=== PATIENT | female | born 1980 | race African-American/Black ===

== ENCOUNTER 2016-04-27 16:17 | Emergency (ER) | payer MEDICARE, OTHER ==
[~2016-04-27] VITALS: Ht 157.5 cm; Wt 95.0 kg
[~2016-04-27 16:17] MED LIST: 1-ME1LIQ PO; CALC667T PO; CLON.2 PO; FURO20 PO; LOSA100T PO; NOVONP2 SQ; NOVORP2 SQ
[2016-04-27 16:20] VITALS: BP 177/82; PULSE 90; RESP 20; TEMP 98.1; O2SAT 96
--- NOTE | 2016-04-27 17:08 | PD ---
Physical Exam Time Seen by Provider: 17:06 Narrative 35 year old female with ESRD on hemodialysis with HTN and DM presents to the ED for evaluation of L 3rd digit wound worsening over the last month. No recollection of injury. Pain radiates up the arm. No fever or chills. No n/v/d. No cp or tightness. Dialysis MWF. Data Data Last Documented VS Vital Signs Date Time Temp Pulse Resp B/P Pulse Ox O2 Delivery O2 Flow Rate FiO2 04/27/16 16:20 98.1 90 20 177/82 96 Room Air Orders Complete Blood Count With Diff (04/27/16 17:11) Basic Metabolic Panel (Bmp) (04/27/16 17:11) Coag Profile (04/27/16 17:11) Hand, Complete ([id number]) (04/27/16 ) Labs Laboratory Tests Test 04/27/16 18:00 White Blood Count 7.7 TH/MM3 Red Blood Count 3.86 MIL/MM3 Hemoglobin 12.3 GM/DL Hematocrit 36.6 % Mean Corpuscular Volume 94.8 FL Mean Corpuscular Hemoglobin 31.9 PG Mean Corpuscular Hemoglobin 33.7 % Concent Red Cell Distribution Width 13.9 % Platelet Count 193 TH/MM3 Mean Platelet Volume 7.3 FL Neutrophils (%) (Auto) 81.4 % Lymphocytes (%) (Auto) 11.5 % Monocytes (%) (Auto) 5.6 % Eosinophils (%) (Auto) 1.1 % Basophils (%) (Auto) 0.4 % Neutrophils # (Auto) 6.3 TH/MM3 Lymphocytes # (Auto) 0.9 TH/MM3 Monocytes # (Auto) 0.4 TH/MM3 Eosinophils # (Auto) 0.1 TH/MM3 Basophils # (Auto) 0.0 TH/MM3 CBC Comment DIFF FINAL Differential Comment Prothrombin Time 9.9 SEC Prothromb Time International 0.9 RATIO Ratio Activated Partial 25.3 SEC Thromboplast Time Sodium Level 133 MEQ/L Potassium Level 3.6 MEQ/L Chloride Level 95 MEQ/L Carbon Dioxide Level 30.9 MEQ/L Anion Gap 7 MEQ/L Blood Urea Nitrogen 24 MG/DL Creatinine 5.44 MG/DL Estimat Glomerular Filtration 11 ML/MIN Rate Random Glucose 367 MG/DL Calcium Level 9.2 MG/DL [facility] Medical Record Reviewed: Yes Supervised Visit with BEVERLEY: No Narrative Course Pt interviewed in triage area; work up initiated Condition: Stable Kelle Richards Apr 27, 2016 17:08
--- NOTE | 2016-04-27 17:53 | RADRPT ---
EXAM DATE/TIME: 04/27/2016 17:30 [facility] COMPARISON: No previous studies available for comparison. INDICATIONS : Right hand pain, radiates up arm, no known injury. MEDICAL HISTORY : Hypertension. End stage renal disease. Diabetes. Hemodialysis. SURGICAL HISTORY : None. ENCOUNTER: Initial ACUITY: 1 month PAIN SCORE: 7/10 LOCATION: Right hand. FINDINGS: Three view examination of the left hand demonstrates no soft tissue swelling, dislocation, or fractur e. The carpal bones appear intact. The interphalangeal and metacarpophalangeal joints are intact. Bony mineralization is normal. CONCLUSION: Negative for fracture or dislocation. Followup in 7-10 days is suggested if symptoms persist. Vasile Clark MD FACR on April 27, 2016 at 17:52 Board Certified Radiologist. This report was verified electronically.
[2016-04-27 18:52] LABS: AUTOMATED NEUTROPHIL # 6.3 TH/MM3 (1.8-7.7); BASOPHIL % 0.4 % (0.0-2.0); EOSINOPHIL # 0.1 TH/MM3 (0-0.4); EOSINOPHIL % 1.1 % (0.0-4.0); HEMATOCRIT 36.6 % (35.0-46.0); HEMO FLAGS DIFF FINAL; LYMPH % 11.5 % (9.0-44.0); LYMPHOCYTE # 0.9 TH/MM3 (1.0-4.8); MEAN CELL VOLUME 94.8 FL (80.0-100.0); MEAN CORPUSCULAR HEMOGLOBIN 31.9 PG (27.0-34.0); MEAN CORPUSCULAR HGB CONC 33.7 % (32.0-36.0); MONO % 5.6 % (0.0-8.0); NEUT % 81.4 % (16.0-70.0); PLATELET COUNT 193 TH/MM3 (150-450); RED BLOOD COUNT 3.86 MIL/MM3 (4.00-5.30); RED CELL DISTRIBUTION WIDTH 13.9 % (11.6-17.2); WHITE BLOOD COUNT 7.7 TH/MM3 (4.0-11.0)
[2016-04-27 19:07] LABS: APTT (PATIENT) 25.3 SEC (24.3-30.1); INTERNATIONAL NORMALIZED RATIO 0.9 RATIO; PROTHROMBIN TIME - PATIENT 9.9 SEC (9.8-11.6)
[2016-04-27 19:08] LABS: BICARBONATE 30.9 MEQ/L (21.0-32.0); POTASSIUM 3.6 MEQ/L (3.5-5.1)
[2016-04-27 20:19] VITALS: BP 177/89; PULSE 77; RESP 17; O2SAT 100
--- NOTE | 2016-04-27 20:40 | PD ---
HPI . Scabbed and discoloration to the left hand for a month Chief Complaint: Skin Problem Time Seen by Provider: 20:08 Travel History International Travel<30 days: No Contact w/Intl Traveler<30days: No Traveled to known affect area: No History of Present Illness HPI Patient presents with a scab and left hand discoloration for about a month. She reports that she has been on Cleocin for same for about a week. However, she has not taken the Cleocin today. She is not having associated fevers or chills. She is a dialysis patient. She states that she was told at dialysis to come to us today because it is getting worse rather than better. PFSH Past Medical History Arthritis: No Asthma: No Autoimmune Disease: No Blood Disorders: No Anxiety: No Depression: Yes Heart Rhythm Problems: No Cancer: No Cardiovascular Problems: Yes High Cholesterol: No Chemotherapy: No Chest Pain: No Congestive Heart Failure: No COPD: No Cerebrovascular Accident: No Diabetes: Yes Patient Takes Glucophage: No Dialysis: Yes () Diminished Hearing: No Deep Vein Thrombosis: Yes (RUE ) Endocrine: Yes GERD: No Glaucoma: No Genitourinary: Yes Headaches: No Hepatitis: No Hiatal Hernia: No Hypertension: Yes Immune Disorder: No Implanted Vascular Access Dvce: Yes (FISTULA L ARM) Kidney Stones: No Medical other: Yes (DIALYSIS --.) Musculoskeletal: No Neurologic: Yes Psychiatric: No Reproductive: No Respiratory: No Immunizations Current: Yes Migraines: Yes Myocardial Infarction: No Radiation Therapy: No Renal Failure: Yes Seizures: No Sickle Cell Disease: No Sleep Apnea: No Thyroid Disease: No Ulcer: No ?: Not LMP: 04/2016 : 3 Para: 2 Miscarriage: 0 : 1 Past Surgical History Abdominal Surgery: No AICD: No Appendectomy: No Arteriovenous Shunt: Yes Cardiac Surgery: No Section: Yes Cholecystectomy: No Ear Surgery: No Endocrine Surgery: No Eye Surgery: No Genitourinary Surgery: Yes (TENKOFF CATHETER PLACED 11/25/2010 & VASCATH ) Gynecologic Surgery: Yes (C SECTION X2) Insulin Pump: No Joint Replacement: No Neurologic Surgery: No Oral Surgery: No Pacemaker: No Thoracic Surgery: No Other Surgery: Yes (L. Upper Arm Fistula ) Social History Alcohol Use: Yes (OCCASIONALLY) Tobacco Use: No Substance Use: No Allergies-Medications (Allergen,Severity, Reaction): Coded Allergies: Penicillin (Verified Allergy, Severe, HIVES,RASH, 04/27/16) Reported Meds & Prescriptions Reported Meds & Active Scripts Active Review of Systems Except as stated in HPI: all other systems reviewed are Neg General / Constitutional: No: Fever, Chills Skin: Positive Change in Pigmentation, Positive Lesions Physical Exam Narrative GENERAL: Patient awake appearing female in no acute distress SKIN: Warm and dry. Esteban appearance of the skin of the left hand compatible with her circulation. She has a scab on her left third finger. There is no warmth or fluctuance. HEAD: Atraumatic. Normocephalic. EYES: Pupils equal and round. NECK: Trachea midline. Neck supple. CARDIOVASCULAR: Regular rate and rhythm. RESPIRATORY: No accessory muscle use. MUSCULOSKELETAL: No obvious deformities. No edema. NEUROLOGICAL: Awake and alert. No obvious cranial nerve deficits. Motor grossly within normal limits. Normal speech. PSYCHIATRIC: Appropriate mood and affect; insight and judgment normal. Data Data Last Documented VS Vital Signs Date Time Temp Pulse Resp B/P Pulse Ox O2 Delivery O2 Flow Rate FiO2 04/27/16 20:19 79 17 04/27/16 20:19 177/89 100 Room Air 04/27/16 16:20 98.1 Orders Complete Blood Count With Diff (04/27/16 17:11) Basic Metabolic Panel (Bmp) (04/27/16 17:11) Coag Profile (04/27/16 17:11) Hand, Complete ([id number]) (04/27/16 ) Labs Laboratory Tests Test 04/27/16 18:00 White Blood Count 7.7 TH/MM3 Red Blood Count 3.86 MIL/MM3 Hemoglobin 12.3 GM/DL Hematocrit 36.6 % Mean Corpuscular Volume 94.8 FL Mean Corpuscular Hemoglobin 31.9 PG Mean Corpuscular Hemoglobin 33.7 % Concent Red Cell Distribution Width 13.9 % Platelet Count 193 TH/MM3 Mean Platelet Volume 7.3 FL Neutrophils (%) (Auto) 81.4 % Lymphocytes (%) (Auto) 11.5 % Monocytes (%) (Auto) 5.6 % Eosinophils (%) (Auto) 1.1 % Basophils (%) (Auto) 0.4 % Neutrophils # (Auto) 6.3 TH/MM3 Lymphocytes # (Auto) 0.9 TH/MM3 Monocytes # (Auto) 0.4 TH/MM3 Eosinophils # (Auto) 0.1 TH/MM3 Basophils # (Auto) 0.0 TH/MM3 CBC Comment DIFF FINAL Differential Comment Prothrombin Time 9.9 SEC Prothromb Time International 0.9 RATIO Ratio Activated Partial 25.3 SEC Thromboplast Time Sodium Level 133 MEQ/L Potassium Level 3.6 MEQ/L Chloride Level 95 MEQ/L Carbon Dioxide Level 30.9 MEQ/L Anion Gap 7 MEQ/L Blood Urea Nitrogen 24 MG/DL Creatinine 5.44 MG/DL Estimat Glomerular Filtration 11 ML/MIN Rate Random Glucose 367 MG/DL Calcium Level 9.2 MG/DL [facility] Medical Decision Making Medical Screen Exam Complete: Yes Emergency Medical Condition: Yes Differential Diagnosis My differential diagnosis includes but is not limited to cellulitis, abscess, vascular insufficiency, burn, abrasion Narrative Course Patient presents to us from dialysis for the evaluation of a scab on her left hand with some associated skin color changes. The appearance is not typical of infection. It is more typical of vascular insufficiency. There is no warmth. There is no fluctuance. The redness is more of a esteban red than a bright red normally seen with cellulitis. White blood count is normal at 7.7. The patient should continue her current antibiotic therapy. Diagnosis Primary Impression: Peripheral vascular disease Disposition: DISCHARGE HOME Condition: Stable Valeri Heredia MD Apr 27, 2016 20:40
[2016-04-27] MEDS ORDERED: NOVONP2 SQ (20:58)
[2016-04-27] MEDS ORDERED: NOVORP2 SQ (20:58)
[2016-04-27] MEDS ORDERED: LEVA750T PO (20:58)
[2016-05-06] MEDS ORDERED: AMLO10TA2 PO (15:06)
[2016-05-06] MEDS ORDERED: CLON0.2T PO (15:06)
[2016-05-06] MEDS ORDERED: CALC668T PO (15:06)
[2016-05-06] MEDS ORDERED: LOSA25TA PO (15:06)
[2016-05-06] MEDS ORDERED: FURO40TA PO (15:06)
[2016-08-29] MEDS ORDERED: ZOLO100T PO (14:22)
[2016-08-29] MEDS ORDERED: ABIL2TAB2 PO (14:22)
[2016-09-30] MEDS ORDERED: CALC1CAP PO (11:44)
[2016-09-30] MEDS ORDERED: HYDR-3535 PO (14:26)
[2016-10-03] MEDS ORDERED: GENT0.1C TOPICAL (09:10)
== END 2016-04-27 20:59 | disposition home or self-care (01) ==
LOC: NEPC 16:17
DX: I73.9 Peripheral vascular disease, unspecified (principal); E11.22 Type 2 diabetes mellitus with diabetic chronic kidney disease; I12.0 Hypertensive chronic kidney disease with stage 5 chronic kidney disease or end stage renal disease; N18.6 End stage renal disease; Z99.2 Dependence on renal dialysis
CPT/HCPCS: 73130; 80048; 85025; 85610; 85730; 99283

== ENCOUNTER → 2016-07-19 | Outpatient (CLI) | payer MEDICARE, OTHER ==
[~2016-07-19] MED LIST changes: -1-ME1LIQ PO; +ABIL2TAB2 PO; +AMLO10TA2 PO; +CALC1CAP PO; -CALC667T PO; +CALC668T PO; -CLON.2 PO; +CLON0.2T PO; -FURO20 PO; +FURO40TA PO; +GENT0.1C TOPICAL; +HYDR-3535 PO; -LOSA100T PO; +LOSA25TA PO; +ZOLO100T PO
[2016-07-19 11:26] LABS: RHEUMATOID FACTOR TRIGGER LESS THAN 10.0 IU/ML (0.0-14.9)
== END ==
LOC: CLAB 10:31
PROVIDERS: ATTEND Family Medicine
DX: M25.50 Pain in unspecified joint (principal); L98.499 Non-pressure chronic ulcer of skin of other sites with unspecified severity
CPT/HCPCS: 36415; 86038; 86430

== ENCOUNTER → 2016-08-23 | Outpatient (CLI) | payer MEDICARE, OTHER ==
[2016-08-23 14:23] LABS: BASOPHIL % 0.6 % (0.0-2.0); EOSINOPHIL # 0.1 TH/MM3 (0-0.4); EOSINOPHIL % 2.6 % (0.0-4.0); HEMATOCRIT 32.8 % (35.0-46.0); HEMO FLAGS DIFF FINAL; LYMPH % 20.5 % (9.0-44.0); LYMPHOCYTE # 1.2 TH/MM3 (1.0-4.8); MEAN CELL VOLUME 98.1 FL (80.0-100.0); MEAN CORPUSCULAR HGB CONC 33.6 % (32.0-36.0); MONO % 6.4 % (0.0-8.0); NEUT % 69.9 % (16.0-70.0); PLATELET COUNT 181 TH/MM3 (150-450); RED BLOOD COUNT 3.34 MIL/MM3 (4.00-5.30); WHITE BLOOD COUNT 5.7 TH/MM3 (4.0-11.0)
[2016-08-23 15:06] LABS: BICARBONATE 26.5 MEQ/L (21.0-32.0); POTASSIUM 5.5 MEQ/L (3.5-5.1)
== END ==
LOC: CLAB 13:46
PROVIDERS: ATTEND Surgery Vascular Surgery
DX: N18.6 End stage renal disease (principal)
CPT/HCPCS: 36415; 80048; 85025

== ENCOUNTER → 2016-08-30 | Day surgery (SDC) | payer MEDICARE, OTHER ==
[~2016-08-30] VITALS: Ht 157.5 cm; Wt 104.4 kg
[~2016-08-30] MED LIST changes: +*LABETALOL HCL 100 MG/20 ML VIAL PERIprocedural Use ONLY ONE; +BUPIVACAINE/EPINEPHRINE 0.25% 50 ML VIAL ONE; +CHLORHEXIDINE GLUCONATE 2 % 1 PACK (2 CLOTHS) TOPICAL PRN; +FAMOTIDINE 20 MG/2 ML VIAL ONE; +HEPARIN SODIUM - SQ 10,000 UNITS/ML VIAL ONE; +INSULIN HUMAN REGULAR 1,000 UNITS/10 ML VIAL SQ PRN; +IOHEXOL 350 MG/ML 50 ML BTL (for Cath Lab) ONE; +KETAMINE HCL 500 MG/5 ML VIAL ONE; +LACTATED RINGER'S 1000 ML IV PRN; +METOPROLOL TARTRATE 25 MG TAB PO PRN; +MIDAZOLAM HCL 2 MG/2 ML VIAL ONE; +ONDANSETRON HCL 4 MG/2 ML VIAL IV PUSH ONE; +PHENYLEPH/NS 1000 MCG/10 ML SYR IV ONE; +POVIDONE IODINE 5% (ANTISEPSIS KIT) 4 APPLICATIONS EACH NARE PRN; +PROPOFOL 200 MG/20 ML AMP IV ONE; +SODIUM CHLORID 0.9% 500 ML INJ 500 ML IV ONE; +SODIUM CHLORID 0.9% 500 ML IV PRN; +VANCOMYCIN HCL 1000 MG ON-CALL/NS 250 ML IV SCH; +VANCOMYCIN HCL 1000 MG VIAL ONE
[2016-08-30 09:55] VITALS: BP 186/87; PULSE 85; RESP 20; TEMP 99.3; O2SAT 99
[2016-08-30 11:24] LABS: AUTOMATED NEUTROPHIL # 3.3 TH/MM3 (1.8-7.7); BASOPHIL % 0.7 % (0.0-2.0); EOSINOPHIL # 0.1 TH/MM3 (0-0.4); EOSINOPHIL % 2.5 % (0.0-4.0); HEMATOCRIT 32.4 % (35.0-46.0); HEMO FLAGS DIFF FINAL; LYMPH % 22.8 % (9.0-44.0); LYMPHOCYTE # 1.2 TH/MM3 (1.0-4.8); MEAN CELL VOLUME 98.6 FL (80.0-100.0); MEAN CORPUSCULAR HEMOGLOBIN 31.4 PG (27.0-34.0); MEAN CORPUSCULAR HGB CONC 31.8 % (32.0-36.0); MONO % 9.5 % (0.0-8.0); NEUT % 64.5 % (16.0-70.0); PLATELET COUNT 129 TH/MM3 (150-450); RED BLOOD COUNT 3.29 MIL/MM3 (4.00-5.30); RED CELL DISTRIBUTION WIDTH 14.8 % (11.6-17.2); WHITE BLOOD COUNT 5.2 TH/MM3 (4.0-11.0)
[2016-08-30 11:47] LABS: BICARBONATE 27.7 MEQ/L (21.0-32.0); POTASSIUM 5.9 MEQ/L (3.5-5.1)
[2016-08-30 14:58] VITALS: BP 149/96; PULSE 74; RESP 18; TEMP 97.8; O2SAT 99
--- NOTE | 2016-08-30 20:19 | MP ---
cc: MORALES EDWARDS JAMES DATE OF SURGERY 08/30/16 PREOPERATIVE DIAGNOSIS Chronic kidney disease. Existing left brachial basilic AV fistula is creating ischemic steel left hand. Needs new permanent hemodialysis access. Prior to planned sacrifice left brachial basilic AV fistula. SURGEON Zane Rock MD ANESTHESIA Local MAC PROCEDURE IN DETAIL With the patient in the supine position and under IV sedation, the right arm, axilla and shoulder were prepped with Betadine and draped in a sterile fashion. One gram of Ancef was administered and, following a protocol time-out, the skin and subcutaneous tissue along the post incisional area was preemptively infiltrated with 0.5% Marcaine with epinephrine. A curvilinear 3 cm incision was performed through which the cephalic vein was circumferentially mobilized. The vein was ligated distally with small hemoclips, transected proximal to the hemoclips, flushed with heparinized saline. Diluted contrast was injected in conjunction with digital C-arm fluoroscopic imaging to assess areas within the proximal cephalic vein which, by duplex scan, exhibited questionable patency. The cephalic vein occluded at the mid biceps level. Multiple large superficial subcutaneous collaterals provided outflow across the thoracic region and eventually collateralized to what appeared to be the azygous. The right axillary and subclavian veins appeared totally occluded, never reconstituted. Given the angiographic findings, plan for right extremity AV access creation will have to be abandoned. The vein was ligated with 4-0 silk. The incision was closed with continuous subcutaneous 4-0 Monocryl, continuous subcuticular 5-0 Monocryl, reinforced with Steri-Strips and covered with sterile gauze. Instrument, needle, sponge count correct x2. No operative complications. The patient returned to the recovery room in stable condition having tolerated procedure well. MD JOSE Kunz/ /3:34 PM /8:09 PM
== END | disposition home or self-care (01) ==
LOC: HSDC 09:07
PROVIDERS: ATTEND Surgery Vascular Surgery
DX: T82.898A Other specified complication of vascular prosthetic devices, implants and grafts, initial encounter (principal); I12.0 Hypertensive chronic kidney disease with stage 5 chronic kidney disease or end stage renal disease; N18.6 End stage renal disease; E11.9 Type 2 diabetes mellitus without complications; Z99.2 Dependence on renal dialysis; Z01.810 Encounter for preprocedural cardiovascular examination; Z01.818 Encounter for other preprocedural examination
CPT/HCPCS: 01844; 36825; 76000; 80048; 82948; 85025; J1644; J1815; J2250; J2370; J2405; J3010; J3370; J7040; Q9967

== ENCOUNTER 2016-10-18 06:34 | Observation (INO) | payer MEDICARE, OTHER ==
[~2016-10-18] VITALS: Ht 157.5 cm; Wt 98.7 kg
[~2016-10-18 06:34] MED LIST changes: -*LABETALOL HCL 100 MG/20 ML VIAL PERIprocedural Use ONLY ONE; -BUPIVACAINE/EPINEPHRINE 0.25% 50 ML VIAL ONE; -CALC668T PO; -CHLORHEXIDINE GLUCONATE 2 % 1 PACK (2 CLOTHS) TOPICAL PRN; -FAMOTIDINE 20 MG/2 ML VIAL ONE; -HEPARIN SODIUM - SQ 10,000 UNITS/ML VIAL ONE; -INSULIN HUMAN REGULAR 1,000 UNITS/10 ML VIAL SQ PRN; -IOHEXOL 350 MG/ML 50 ML BTL (for Cath Lab) ONE; -KETAMINE HCL 500 MG/5 ML VIAL ONE; -LACTATED RINGER'S 1000 ML IV PRN; -METOPROLOL TARTRATE 25 MG TAB PO PRN; -MIDAZOLAM HCL 2 MG/2 ML VIAL ONE; -ONDANSETRON HCL 4 MG/2 ML VIAL IV PUSH ONE; -PHENYLEPH/NS 1000 MCG/10 ML SYR IV ONE; -POVIDONE IODINE 5% (ANTISEPSIS KIT) 4 APPLICATIONS EACH NARE PRN; -PROPOFOL 200 MG/20 ML AMP IV ONE; -SODIUM CHLORID 0.9% 500 ML INJ 500 ML IV ONE; -SODIUM CHLORID 0.9% 500 ML IV PRN; -VANCOMYCIN HCL 1000 MG ON-CALL/NS 250 ML IV SCH; -VANCOMYCIN HCL 1000 MG VIAL ONE
[2016-10-18] MEDS ORDERED: INSULIN HUMAN REGULAR 1,000 UNITS/10 ML VIAL SQ PRN (07:00)
[2016-10-18] MEDS ORDERED: CHLORHEXIDINE GLUCONATE 2 % 1 PACK (2 CLOTHS) TOPICAL PRN (07:00)
[2016-10-18] MEDS ORDERED: VANCOMYCIN HCL 1000 MG ON-CALL/NS 250 ML IV SCH ×2 (07:00)
[2016-10-18] MEDS ORDERED: POVIDONE IODINE 5% (ANTISEPSIS KIT) 4 APPLICATIONS EACH NARE PRN (07:00)
[2016-10-18] MEDS ORDERED: LACTATED RINGER'S 1000 ML IV PRN (07:00)
[2016-10-18] MEDS ORDERED: METOPROLOL TARTRATE 25 MG TAB PO PRN (07:00)
[2016-10-18] MEDS ORDERED: SODIUM CHLORID 0.9% 500 ML IV PRN (07:00)
[2016-10-18 07:19] VITALS: BP 153/78; PULSE 74; RESP 18; TEMP 98.4; O2SAT 99
[2016-10-18] MEDS ORDERED: HEPARIN SODIUM - SQ 10,000 UNITS/ML VIAL ONE (07:37)
[2016-10-18 07:48] LABS: AUTOMATED NEUTROPHIL # 5.4 TH/MM3 (1.8-7.7); BASOPHIL # 0.1 TH/MM3 (0-0.2); BASOPHIL % 0.7 % (0.0-2.0); EOSINOPHIL # 0.1 TH/MM3 (0-0.4); EOSINOPHIL % 1.6 % (0.0-4.0); HEMATOCRIT 31.6 % (35.0-46.0); HEMO FLAGS DIFF FINAL; LYMPH % 15.9 % (9.0-44.0); LYMPHOCYTE # 1.2 TH/MM3 (1.0-4.8); MEAN CELL VOLUME 96.4 FL (80.0-100.0); MEAN CORPUSCULAR HEMOGLOBIN 32.7 PG (27.0-34.0); MEAN CORPUSCULAR HGB CONC 33.9 % (32.0-36.0); NEUT % 73.8 % (16.0-70.0); PLATELET COUNT 166 TH/MM3 (150-450); RED BLOOD COUNT 3.28 MIL/MM3 (4.00-5.30); RED CELL DISTRIBUTION WIDTH 14.4 % (11.6-17.2); WHITE BLOOD COUNT 7.3 TH/MM3 (4.0-11.0)
[2016-10-18 07:57] LABS: BICARBONATE 27.2 MEQ/L (21.0-32.0); POTASSIUM 5.5 MEQ/L (3.5-5.1)
[2016-10-18] MEDS ORDERED: FAMOTIDINE 20 MG/2 ML VIAL ONE (08:05)
[2016-10-18] MEDS ORDERED: MIDAZOLAM HCL 2 MG/2 ML VIAL ONE (08:05)
[2016-10-18] MEDS ORDERED: KETAMINE HCL 500 MG/5 ML VIAL ONE (08:05)
[2016-10-18] MEDS ORDERED: BUPIVACAINE/EPINEPHRINE 0.5% 50 ML VIAL INFIL ONE (08:48)
--- NOTE | 2016-10-18 09:57 | EKG ---
Date Performed: 10/18/2016 Time Performed: 07:22:19 PTAGE: 35 years EKG: Sinus rhythm NORMAL ECG Compared to prior tracing no significant change PREVIOUS TRACING : 08/20/2014 00.54 DOCTOR: Osbaldo Tracy Interpretating Date/Time 10/18/2016 09:51:57
[2016-10-18] MEDS ORDERED: IOHEXOL 350 MG/ML 50 ML BTL (for RAD DIAG) ONE (12:00)
[2016-10-18] MEDS ORDERED: ONDANSETRON HCL 4 MG/2 ML VIAL IV PUSH ONE (12:00)
[2016-10-18] MEDS ORDERED: ePHEDrine/NS 25 MG/5 ML SYR IV ONE (12:00)
[2016-10-18] MEDS ORDERED: NS 500 ML (EXCEL BAG) 500 ML BAG IV ONE (12:00)
[2016-10-18] MEDS ORDERED: PHENYLEPH/NS 1000 MCG/10 ML SYR IV ONE (12:00)
[2016-10-18] MEDS ORDERED: PROPOFOL 200 MG/20 ML AMP IV ONE (12:00)
[2016-10-18] MEDS ORDERED: fentaNYL CITRATE 250 MCG/5 ML AMP ONE (12:34)
[2016-10-18] MEDS ORDERED: ONDANSETRON HCL 4 MG/2 ML VIAL IV PUSH PRN (14:15)
[2016-10-18] MEDS ORDERED: DEXTROSE 50% IN WATER 50 ML VIAL(D50) IV PUSH PRN (14:30)
[2016-10-18] MEDS ORDERED: PLEASE DISCONTINUE PREVIOUS SUPPLEMENTAL SCALE INSULIN ORDERS ONE (14:30)
[2016-10-18] MEDS ORDERED: GLUCAGON 1 MG/ML VIAL OTHER PRN (14:30)
[2016-10-18] MEDS ORDERED: DO NOT ADM ANY ANTICOAGULANT DRUGS PRN (14:45)
[2016-10-18 16:00] VITALS: BP 154/76; PULSE 81; RESP 19; TEMP 97.8; O2SAT 98
[2016-10-18] MEDS: MEDIUM DOSE INSULIN NOVOLOG SUPPLEMENTAL SCALE SQ SCH ×2 (16:00→23:35)
[2016-10-18] MEDS: ACETAMINOPHEN/HYDROcodone 325 MG/7.5 MG TAB PO PRN ×2 (18:26→23:37)
[2016-10-18 20:00] VITALS: BP 145/64; PULSE 78; RESP 19; TEMP 98.5; O2SAT 95
[2016-10-18] MEDS ORDERED: LOSARTAN 25 MG TAB PO PRN (20:00)
[2016-10-18] MEDS: FUROSEMIDE 40 MG TAB PO SCH (20:40)
[2016-10-18] MEDS: cloNIDine HCL 0.2 MG TAB PO SCH (20:40)
[2016-10-19] VITALS: BP 141/60; PULSE 71; RESP 19; TEMP 98.6; O2SAT 95
[2016-10-19 04:00] VITALS: BP 129/71; PULSE 72; RESP 19; TEMP 98.2; O2SAT 96
[2016-10-19] MEDS: ACETAMINOPHEN/HYDROcodone 325 MG/7.5 MG TAB PO PRN (06:16)
[2016-10-19] MEDS: MEDIUM DOSE INSULIN NOVOLOG SUPPLEMENTAL SCALE SQ SCH ×2 (06:20→11:00)
[2016-10-19] MEDS ORDERED: INSULIN HUMAN NPH 1,000 UNITS/10 ML VIAL SQ SCH (07:00)
[2016-10-19 08:00] VITALS: BP 104/58; PULSE 75; RESP 19; TEMP 97.5; O2SAT 97
--- NOTE | 2016-10-19 08:08 | MP ---
cc: JAQUI ROCK DATE OF SURGERY October 18, 2016 PREOPERATIVE DIAGNOSIS Progressive steal ischemia left hand status post left brachiobasilic A-V fistula creation. POSTOPERATIVE DIAGNOSIS Progressive steal ischemia left hand status post left brachiobasilic A-V fistula creation. OPERATIVE PROCEDURE Left brachial arteriogram. Distal revascularization and interval ligation with right greater saphenous vein harvest. SURGEON Paresh Rock MD ARBORIST CLIMBER SHUN Gunter ANESTHESIA LMA/local. DESCRIPTION OF THE OPERATIVE PROCEDURE With the patient in the supine position and under LMA, the right groin and thigh were prepped with Betadine, draped in a sterile fashion. 1 gram of vancomycin was administered intravenously. Following a protocol time-out, the skin and subcutaneous tissue overlying the proximal right greater saphenous vein was infiltrated with 0.25% Marcaine with epinephrine. A curvilinear incision was performed along the course of the proximal greater saphenous vein. An approximately 8-cm segment of the vein was circumferentially mobilized, ligated proximally and distally with 4-0 silk ties and divided between the ligatures. The vein was flushed with heparinized saline. The right greater saphenous vein harvest incision was closed with running subcutaneous 4-0 Monocryl, continuous subcuticular 5-0 Monocryl. Steri-Strips and sterile dressing were applied. The left arm, axilla and shoulder were prepped with Betadine and draped in a sterile fashion. The skin and subcutaneous tissue within the old brachiobasilic A-V fistula creation and supra-fistulization scar was infiltrated proximal and distal to the brachial artery to basilic vein anastomosis with 0.25% Marcaine with epinephrine. Incisions were performed overlying the brachial artery proximal and distal to the existing basilic vein anastomosis. The brachial artery was circumferentially mobilized proximally and distally. The brachial artery was accessed proximally with a 21-gauge butterfly needle. Diluted contrast was injected in conjunction with digital C-arm fluoroscopic imaging. This confirmed a widely patent brachial artery. The brachial artery was focally constricted immediately proximal to the basilic vein anastomosis. Beyond the anastomosis, the artery was of normal diameter and bifurcated into unrestricted radial and ulnar arteries. The brachial artery was occluded at the elbow level proximally and distally with Yasargil clips. A vertical arteriotomy was performed along the anteromedial surface. The artery was flushed distally with heparinized saline for regional heparinization. The saphenous vein graft was reversed, spatulated on end and anastomosed end-to-side to the arteriotomy with continuous 7-0 Prolene. The vein graft was tunneled subcutaneously and brought out at the proximal brachial artery exposure site. The vein was occluded immediately proximal to the brachial artery anastomosis and the occluding brachial artery Yasargil clip removed reestablishing pulsatile flow within the [place] brachial artery. The brachial artery was occluded proximally with Yasargil clips, a vertical 4-mm arteriotomy performed along the anteromedial surface and the artery flushed proximally and distally with heparinized saline. The vein graft was trimmed to appropriate length, spatulated on end and anastomosed end-to-side to the arteriotomy with continuous 7-0 Prolene. The occluding Yasargil clips were then removed reestablishing pulsatile flow within the [place] brachial artery as well as into the saphenous vein graft. Significant augmentation of Doppler flow within the distal radial artery occurred with occlusion of the brachial artery immediately proximal to the distal saphenous vein anastomosis. The artery was ligated between the basilic and distal saphenous vein anastomoses with 4-0 silk to complete interval ligation and significantly improve distal flow and resolve any retrograde flow. Strict hemostasis was assured. Both incisions were closed with running subcutaneous 4-0 Monocryl, continuous subcuticular 5-0 Monocryl, reinforced with Steri-Strips and covered with sterile gauze. Instrument, needle and sponge count correct x 2. At the conclusion of the procedure the left radial pulse was easily palpable with robust triphasic Doppler flow. The patient returned to Recovery in stable condition having tolerated the procedure well. Jaqui Rock MD JTS/SSB /6:49 PM /7:52 AM
[2016-10-19] MEDS ORDERED: SERTRALINE HCL 100 MG TAB PO SCH (09:00)
[2016-10-19] MEDS ORDERED: ARIPiprazole 2 MG TAB PO SCH (09:00)
[2016-10-19] MEDS: cloNIDine HCL 0.2 MG TAB PO SCH (09:00)
[2016-10-19] MEDS ORDERED: CALCIUM ACETATE 667 MG CAP PO SCH (09:00)
[2016-10-19] MEDS: FUROSEMIDE 40 MG TAB PO SCH (09:02)
[2016-10-19 12:00] VITALS: BP 110/58; PULSE 76; RESP 19; TEMP 98.6; O2SAT 100
[2016-10-21] MEDS ORDERED: DAKINSFST TOPICAL (09:45)
== END 2016-10-19 16:09 | disposition home or self-care (01) ==
LOC: HSDC 06:34 → N07A 16:16
PROVIDERS: ADMIT Surgery Vascular Surgery; ATTEND Surgery Vascular Surgery
PROC: 06LP0ZZ Occlusion of Right Saphenous Vein, Open Approach (ICD-10-PCS; principal; 2016-10-18 08:07)
DX: T82.898A Other specified complication of vascular prosthetic devices, implants and grafts, initial encounter (principal); E78.5 Hyperlipidemia, unspecified; I12.0 Hypertensive chronic kidney disease with stage 5 chronic kidney disease or end stage renal disease; E11.22 Type 2 diabetes mellitus with diabetic chronic kidney disease; N18.6 End stage renal disease; Z99.2 Dependence on renal dialysis; Z79.84 Long term (current) use of oral hypoglycemic drugs
CPT/HCPCS: 01844; 36838; 76000; 80048; 82948; 85025; 93005; G0378; J1644; J1815; J2250; J2370; J2405; J3010; J3370; J7040; J7050; Q9967

== ENCOUNTER 2016-11-04 23:27 | Inpatient (IN) | payer MEDICARE, OTHER ==
[~2016-11-04] VITALS: Ht 157.5 cm; Wt 99.1 kg
[~2016-11-04 23:27] MED LIST changes: +DAKINSFST TOPICAL
[2016-11-04 23:30] VITALS: BP 162/76; PULSE 91; RESP 16; TEMP 99.4; O2SAT 98
[2016-11-05] VITALS (9 sets, daily range): BP systolic 95–166; BP diastolic 46–74; PULSE 56–90; RESP 14–18; TEMP 95.8–97.8; O2SAT 99–100
[2016-11-05 02:18] LABS: AUTOMATED NEUTROPHIL # 5.9 TH/MM3 (1.8-7.7); BASOPHIL % 0.6 % (0.0-2.0); EOSINOPHIL # 0.2 TH/MM3 (0-0.4); EOSINOPHIL % 2.6 % (0.0-4.0); HEMATOCRIT 33.4 % (35.0-46.0); HEMO FLAGS DIFF FINAL; LYMPH % 15.3 % (9.0-44.0); LYMPHOCYTE # 1.2 TH/MM3 (1.0-4.8); MEAN CELL VOLUME 94.6 FL (80.0-100.0); MEAN CORPUSCULAR HEMOGLOBIN 31.4 PG (27.0-34.0); MEAN CORPUSCULAR HGB CONC 33.2 % (32.0-36.0); MONO % 5.7 % (0.0-8.0); NEUT % 75.8 % (16.0-70.0); PLATELET COUNT 180 TH/MM3 (150-450); RED BLOOD COUNT 3.53 MIL/MM3 (4.00-5.30); RED CELL DISTRIBUTION WIDTH 14.6 % (11.6-17.2); WHITE BLOOD COUNT 7.8 TH/MM3 (4.0-11.0)
[2016-11-05] MEDS ORDERED: CIPROFLOXACIN 400 MG PREMIX 200 ML IV ONE (02:30)
--- NOTE | 2016-11-05 02:31 | RADRPT ---
EXAM DATE/TIME: 11/05/2016 02:06 [facility] COMPARISON: No previous studies available for comparison. INDICATIONS : Right leg swelling. Status post venous graft. RADIATION DOSE: 39.44 CTDIvol (mGy) ; Patient body habitus MEDICAL HISTORY : None SURGICAL HISTORY : Venous graft. ENCOUNTER: Initial ACUITY: 3 weeks PAIN SCALE: 4/10 LOCATION: Right medial leg TECHNIQUE: Volumetric scanning of the femur was performed. Using automated exposure control and adjustment of t he mA and/or kV according to patient size, radiation dose was kept as low as reasonably achievable to obtain optimal diagnostic quality images. DICOM format image data is available electronically for review and comparison. FINDINGS: BONES: No evidence of fracture. Alignment is within normal limits. JOINTS: No evidence of joint narrowing or effusion. SOFT TISSUES: Muscles, tendons, and neurovascular structures are grossly unremarkable. Within the anterior subcutan eous fat there is a 7.7 x 9.6 cm mass. It extends for up to 13.1 cm in length. I suspect a subcutaneo us abscess with some surrounding soft tissue edema possible cellulitis. It abuts the abductor compar tment but I don't see any muscular extend or muscular edema CONCLUSION: Large mass within the subcutaneous fat anteromedially in the right upper leg. No intramuscular involv ement is noted. Juvenal Brooks MD on November 05, 2016 at 2:28 Board Certified Radiologist. This report was verified electronically.
[2016-11-05 02:32] LABS: APTT (PATIENT) 24.7 SEC (24.3-30.1); INTERNATIONAL NORMALIZED RATIO 0.9 RATIO; PROTHROMBIN TIME - PATIENT 10.2 SEC (9.8-11.6)
[2016-11-05 02:36] LABS: BICARBONATE 30.8 MEQ/L (21.0-32.0); POTASSIUM 4.5 MEQ/L (3.5-5.1)
--- NOTE | 2016-11-05 02:44 | PD ---
HPI Chief Complaint: Wound/Suture/Staple Re-Check Time Seen by Provider: 01:48 Travel History International Travel<30 days: No Contact w/Intl Traveler<30days: No Traveled to known affect area: No History of Present Illness HPI 35-year-old female presents to the emergency department for swelling to the right groin. Patient has had progressively worsening increasing swelling to the right groin since undergoing elective repair of her left upper extremity AV fistula with right saphenous vein harvesting 10/18/16. Patient has noted ongoing increasing size of this area and following mentioned it to her commander internal affairs during dialysis and was told to come to the emergency room and to contact her vascular surgeon. Patient attempted to contact her vascular surgeon Dr. Rock but he is out of town. Patient was told to come to the emergency room earlier on Monday but states she could not get to the emergency room because she had childcare issues and presents now for further evaluation. Patient denies any fever chills nausea vomiting abdominal pain lower extremity pain or swelling distal to the site of the harvesting no purulent drainage from the area and no increased warmth although the area is red and swollen. Patient denies other concerns or complaints. Patient is type I diabetic and reports blood sugars 7 well-controlled; patient has renal failure secondary to diabetes and undergoes hemodialysis Tuesdays and Wednesdays. PFSH Past Medical History Arthritis: No Asthma: No Autoimmune Disease: No Blood Disorders: No Anxiety: No Depression: Yes Heart Rhythm Problems: No Cancer: No Cardiovascular Problems: Yes High Cholesterol: No Chemotherapy: No Chest Pain: No Congestive Heart Failure: No COPD: No Cerebrovascular Accident: No Diabetes: Yes (DM I) Patient Takes Glucophage: No Dialysis: Yes () Diminished Hearing: No Deep Vein Thrombosis: Yes (RUE ) Endocrine: Yes GERD: No Glaucoma: No Headaches: No Hepatitis: No Hiatal Hernia: No Hypertension: Yes Immune Disorder: No Kidney Stones: No Medical other: Yes (DIALYSIS --) Musculoskeletal: No Neurologic: No Psychiatric: No Reproductive: No Respiratory: No Immunizations Current: Yes Migraines: Yes Myocardial Infarction: No Radiation Therapy: No Renal Failure: Yes Seizures: No Sickle Cell Disease: No Sleep Apnea: No Thyroid Disease: No Ulcer: No ?: Not LMP: 11/05/16 : 3 Para: 2 Miscarriage: 0 : 1 Past Surgical History Abdominal Surgery: No AICD: No Appendectomy: No Arteriovenous Shunt: Yes Body Medical Devices: lue fistula Cardiac Surgery: No Section: Yes Cholecystectomy: No Ear Surgery: No Endocrine Surgery: No Eye Surgery: No Genitourinary Surgery: Yes (TENKOFF CATHETER PLACED 11/25/2010 & VASCATH ) Gynecologic Surgery: Yes (C SECTION X2) Insulin Pump: No Joint Replacement: No Neurologic Surgery: No Oral Surgery: No Pacemaker: No Thoracic Surgery: No Other Surgery: Yes (L. Upper Arm Fistula ) Social History Alcohol Use: Yes (OCCASIONALLY) Tobacco Use: No Substance Use: No Allergies-Medications (Allergen,Severity, Reaction): Coded Allergies: Penicillin (Verified Allergy, Severe, HIVES,RASH, 11/05/16) Reported Meds & Prescriptions Reported Meds & Active Scripts Active Gentamicin Topical 0.1% Cream 1 Applic TOPICAL BID Apply to affected area(s) Lortab (Hydrocodone-Acetaminophen) 10-325 Mg Tab 1 Tab PO BID PRN Reported Calcium Acetate (Phosphate Binder) 667 Mg Cap 1,334 Mg PO DAILY Abilify (Aripiprazole) 2 Mg Tab 2 Mg PO DAILY Zoloft (Sertraline HCl) 100 Mg Tab 100 Mg PO DAILY Losartan (Losartan Potassium) 25 Mg Tab 25 Mg PO DAILY PRN Furosemide 40 Mg Tab 40 Mg PO BID Amlodipine (Amlodipine Besylate) 10 Mg Tab 20 Mg PO DAILY Clonidine (Clonidine HCl) 0.2 Mg Tab 0.2 Mg PO BID Novolin R Inj (Insulin Human Regular) 1,000 Unit/10 Ml Vial 0 SQ DIRECTED Sliding Scale As Directed. Novolin N Inj (Insulin Human NPH) 1,000 Unit/10 Ml Vial 30 Units SQ BIDAC Review of Systems Except as stated in HPI: all other systems reviewed are Neg Physical Exam Narrative GENERAL: Well-developed well-nourished female in no acute distress no respiratory distress talking on cell phone GCS 15 SKIN: Warm and dry. HEAD: Normocephalic. EYES: No scleral icterus. No injection or drainage. NECK: Supple, trachea midline. No JVD or lymphadenopathy. CARDIOVASCULAR: Regular rate and rhythm without murmurs, gallops, or rubs. RESPIRATORY: Breath sounds equal bilaterally. No accessory muscle use. GASTROINTESTINAL: Abdomen soft, non-tender, nondistended. MUSCULOSKELETAL: No cyanosis, or edema. Attention right groin 15 cm x 12 cm large area of induration and erythema with minimal tenderness at greater saphenous vein harvesting site no fluctuance non-pointing no increased warmth distally extremity is neurovascular tendon intact with 2+ dorsalis pedis pulse and proximally femoral artery pulses 2+ to palpation. BACK: Nontender without obvious deformity. No CVA tenderness. Data Data Last Documented VS Vital Signs Date Time Temp Pulse Resp B/P Pulse Ox O2 Delivery O2 Flow Rate FiO2 11/04/16 23:30 99.4 91 16 162/76 98 Room Air Orders Us Leg Hematoma/Pseudoaneurysm (11/05/16 ) Complete Blood Count With Diff (11/05/16 01:48) Basic Metabolic Panel (Bmp) (11/05/16 01:48) Act Partial Throm Time (Ptt) (11/05/16 01:48) Prothrombin Time / Inr (Pt) (11/05/16 01:48) Lactic Acid (11/05/16 01:48) Blood Culture (11/05/16 01:48) Ct Femur W/O Iv Contrast (11/05/16 ) Ciprofloxacin 400 Mg Premix (Cipro 400 M (11/05/16 02:30) Admit Order (Ed Use Only) (11/05/16 ) ^ Saline Lock (11/05/16 03:31) Resp Oxygen Cristiano C Titrat 1-4 L (11/05/16 ) Notify Dr: Other (11/05/16 03:31) Sodium Chloride 0.9% Flush (Ns Flush) (11/05/16 09:00) Sodium Chloride 0.9% Flush (Ns Flush) (11/05/16 03:45) Consult Vascular Surgery (11/05/16 ) Labs Laboratory Tests Test 11/05/16 01:58 White Blood Count 7.8 TH/MM3 Red Blood Count 3.53 MIL/MM3 Hemoglobin 11.1 GM/DL Hematocrit 33.4 % Mean Corpuscular Volume 94.6 FL Mean Corpuscular Hemoglobin 31.4 PG Mean Corpuscular Hemoglobin 33.2 % Concent Red Cell Distribution Width 14.6 % Platelet Count 180 TH/MM3 Mean Platelet Volume 7.2 FL Neutrophils (%) (Auto) 75.8 % Lymphocytes (%) (Auto) 15.3 % Monocytes (%) (Auto) 5.7 % Eosinophils (%) (Auto) 2.6 % Basophils (%) (Auto) 0.6 % Neutrophils # (Auto) 5.9 TH/MM3 Lymphocytes # (Auto) 1.2 TH/MM3 Monocytes # (Auto) 0.4 TH/MM3 Eosinophils # (Auto) 0.2 TH/MM3 Basophils # (Auto) 0.0 TH/MM3 CBC Comment DIFF FINAL Differential Comment Prothrombin Time 10.2 SEC Prothromb Time International 0.9 RATIO Ratio Activated Partial 24.7 SEC Thromboplast Time Sodium Level 135 MEQ/L Potassium Level 4.5 MEQ/L Chloride Level 96 MEQ/L Carbon Dioxide Level 30.8 MEQ/L Anion Gap 8 MEQ/L Blood Urea Nitrogen 26 MG/DL Creatinine 6.30 MG/DL Estimat Glomerular Filtration 9 ML/MIN Rate Random Glucose 176 MG/DL Lactic Acid Level 1.2 mmol/L Calcium Level 9.5 MG/DL MDM Medical Decision Making Medical Screen Exam Complete: Yes Emergency Medical Condition: Yes Medical Record Reviewed: Yes Interpretation(s) Last Impressions Lower Extremity Ultrasound 11/05/16 0000 Signed Impressions: Service Date/Time: Saturday, November 05, 2016 02:42 - CONCLUSION: Large fluid collection within the subcutaneous fat. There is no evidence of a pseudoaneurysm Juvenal Brooks MD Lower Extremity CT 11/05/16 0000 Signed Impressions: Service Date/Time: Saturday, November 05, 2016 02:06 - CONCLUSION: Large mass within the subcutaneous fat anteromedially in the right upper leg. No intramuscular involvement is noted. Juvenal Brooks MD CBC & BMP Diagram 11/05/16 01:58 Vital Signs Date Time Temp Pulse Resp B/P Pulse Ox O2 Delivery O2 Flow Rate FiO2 11/04/16 23:30 99.4 91 16 162/76 98 Room Air Differential Diagnosis Cellulitis, abscess, hematoma, seroma Narrative Course IV access obtained specimens collected and sent for resulting patient's case discussed with on-call vascular surgeon Dr. Zapata who recommended patient be admitted to medicine service with consult to him in the a.m. as he is covering for patient's surgeon Dr. Rock discussed antibiotic recommends Cipro Patient aware of plan for admission Ultrasound of the soft tissue of the right groin ordered and CT femur noncontrast ordered at recommendation of vascular surgeon as patient dialysis patient and contrast deferred Patient resting comfortably ultrasound shows fluid collection nonspecific seroma versus hematoma versus other fluid collection; CT shows soft tissue swelling Physician Communication Physician Communication discussed with Dr Zapata --CT thigh w/o contrast admit to medicine with AM Vasc consult; discussed with Dr Stapleton for admission Diagnosis Primary Impression: Mass of right thigh Additional Impressions: Cellulitis Qualified Code: L03.115 - Cellulitis of right lower extremity ESRD (end stage renal disease) on dialysis Type 1 diabetes mellitus Admitting Information Admitting Physician Requests: Admit Bianca Jiménez MD Nov 05, 2016 02:44
--- NOTE | 2016-11-05 03:10 | RADRPT ---
EXAM DATE/TIME: 11/05/2016 02:42 [facility] COMPARISON: No previous studies available for comparison. INDICATIONS : Right groin swelling post surgery. MEDICAL HISTORY : Deep venous thrombosis. Hypertension. Renal failure, chronic. Migraines.Hyperlipidemia. . Ab ortion. Dialysis. Diabetes. Depression. Blood transfusion. SURGICAL HISTORY : section. Tenkoff catheter. Vascath. Left AV shunt. ENCOUNTER: Initial ACUITY: 2 weeks PAIN SCORE: 6/10 LOCATION: Right leg. AREA EVALUATED: Right groin. FINDINGS: Large hypoechoic collection without any visible flow measuring at least 6.6 x 7.3 cm CONCLUSION: Large fluid collection within the subcutaneous fat. There is no evidence of a pseudoaneurysm Juvenal Brooks MD on November 05, 2016 at 3:08 Board Certified Radiologist. This report was verified electronically.
[2016-11-05] MEDS ORDERED: SODIUM CHLORIDE 0.9% FLUSH 10 ML FLUSH IVF PRN (03:45)
[2016-11-05] MEDS ORDERED: ONDANSETRON HCL 4 MG/2 ML VIAL IVP PRN (04:00)
[2016-11-05] MEDS ORDERED: LACTULOSE SYRUP 20 GM/30 ML CUP PO PRN (04:00)
[2016-11-05] MEDS ORDERED: DEXTROSE 50% IN WATER 50 ML VIAL(D50) IV PRN (04:00)
[2016-11-05] MEDS ORDERED: MORPHINE SULFATE 4 MG/ML INJ IV PRN (04:00)
[2016-11-05] MEDS ORDERED: GLUCAGON 1 MG/ML VIAL OTHER PRN (04:00)
[2016-11-05] MEDS ORDERED: SODIUM CHLORIDE 0.9% FLUSH 10 ML FLUSH IV FLUSH PRN (04:00)
[2016-11-05] MEDS ORDERED: ACETAMINOPHEN 325 MG TAB PO PRN (04:00)
[2016-11-05] MEDS ORDERED: SENNOSIDES 8.6 MG TAB PO PRN (04:00)
[2016-11-05] MEDS ORDERED: MAGNESIUM HYDROXIDE SUSP 30 ML CUP PO PRN (04:00)
[2016-11-05] MEDS ORDERED: BISACODYL 10 MG SUPP RECTAL PRN (04:00)
--- NOTE | 2016-11-05 04:48 | HHI.HP ---
[facility] No Primary Care Physician Admission Diagnosis R groin mass/hematoma; type 1 DM; ESRD Diagnoses: (1) Right groin mass Diagnosis: Principal (2) ESRD (end stage renal disease) on dialysis Diagnosis: Principal (3) HTN (hypertension) Diagnosis: Principal (4) DM (diabetes mellitus) Diagnosis: Principal Travel History International Travel<30 Days: No Contact w/Intl Traveler <30 Da: No Traveled to Known Affected Are: No History of Present Illness This is a 35-year-old female with a PMH of HTN, Depression, DM and ESRD on HD M/ / who presented to the ER w/ complaints of right grown redness and swelling x2 wks. States symptoms started approx 2wks ago after but have been getting progressively worse, now area much larger. No significant pain complaints. Denies fever, chills. Recent Left Brachial Arteriogram w/ Right Greater Saphenous Vein [place] on 10/18/[address] Rock, notes progressive swelling to right groin since that time. On arrival, BP 162/76, HR 91, O2 sat 98% on RA, Temp 99.4. WBC normal, elevated neutrophil count 75. Chemistry essentially baseline. Lactic Acid 1.2. INR 0.9. Lower Extremity US with large fluid collection in subcutaneous fat, no evidence of pseudoaneurysm. CT Lower Extremity with large mass in subcutaneous fat. Dr. Zapata consulted by ER physician, recommended IV Cipro and will evaluate in am. Review of Systems Except as stated in HPI: all other systems reviewed are Neg ROS: 14 point review of systems otherwise negative. Past Family Social History Past Medical History PMH: HTN, Depression, DM and ESRD on HD M/W/ Past Surgical History PAST SURGICAL HISTORY: , LUE AV Fistula Allergies: Coded Allergies: Penicillin (Verified Allergy, Severe, HIVES,RASH, 11/05/16) Family History PAST FAMILY HISTORY: Reviewed. No h/o DM or CAD Social History PAST SOCIAL HISTORY: Occasional alcohol. Negative for tobacco or drugs. Physical Exam Vital Signs Vital Signs Date Time Temp Pulse Resp B/P Pulse Ox O2 Delivery O2 Flow Rate FiO2 11/04/16 23:30 99.4 91 16 162/76 98 Room Air Physical Exam PE: GENERAL: Middle-aged female in no acute distress. HEENT: PERRLA, EOMI. No scleral icterus or conjunctival pallor. No lid lag or facial droop. CARDIOVASCULAR: Regular rate and rhythm. No obvious murmurs to auscultation. No chest tenderness to palpation. RESPIRATORY: No obvious rhonchi or wheezing. Clear to auscultation. Breath sounds equal bilaterally. GASTROINTESTINAL: Abdomen soft, non-tender, nondistended. BS normal. MUSCULOSKELETAL: Extremities without clubbing, cyanosis, or edema. No obvious deformities. Right groin w/ large area of induration, non-fluctuance, mild erythema, no purulent drainage noted. NEUROLOGICAL: Awake, alert and oriented x4. No focal neurologic deficits. Moving both upper and lower extremities spontaneously. Laboratory Laboratory Tests Test 11/05/16 01:58 White Blood Count 7.8 Red Blood Count 3.53 Hemoglobin 11.1 Hematocrit 33.4 Mean Corpuscular Volume 94.6 Mean Corpuscular Hemoglobin 31.4 Mean Corpuscular Hemoglobin 33.2 Concent Red Cell Distribution Width 14.6 Platelet Count 180 Mean Platelet Volume 7.2 Neutrophils (%) (Auto) 75.8 Lymphocytes (%) (Auto) 15.3 Monocytes (%) (Auto) 5.7 Eosinophils (%) (Auto) 2.6 Basophils (%) (Auto) 0.6 Neutrophils # (Auto) 5.9 Lymphocytes # (Auto) 1.2 Monocytes # (Auto) 0.4 Eosinophils # (Auto) 0.2 Basophils # (Auto) 0.0 CBC Comment DIFF FINAL Differential Comment Prothrombin Time 10.2 Prothromb Time International 0.9 Ratio Activated Partial 24.7 Thromboplast Time Sodium Level 135 Potassium Level 4.5 Chloride Level 96 Carbon Dioxide Level 30.8 Anion Gap 8 Blood Urea Nitrogen 26 Creatinine 6.30 Estimat Glomerular Filtration 9 Rate Random Glucose 176 Lactic Acid Level 1.2 Calcium Level 9.5 Date/Time Procedure Status Source Growth 11/05/16 01:58 Aerobic Blood Culture Received Blood Peripheral Pending 11/05/16 01:58 Anaerobic Blood Culture Received Blood Peripheral Pending Result Diagram: 11/05/16 0158 11/05/168 Assessment and Plan Problem List: (1) Right groin mass ICD Code: R19.09 Status: Acute (2) ESRD (end stage renal disease) on dialysis ICD Code: N18.6 Status: Acute (3) HTN (hypertension) ICD Code: I10 Status: Acute (4) DM (diabetes mellitus) ICD Code: E11.9 Status: Acute Assessment and Plan A/P: 1. Right Groin Mass: s/p surgical intervention 10/18/[address] Rock for AV Fistula revision, now w/ progressive pain/swelling to right groin. LE Ultrasound w/ large fluid collection subcutaneous fat, no evidence of pseudoaneurysm. CT Lower Extremity with large mass subcutaneous fat, images reviewed by me. Afebrile. WBC normal. Dr. Zapata consulted by ER physician , recommended Cipro IV and will eval in am. Continue w/ IV Abx. Analgesics/ antiemetics as needed. 2. ESRD on HD: M/W/F. Follows w/ Dr. Doe as outpatient, will consult to resume HD as scheduled. 3. HTN: BP 160's on arrival, resume home medications, monitor BP. 4. DM: Sliding scale w/ Accu-Cheks. Resume home Insulin. 5. DVT Prophylaxis: Mechanical contraindication secondary to groin mass, Pharmacologic contraindication in light of possible hematoma or surgical intervention 6. Social work for d/c planning as needed. 7. Case discussed w/ ER physician at length. Chana Stapleton MD Nov 05, 2016 04:48
[2016-11-05] MEDS: INSULIN HUMAN NPH 1,000 UNITS/10 ML VIAL SQ SCH ×2 (07:41→17:44)
[2016-11-05] MEDS: INSULIN ASPART SUPPLEMENTAL SCALE SQ SCH ×4 (07:41→22:57)
[2016-11-05] MEDS ORDERED: SODIUM CHLORIDE 0.9% FLUSH 10 ML FLUSH IV FLUSH SCH (09:00)
[2016-11-05] MEDS ORDERED: cloNIDine HCL 0.2 MG TAB PO SCH (09:00)
[2016-11-05] MEDS: DOCUSATE SODIUM 50 MG/SENNA 8.6 MG TAB PO SCH ×2 (09:00→22:42)
[2016-11-05] MEDS: SODIUM CHLORIDE 0.9% FLUSH 10 ML FLUSH IV FLUSH SCH ×2 (10:01→22:57)
[2016-11-05] MEDS: ARIPiprazole 2 MG TAB PO SCH (10:01)
[2016-11-05] MEDS: FUROSEMIDE 40 MG TAB PO SCH ×2 (10:02→22:43)
[2016-11-05] MEDS: SERTRALINE HCL 100 MG TAB PO SCH (10:02)
[2016-11-05] MEDS ORDERED: PROPOFOL 200 MG/20 ML AMP IV ONE (12:00)
[2016-11-05] MEDS ORDERED: ONDANSETRON HCL 4 MG/2 ML VIAL IV PUSH ONE (12:00)
[2016-11-05] MEDS ORDERED: fentaNYL CITRATE 250 MCG/5 ML AMP ONE (13:09)
[2016-11-05] MEDS ORDERED: *morphine SULFATE 8 MG/ML PERIprocedure ONLY ONE (13:28)
[2016-11-05] MEDS ORDERED: DO NOT ADM ANY ANTICOAGULANT DRUGS PRN (13:45)
[2016-11-05] MEDS: CALCIUM ACETATE 667 MG CAP PO SCH (15:42)
--- NOTE | 2016-11-05 16:45 | MP ---
cc: SHIVA BARNES MD DATE OF SURGERY: 11/04/2016. PREOPERATIVE DIAGNOSIS: 1. A large collection of the right groin. 2. Chronic renal failure. POSTOPERATIVE DIAGNOSIS: 1. Lymphatic leak/lymphatic collection of the right groin. 2. Chronic renal failure. OPERATIVE PROCEDURE PERFORMED: Incision and drainage of the collection and placement of a drain. SURGEON: Shiva Barnes M.D. ANESTHESIA: General. ESTIMATED BLOOD LOSS: 10 cc. DESCRIPTION OF THE PROCEDURE IN DETAIL: The patient was prepped and draped in the usual sterile fashion and then incision was made in the most inferior portion and the most dependent portion of the collection. Clear fluid came out followed by some blood and some old clots. The area was irrigated with copious amounts of saline and then a counter-opening was made superiorly. A 1/2 inch [place] drain was inserted and sutured in place. Dressing applied. The patient tolerated the procedure well. It should be noted that lymphatic drainage like this will persist for a while and finally it will subside. The drainage tube should remain in place for the duration. Shiva BERG/VANESSA /3:23 PM /4:26 PM
[2016-11-05] MEDS: ACETAMINOPHEN/HYDROcodone 325 MG/10 MG TAB PO PRN ×2 (18:23→22:56)
[2016-11-05] MEDS: cloNIDine HCL 0.1 MG TAB PO SCH (22:42)
[2016-11-05] MEDS: GENTAMICIN SULFATE 0.1% CREAM 15 GM TOPICAL SCH (23:27)
[2016-11-06 00:50] VITALS: BP 107/53; PULSE 70; RESP 18; TEMP 97.8; O2SAT 100
[2016-11-06] MEDS: CIPROFLOXACIN 400 MG PREMIX 200 ML IV SCH (03:15)
[2016-11-06] MEDS: ACETAMINOPHEN/HYDROcodone 325 MG/10 MG TAB PO PRN ×4 (03:35→22:45)
[2016-11-06 03:47] VITALS: BP 131/69; PULSE 73; RESP 17; TEMP 98.9; O2SAT 98
[2016-11-06] MEDS: INSULIN ASPART SUPPLEMENTAL SCALE SQ SCH ×4 (06:47→22:44)
[2016-11-06] MEDS: INSULIN HUMAN NPH 1,000 UNITS/10 ML VIAL SQ SCH ×2 (06:47→17:07)
[2016-11-06 07:23] VITALS: BP 122/59; PULSE 68; RESP 18; TEMP 97.8; O2SAT 97
[2016-11-06 07:53] LABS: AUTOMATED NEUTROPHIL # 7.2 TH/MM3 (1.8-7.7); BASOPHIL % 0.5 % (0.0-2.0); EOSINOPHIL # 0.2 TH/MM3 (0-0.4); EOSINOPHIL % 2.6 % (0.0-4.0); HEMATOCRIT 30.6 % (35.0-46.0); HEMO FLAGS DIFF FINAL; LYMPH % 9.8 % (9.0-44.0); LYMPHOCYTE # 0.9 TH/MM3 (1.0-4.8); MEAN CELL VOLUME 94.2 FL (80.0-100.0); NEUT % 81.1 % (16.0-70.0); PLATELET COUNT 163 TH/MM3 (150-450); RED BLOOD COUNT 3.25 MIL/MM3 (4.00-5.30); WHITE BLOOD COUNT 8.9 TH/MM3 (4.0-11.0)
[2016-11-06] MEDS: SODIUM CHLORIDE 0.9% FLUSH 10 ML FLUSH IV FLUSH SCH ×2 (08:13→22:46)
[2016-11-06] MEDS: DOCUSATE SODIUM 50 MG/SENNA 8.6 MG TAB PO SCH ×2 (08:14→22:45)
[2016-11-06] MEDS: CALCIUM ACETATE 667 MG CAP PO SCH (08:15)
[2016-11-06] MEDS: ARIPiprazole 2 MG TAB PO SCH (08:15)
[2016-11-06] MEDS: cloNIDine HCL 0.1 MG TAB PO SCH ×2 (08:15→22:45)
[2016-11-06] MEDS: GENTAMICIN SULFATE 0.1% CREAM 15 GM TOPICAL SCH ×2 (08:16→22:45)
[2016-11-06] MEDS: SERTRALINE HCL 100 MG TAB PO SCH (08:16)
[2016-11-06] MEDS: FUROSEMIDE 40 MG TAB PO SCH (08:16)
[2016-11-06 08:32] LABS: ALKALINE PHOSPHATASE 157 U/L (45-117); ALT (GPT) 16 U/L (10-53); ANION GAP 10 MEQ/L (5-15); AST (GOT) 16 U/L (15-37); BICARBONATE 26.8 MEQ/L (21.0-32.0); BLOOD UREA NITROGEN 49 MG/DL (7-18); CHLORIDE 94 MEQ/L (98-107); GLOMERULAR FILTRATION RATE 6 ML/MIN (>89); POTASSIUM 4.4 MEQ/L (3.5-5.1); SODIUM (NA) 131 MEQ/L (136-145); TOTAL BILIRUBIN ADULT 0.3 MG/DL (0.2-1.0)
--- NOTE | 2016-11-06 09:08 | HHI.PR ---
Subjective Remarks Follow-up for right groin fluid collection, status post drainage. Patient is currently doing well. She complains of some pain in the right groin area. She continues to have drainage. Denies any chest pain, shortness of breath, fever or chills. Objective Vitals Vital Signs Date Time Temp Pulse Resp B/P Pulse Ox O2 Delivery O2 Flow Rate FiO2 11/06/16 07:23 97.8 68 18 122/59 97 11/06/16 06:39 21 11/06/16 03:47 98.9 73 17 131/69 98 11/06/16 00:50 97.8 70 18 107/53 100 11/05/16 21:05 118/63 11/05/16 20:26 97.8 69 18 95/46 99 11/05/16 18:07 56 115/56 11/05/16 14:10 95.8 68 16 116/59 100 11/05/16 13:45 98.5 69 17 115/62 100 Nasal Cannula 2 11/05/16 13:30 71 15 114/63 100 Nasal Cannula 2 11/05/16 13:15 66 15 101/52 100 Nasal Cannula 4 11/05/16 13:04 98.5 63 13 87/49 100 Nasal Cannula 4 11/05/16 09:52 95.8 63 16 112/60 99 I/O 11/05/16 11/05/16 11/05/16 11/06/16 11/06/16 11/06/16 07:00 15:00 23:00 07:00 15:00 23:00 Intake Total 310 ml Output Total 10 ml Balance 300 ml Intake IV Total 10 ml Other 300 ml Output Estimated Blood Loss 10 ml Result Diagram: 11/06/16 0648 11/06/16 0648 Imaging Last Impressions Lower Extremity Ultrasound 11/05/16 0000 Signed Impressions: Service Date/Time: Saturday, November 05, 2016 02:42 - CONCLUSION: Large fluid collection within the subcutaneous fat. There is no evidence of a pseudoaneurysm Juvenal Brooks MD Lower Extremity CT 11/05/16 0000 Signed Impressions: Service Date/Time: Saturday, November 05, 2016 02:06 - CONCLUSION: Large mass within the subcutaneous fat anteromedially in the right upper leg. No intramuscular involvement is noted. Juvenal Brooks MD Objective Remarks GENERAL: Alert, oriented 3, NAD. SKIN: Warm and dry. HEAD: Normocephalic. EYES: No scleral icterus. No injection or drainage. NECK: Supple, trachea midline. No JVD or lymphadenopathy. CARDIOVASCULAR: Regular rate and rhythm without murmurs, gallops, or rubs. Significant bruit noted over AV fistula on the left upper extremity. RESPIRATORY: Breath sounds equal bilaterally. No accessory muscle use. GASTROINTESTINAL: Abdomen soft, non-tender, nondistended. MUSCULOSKELETAL: No cyanosis, or edema. Right groin area large induration noted. Drain in place. BACK: Nontender without obvious deformity. No CVA tenderness. Procedures 11/04/2016 Incision and drainage of the collection and placement of a drain. A/P Problem List: (1) Right groin mass ICD Code: R19.09 Status: Acute (2) ESRD (end stage renal disease) on dialysis ICD Code: N18.6 Status: Acute (3) HTN (hypertension) ICD Code: I10 Status: Acute (4) DM (diabetes mellitus) ICD Code: E11.9 Status: Acute Assessment and Plan This is a 35-year-old female with a PMH of HTN, Depression, DM and ESRD on HD M/ W/F who presented to the ER w/ complaints of right grown redness and swelling x2 wks. Recent Left Brachial Arteriogram w/ Right Greater Saphenous Vein [place] on 10/18/[address] Rock, notes progressive swelling to right groin since that time. On arrival, BP 162/76, HR 91, O2 sat 98% on RA, Temp 99.4. WBC normal, elevated neutrophil count 75. Chemistry essentially baseline. Lactic Acid 1.2. INR 0.9. Lower Extremity US with large fluid collection in subcutaneous fat, no evidence of pseudoaneurysm. CT Lower Extremity with large mass in subcutaneous fat. Dr. Zapata consulted by ER physician, recommended IV Cipro. - Right groin fluid collection - Likely lymphatic. s/p drainage by Dr. Degroot - Continue Cipro 400mg IV Qday. - Tylenol, [place] and morphine when necessary for pain. - ESRD - Nephrology has been consulted. Patient receives MWF dialysis. - s/p surgical intervention 10/18/[address] Rock for AV Fistula revision - Hypertension - currently systolic BP in the 110 range. - Currently on amlodipine 10 mg, Lasix 40 mg twice a day, clonidine 0.1 mg twice a day. - Will decrease Lasix to 20mg BID. - Diabetes mellitus - continue NPH 30 units twice a day, sliding scale insulin. Full code. SCDs. Carolynn Jacobs DO Nov 06, 2016 9:07 am
[2016-11-06 11:19] VITALS: BP 111/66; PULSE 70; RESP 20; TEMP 98.2; O2SAT 96
--- NOTE | 2016-11-06 11:42 | PD.CAR.PN ---
CVT Progress Note Subjective/Hospital Course: 11/06/16 Status post drainage or right groin collection. This definitely did not look infected but rather a lymphatic collection mixed in with several old clots. No purulent material was encountered. Cultures pending Change dressing daily Will keep the [place] drain in place for another few days Nothing further to add to care Patient can ambulate ad wyatt. Objective: Vital Signs Date Time Temp Pulse Resp B/P Pulse Ox O2 Delivery O2 Flow Rate FiO2 11/06/16 11:19 98.2 70 20 111/66 96 11/06/16 07:23 97.8 68 18 122/59 97 11/06/16 06:39 21 11/06/16 03:47 98.9 73 17 131/69 98 11/06/16 00:50 97.8 70 18 107/53 100 11/05/16 21:05 118/63 11/05/16 20:26 97.8 69 18 95/46 99 11/05/16 18:07 56 115/56 11/05/16 14:10 95.8 68 16 116/59 100 11/05/16 13:45 98.5 69 17 115/62 100 Nasal Cannula 2 11/05/16 13:30 71 15 114/63 100 Nasal Cannula 2 11/05/16 13:15 66 15 101/52 100 Nasal Cannula 4 11/05/16 13:04 98.5 63 13 87/49 100 Nasal Cannula 4 Labs: Laboratory Tests Test 11/06/16 06:48 White Blood Count 8.9 TH/MM3 (4.0-11.0) Red Blood Count 3.25 MIL/MM3 (4.00-5.30) Hemoglobin 10.4 GM/DL (11.6-15.3) Hematocrit 30.6 % (35.0-46.0) Mean Corpuscular Volume 94.2 FL (80.0-100.0) Mean Corpuscular Hemoglobin 32.0 PG (27.0-34.0) Mean Corpuscular Hemoglobin 34.0 % Concent (32.0-36.0) Red Cell Distribution Width 14.0 % (11.6-17.2) Platelet Count 163 TH/MM3 (150-450) Mean Platelet Volume 7.7 FL (7.0-11.0) Neutrophils (%) (Auto) 81.1 % (16.0-70.0) Lymphocytes (%) (Auto) 9.8 % (9.0-44.0) Monocytes (%) (Auto) 6.0 % (0.0-8.0) Eosinophils (%) (Auto) 2.6 % (0.0-4.0) Basophils (%) (Auto) 0.5 % (0.0-2.0) Neutrophils # (Auto) 7.2 TH/MM3 (1.8-7.7) Lymphocytes # (Auto) 0.9 TH/MM3 (1.0-4.8) Monocytes # (Auto) 0.5 TH/MM3 (0-0.9) Eosinophils # (Auto) 0.2 TH/MM3 (0-0.4) Basophils # (Auto) 0.0 TH/MM3 (0-0.2) CBC Comment DIFF FINAL Differential Comment Sodium Level 131 MEQ/L (136-145) Potassium Level 4.4 MEQ/L (3.5-5.1) Chloride Level 94 MEQ/L (98-107) Carbon Dioxide Level 26.8 MEQ/L (21.0-32.0) Anion Gap 10 MEQ/L (5-15) Blood Urea Nitrogen 49 MG/DL (7-18) Creatinine 8.62 MG/DL (0.50-1.00) Estimat Glomerular Filtration 6 ML/MIN (>89) Rate Random Glucose 65 MG/DL (74-106) Calcium Level 8.8 MG/DL (8.5-10.1) Total Bilirubin 0.3 MG/DL (0.2-1.0) Aspartate Amino Transf 16 U/L (15-37) (AST/SGOT) Alanine Aminotransferase 16 U/L (10-53) (ALT/SGPT) Alkaline Phosphatase 157 U/L (45-117) Total Protein 7.0 GM/DL (6.4-8.2) Albumin 3.3 GM/DL (3.4-5.0) Result Diagram: 11/06/16 0648 11/06/16 0648 Shiva Zapata MD Nov 06, 2016 11:42
[2016-11-06 15:57] VITALS: BP 119/65; PULSE 67; RESP 21; TEMP 97.5; O2SAT 96
[2016-11-06] MEDS ORDERED: SERT-132 PO (17:06)
[2016-11-06 20:00] VITALS: BP 116/71; PULSE 72; RESP 17; TEMP 98.1; O2SAT 96
[2016-11-06] MEDS: FUROSEMIDE 20 MG TAB PO SCH (22:44)
[2016-11-07] VITALS (8 sets, daily range): BP systolic 117–129; BP diastolic 57–73; PULSE 64–77; RESP 14–18; TEMP 96.6–98.5; O2SAT 95–100
[2016-11-07] MEDS: CIPROFLOXACIN 400 MG PREMIX 200 ML IV SCH (03:37)
[2016-11-07] MEDS: INSULIN HUMAN NPH 1,000 UNITS/10 ML VIAL SQ SCH ×2 (06:16→17:41)
[2016-11-07] MEDS: INSULIN ASPART SUPPLEMENTAL SCALE SQ SCH ×4 (06:17→20:29)
[2016-11-07] MEDS: ACETAMINOPHEN/HYDROcodone 325 MG/10 MG TAB PO PRN ×3 (06:32→21:59)
[2016-11-07] MEDS: CALCIUM ACETATE 667 MG CAP PO SCH ×3 (08:05→17:45)
[2016-11-07] MEDS: FUROSEMIDE 20 MG TAB PO SCH (08:31)
[2016-11-07] MEDS: DOCUSATE SODIUM 50 MG/SENNA 8.6 MG TAB PO SCH ×2 (08:31→20:21)
[2016-11-07] MEDS: SERTRALINE HCL 100 MG TAB PO SCH (08:31)
[2016-11-07] MEDS: cloNIDine HCL 0.1 MG TAB PO SCH ×2 (08:32→20:21)
[2016-11-07] MEDS: GENTAMICIN SULFATE 0.1% CREAM 15 GM TOPICAL SCH ×2 (08:32→20:22)
[2016-11-07] MEDS: SODIUM CHLORIDE 0.9% FLUSH 10 ML FLUSH IV FLUSH SCH ×2 (08:33→20:21)
[2016-11-07] MEDS ORDERED: SODIUM CHLOR 0.9% 1000 ML INJ 1,000 ML IV PRN ×3 (10:37)
[2016-11-07] MEDS ORDERED: ONDANSETRON HCL 4 MG/2 ML VIAL IV PRN (10:45)
[2016-11-07] MEDS ORDERED: GENTAMICIN SULFATE (DIALYSIS USE ONLY) 20 MG/2 ML VIAL IV PRN (10:45)
[2016-11-07] MEDS ORDERED: NITROGLYCERIN 0.4 MG SL 25 TABS/BTL SL PRN (10:45)
[2016-11-07] MEDS ORDERED: diphenhydrAMINE HCL 25 MG CAP PO PRN (10:45)
[2016-11-07] MEDS ORDERED: MANNITOL 12.5 GM/50 ML VIAL IV PRN (10:45)
[2016-11-07] MEDS ORDERED: SODIUM CHLORIDE 0.9% FLUSH 10 ML FLUSH IV FLUSH PRN (10:45)
[2016-11-07] MEDS ORDERED: cloNIDine HCL 0.1 MG TAB PO PRN (10:45)
[2016-11-07] MEDS ORDERED: GELATIN 12 MM/7 MM FOAM TOP PRN (10:45)
[2016-11-07] MEDS ORDERED: ACETAMINOPHEN 325 MG TAB PO PRN (10:45)
[2016-11-07] MEDS ORDERED: ALBUMIN HUMAN 25% 25 GM/100 ML BAGP IV PRN (10:45)
--- NOTE | 2016-11-07 11:23 | PQ ---
Physician Query Response Document PATIENT: ALISE LAGUNA : 1980 ADMIT DATE: 11/06/2016 10:32 AM DISCH DATE: RESPONDING PROVIDER #: mic QUERY TEXT: Cause and Effect Relationship Please clarify in documentation the relationship, if any, between RT GROIN MASS and S/P SURGICAL INTE RVENTION 10/18/16 Such as: -- Conditions are due to or associated -- Postoperative complication -- Unrelated to each other -- Other, please specify The patient's Clinical Indicators include: 11/05/16 Admission Diagnosis R groin mass/hematoma; type 1 DM; ESRD PER HPI: Recent Left Brachial Arteriogram w/ Right Greater Saphenous Vein [place] on 10/18/[address] Mike haley, notes progressive swelling to right groin since that time. PER ASSESSMENT AND PLAN: Right Groin Mass: s/p surgical intervention 10/18/[address] Rock for AV Fistula revision, now w/ progressive pain/swelling to right groin. Query created by: Nancy Morrison on 11/07/2016 9:35 AM RESPONSE TEXT: Right groin mass, likely post operative complications related to AV fistula revision. Electronically signed by: Jordi Jacobs DO 11/07/2016 11:20 AM
--- NOTE | 2016-11-07 11:34 | PQ ---
Physician Query Response Document PATIENT: ALISE LAGUNA : 1980 ADMIT DATE: 11/06/2016 10:32 AM DISCH DATE: RESPONDING PROVIDER #: mic QUERY TEXT: Documentation Clarification Your help is requested in clarifying the following clinical documentation - RIGHT GROIN MASS. Can you please further specify in the medical record and discharge summary if this represents: -- Abscess --Hematoma --Seroma -- Other The patient's Clinical Indicators include: 11/05/16 Admission Diagnosis R groin mass/hematoma; type 1 DM; ESRD PER OPERATIVE REPORT - POSTOPERATIVE DIAGNOSIS: Lymphatic leak/ lymphatic collection of the right cindi in Query created by: Nancy Morrison on 11/07/2016 9:59 AM RESPONSE TEXT: Right groin mass - likely a lymphatic fluid collection per Vascular surgeon Dr. Webster. Electronically signed by: Jordi Jacobs DO 11/07/2016 11:30 AM
[2016-11-07] MEDS: ARIPiprazole 2 MG TAB PO SCH (12:00)
--- NOTE | 2016-11-07 12:04 | PD.CONS ---
HPI Consult Requested By Reason for Consult End-stage renal disease Primary Care Physician No Primary Care Physician History of Present Illness This patient is a 35-year-old female with a history of end-stage renal disease secondary to diabetic nephropathy on dialysis Monday. Patient status post recent harvesting of right greater saphenous vein for management of a steal syndrome involving her left hand related to AV dialysis fistula. Patient presented to this institution with increasing swelling and discomfort involving her right groin. Now status post surgical IND November 04, 2016 for right gr lymphatic leak. Drain currently in place. Drain is still draining significantly. Otherwise patient had no verbal complaints. Review of Systems Constitutional: DENIES: Diaphoretic episodes, Fatigue, Fever, Weight gain, Weight loss, Chills, Dizziness, Change in appetite, Night Sweats Cardiovascular: DENIES: Chest pain, Palpitations, Syncope, Dyspnea on Exertion , PND, Lower Extremity Edema, Orthopnea, Claudication Gastrointestinal: DENIES: Abdominal pain, Black stools, Bloody stools, Constipation, Diarrhea, Nausea, Vomiting, Difficulty Swallowing, Anorexia Musculoskeletal: DENIES: Joint pain, Muscle aches, Stiffness, Joint Swelling, Back pain, Neck pain Past Family Social History Allergies: Coded Allergies: Penicillin (Verified Allergy, Severe, HIVES,RASH, 11/05/16) Past Medical History End-stage renal disease Diabetes mellitus Hypertension Anemia of renal disease Secondary hyperparathyroidism of renal disease. Past Surgical History Creation of a left AV dialysis fistula which unfortunately was associated with steal syndrome now improved post surgical revision. Harvesting right greater saphenous vein for above-mentioned procedure. Reported Medications Reported Meds & Active Scripts Active Gentamicin Topical 0.1% Cream 1 Applic TOPICAL BID Apply to affected area(s) Lortab (Hydrocodone-Acetaminophen) 10-325 Mg Tab 1 Tab PO BID PRN Reported Sertraline (Sertraline HCl) 50 Mg Tab 50 Mg PO DAILY Calcium Acetate (Phosphate Binder) 667 Mg Cap 1,334 Mg PO TID Abilify (Aripiprazole) 2 Mg Tab 2 Mg PO DAILY Furosemide 40 Mg Tab 40 Mg PO BID Amlodipine (Amlodipine Besylate) 10 Mg Tab 10 Mg PO DAILY Clonidine (Clonidine HCl) 0.2 Mg Tab 0.2 Mg PO DAILY Novolin R Inj (Insulin Human Regular) 1,000 Unit/10 Ml Vial 0 SQ DIRECTED Sliding Scale As Directed. Novolin N Inj (Insulin Human NPH) 1,000 Unit/10 Ml Vial 30 Units SQ BIDAC Active Ordered Medications Current Medications Ciprofloxacin/ Dextrose (Cipro 400 Mg Premix) 200 ml @ 200 mls/hr ONCE ONCE IV Last administered on 11/05/16 03:07; Start 11/05/16 at 02:30; Stop at 03:29; Status DC Sodium Chloride (NS Flush) 2 ml BID IV FLUSH ; Start 11/05/16 at 09:00; Stop at 09:00; Status DC Sodium Chloride 2 ml 2 ml UNSCH PRN IVF FLUSH AFTER USING IV ACCESS; Start at 03:45; Stop 11/05/16 at 04:00; Status DC Ciprofloxacin/ Dextrose (Cipro 400 Mg Premix) 200 ml @ 200 mls/hr DAILY@03 IV Last administered on 11/07/16 03:37; Start 11/06/16 at 03:00 Dextrose (D50w (Vial) Inj) 50 ml UNSCH PRN IV HYPOGLYCEMIA-SEE COMMENTS; Start 11/05/16 at 04:00 Glucagon (Glucagon Inj) 1 mg UNSCH PRN OTHER HYPOGLYCEMIA-SEE COMMENTS; Start 11/05/16 at 04:00 Insulin Aspart (NovoLOG SUPPLEMENTAL SCALE) 1 ACHS SLIDING SCALE SQ Last administered on 11/06/16 22:44; Start 11/05/16 at 07:00 Sodium Chloride (NS Flush) 2 ml UNSCH PRN IV FLUSH FLUSH AFTER USING IV ACCESS ; Start 11/05/16 at 04:00 Sodium Chloride (NS Flush) 2 ml BID IV FLUSH Last administered on 11/07/16 08: 33; Start 11/05/16 at 09:00 Ondansetron HCl (Zofran Inj) 4 mg Q6H PRN IVP NAUSEA OR VOMITING; Start at 04:00 Acetaminophen (Tylenol) 650 mg Q6H PRN PO FEVER/PAIN SCALE 1 TO 2; Start at 04:00 Acetaminophen/ Hydrocodone Bitart ([place] 10-325 Mg) 1 tab Q4H PRN PO PAIN 3-5 Last administered on 11/07/16 06:32; Start 11/05/16 at 04:00 Morphine Sulfate (Morphine Inj) 2 mg Q3H PRN IV Pain 6-10; Start 11/05/16 at 04 :00 Senna/Docusate Sodium (Molly-Colace) 1 tab BID PO Last administered on 08:31; Start 11/05/16 at 09:00 Magnesium Hydroxide (Milk Of Magnesia Liq) 30 ml Q12H PRN PO MILD - MODERATE CONSTIPATION; Start 11/05/16 at 04:00 Sennosides (Senokot) 17.2 mg Q12H PRN PO MODERATE - SEVERE CONSTIPATION; Start 11/05/16 at 04:00 Bisacodyl (Dulcolax Supp) 10 mg DAILY PRN RECTAL SEVERE CONSITIPATION; Start at 04:00 Lactulose (Lactulose Liq) 30 ml DAILY PRN PO SEVERE CONSITIPATION; Start at 04:00 Amlodipine Besylate (Norvasc) 20 mg DAILY PO ; Start 11/05/16 at 09:00; Stop at 17:42; Status DC Aripiprazole (Abilify) 2 mg DAILY PO Last administered on 11/06/16 08:15; Start 11/05/16 at 09:00 Calcium Acetate (Phoslo) 1,334 mg DAILY PO Last administered on 11/07/16 08:05 ; Start 11/05/16 at 09:00; Stop 11/07/16 at 11:41; Status DC Clonidine (Catapres) 0.2 mg BID PO ; Start 11/05/16 at 09:00; Stop 11/05/16 at 17:42; Status DC Furosemide (Lasix) 40 mg BID PO Last administered on 11/06/16 08:16; Start at 09:00; Stop 11/06/16 at 13:12; Status DC Insulin Human NPH (NovoLIN N INJ) 30 units BIDAC SQ Last administered on 17:07; Start 11/05/16 at 07:00 Sertraline HCl (Zoloft) 100 mg DAILY PO Last administered on 11/07/16 08:31; Start 11/05/16 at 09:00 Fentanyl Citrate (fentaNYL INJ) 250 mcg [facility] ONCE .ROUTE ; Start 11/05/16 at 13:09; Stop 11/05/16 at 13:10; Status DC Morphine Sulfate (*morphine INJ PERIprocedure ONLY) 8 mg STK-MED ONCE .ROUTE Last administered on 11/05/16 13:29; Start 11/05/16 at 13:28; Stop 11/05/16 at 13:29; Status DC Miscellaneous Information ALL NURSING DEPARTME... UNSCH PRN .XX SEE LABEL COMMENTS; Start 11/05/16 at 13:45; Stop 11/06/16 at 13:44; Status DC Amlodipine Besylate (Norvasc) 10 mg DAILY PO Last administered on 11/07/16 08: 31; Start 11/06/16 at 09:00 Clonidine (Catapres) 0.1 mg BID PO Last administered on 11/07/16 08:32; Start 11/05/16 at 21:00 Gentamicin Sulfate (Gentamicin 0.1% Cream) 1 applic BID TOPICAL Last administered on 11/07/16 08:32; Start 11/05/16 at 21:00 Furosemide 20 mg 20 mg BID PO Last administered on 11/07/16 08:31; Start 11/06 at 21:00; Stop 11/07/16 at 11:42; Status DC Sodium Chloride 1,000 ml @ 0 mls/hr Q0M PRN IV For Prime & Rinse Back; Start at 10:37 Sodium Chloride 1,000 ml @ 200 mls/hr Q5H PRN IV WITH DIALYSIS; Start 11/07/16 at 10:37 Sodium Chloride (NS 1000 ml Inj) 1,000 ml @ 0 mls/hr Q0M PRN IV WITH DIALYSIS; Start 11/07/16 at 10:37 Mannitol (Mannitol Inj) 12.5 gm UNSCH PRN IV WITH DIALYSIS; Start 11/07/16 at 10:45 Albumin Human (Albumin 25% Inj) 25 gm UNSCH PRN IV WITH DIALYSIS; Start at 10:45 Sodium Chloride (NS Flush) 5 ml UNSCH PRN IV FLUSH WITH DIALYSIS; Start at 10:45 Gentamicin Sulfate (Gentamicin (Dialysis) Inj) 20 mg UNSCH PRN IV WITH DIALYSIS ; Start 11/07/16 at 10:45 Ondansetron HCl (Zofran Inj) 4 mg UNSCH PRN IV WITH DIALYSIS; Start 11/07/16 at 10:45 Acetaminophen (Tylenol) 650 mg UNSCH PRN PO for headach,T> 101F; Start at 10:45 Diphenhydramine HCl (Benadryl) 25 mg UNSCH PRN PO for hives/itching/anaphylaxis ; Start 11/07/16 at 10:45 Nitroglycerin (Nitrostat Sl) 0.4 mg UNSCH PRN SL CHEST PAIN; Start 11/07/16 at 10:45 Clonidine (Catapres) 0.1 mg UNSCH PRN PO for BP > 180/100 X 2 readings; Start 11/07/16 at 10:45 Gelatin (Gelfoam 12 Mm/7 Mm Top) 1 foam UNSCH PRN TOP SEE LABEL COMMENTS; Start 11/07/16 at 10:45 Calcium Acetate (Phoslo) 1,334 mg TIDPC PO ; Start 11/07/16 at 13:30; Status UNV Furosemide (Lasix) 80 mg DAILY PO ; Start 11/08/16 at 09:00; Status UNV Family History Noncontributory to current complaint. Social History No history of illicit drug use, alcohol abuse or tobacco use. Physical Exam Vital Signs Vital Signs Date Time Temp Pulse Resp B/P Pulse Ox O2 Delivery O2 Flow Rate FiO2 11/07/16 08:23 97 21 11/07/16 08:00 98.0 75 14 119/63 98 11/07/16 04:00 96.6 68 18 118/73 96 11/07/16 00:08 74 11/07/16 00:00 97.9 66 17 117/67 99 11/06/16 23:45 16 11/06/16 20:00 98.1 72 17 116/71 96 11/06/16 15:57 97.5 67 21 119/65 96 Physical Exam GENERAL: Obese female lying in bed not in respiratory distress. SKIN: Warm and dry. HEAD: Normocephalic. EYES: No scleral icterus. No injection or drainage. NECK: Supple, trachea midline. No JVD or lymphadenopathy. CARDIOVASCULAR: Regular rate and rhythm without murmurs, gallops, or rubs. RESPIRATORY: Breath sounds equal bilaterally. No accessory muscle use. GASTROINTESTINAL: Abdomen soft, non-tender, nondistended. MUSCULOSKELETAL: No cyanosis, or edema. Dressing overlying her right groin not disturbed. BACK: Nontender without obvious deformity. No CVA tenderness. Laboratory Date/Time Procedure Status Source Growth 11/05/16 12:51 Gram Stain - Final Resulted Abscess Groin 11/05/16 12:51 Wound Culture - Preliminary Resulted Abscess Groin NO GROWTH IN 48 HOURS. 11/05/16 12:51 Fungal Smear - Final Resulted Abscess Groin NO FUNGAL ELEMENTS SEEN. 11/05/16 12:51 Fungal Culture Resulted Abscess Groin Pending 11/05/16 12:51 Acid Fast Stain Received Abscess Groin Pending 11/05/16 12:51 Mycobacterial Culture Received Abscess Groin Pending 11/05/16 01:58 Aerobic Blood Culture - Preliminary Resulted Blood Peripheral NO GROWTH IN 2 DAYS 11/05/16 01:58 Anaerobic Blood Culture - Preliminary Resulted Blood Peripheral NO GROWTH IN 2 DAYS Result Diagram: 11/06/1648 11/06/1648 Assessment and Plan Problem List: (1) ESRD (end stage renal disease) on dialysis Plan: Hemodialysis per outpatient schedule. Dialysis orders have been entered and the dialysis service contacted. Avoid gadolinium. Medication should be adjusted for the patient's end-stage renal disease when indicated. (2) Hypertension Plan: Blood pressure currently well controlled. Continue to monitor. (3) Anemia in end-stage renal disease Plan: Continue Epogen replacement therapy as indicated. (4) Secondary hyperparathyroidism of renal origin Plan: Check intact PTH level a.m. (5) Diabetes mellitus Plan: Management per primary care physician. Zane Barraza MD Nov 07, 2016 12:04
--- NOTE | 2016-11-07 15:01 | PD.CAR.PN ---
CVT Progress Note Subjective/Hospital Course: 11/06/16 Status post drainage or right groin collection. This definitely did not look infected but rather a lymphatic collection mixed in with several old clots. No purulent material was encountered. Cultures pending Change dressing daily Will keep the [place] drain in place for another few days Nothing further to add to care Patient can ambulate ad wyatt. 11/07/16 Patient doing well The collection has collapsed and Missy drain is draining the remaining fluid Can discharge patient home with [place] drain for about a week and if collection re-accumulates would probably place a small pigtail and it instead for now drainage is serous rather than dense hemorrhagic fluid No sign of infection and drainage is clear lymphatic fluid Objective: Vital Signs Date Time Temp Pulse Resp B/P Pulse Ox O2 Delivery O2 Flow Rate FiO2 11/07/16 12:00 98.0 64 18 129/70 95 11/07/16 08:23 97 21 11/07/16 08:00 98.0 75 14 119/63 98 11/07/16 04:00 96.6 68 18 118/73 96 11/07/16 00:08 74 11/07/16 00:00 97.9 66 17 117/67 99 11/06/16 23:45 16 11/06/16 20:00 98.1 72 17 116/71 96 11/06/16 15:57 97.5 67 21 119/65 96 Result Diagram: 11/06/16 0648 11/06/16 0648 Shiva Zapata MD Nov 07, 2016 15:00
--- NOTE | 2016-11-07 21:09 | HHI.PR ---
Subjective Remarks Follow-up for right groin fluid collection, status post drainage, ESRD. Patient is doing well. No fever, chills. Continues to have some drainage in the right groin area. Objective Vitals Vital Signs Date Time Temp Pulse Resp B/P Pulse Ox O2 Delivery O2 Flow Rate FiO2 11/07/16 20:00 98.3 73 17 120/57 95 11/07/16 17:00 98.5 64 14 123/57 97 11/07/16 12:00 98.0 64 18 129/70 95 11/07/16 08:23 97 21 11/07/16 08:00 98.0 75 14 119/63 98 11/07/16 04:00 96.6 68 18 118/73 96 11/07/16 00:08 74 11/07/16 00:00 97.9 66 17 117/67 99 11/06/16 23:45 16 I/O 11/06/16 11/06/16 11/06/16 11/07/16 11/07/16 11/07/16 07:00 15:00 23:00 07:00 15:00 23:00 Intake Total 480 ml 480 ml 464 ml Output Total 4400 ml Balance 480 ml 480 ml 464 ml -4400 ml Intake Oral 480 ml 480 ml 464 ml Hemodialysis 4400 ml # Voids 1 0 1 # Bowel Movements 0 0 0 Result Diagram: 11/06/1648 11/06/16 0648 Objective Remarks GENERAL: Alert, oriented 3, NAD. SKIN: Warm and dry. HEAD: Normocephalic. EYES: No scleral icterus. No injection or drainage. NECK: Supple, trachea midline. No JVD or lymphadenopathy. CARDIOVASCULAR: Regular rate and rhythm without murmurs, gallops, or rubs. Significant bruit noted over AV fistula on the left upper extremity. RESPIRATORY: Breath sounds equal bilaterally. No accessory muscle use. GASTROINTESTINAL: Abdomen soft, non-tender, nondistended. MUSCULOSKELETAL: No cyanosis, or edema. Right groin Drain in place. BACK: Nontender without obvious deformity. No CVA tenderness. Procedures 11/04/2016 Incision and drainage of the collection and placement of a drain. A/P Problem List: (1) Right groin mass ICD Code: R19.09 Status: Acute (2) ESRD (end stage renal disease) on dialysis ICD Code: N18.6 Status: Acute (3) HTN (hypertension) ICD Code: I10 Status: Acute (4) DM (diabetes mellitus) ICD Code: E11.9 Status: Acute Assessment and Plan This is a 35-year-old female with a PMH of HTN, Depression, DM and ESRD on HD M/ W/F who presented to the ER w/ complaints of right grown redness and swelling x2 wks. Recent Left Brachial Arteriogram w/ Right Greater Saphenous Vein [place] on 10/18/[address] Rock, notes progressive swelling to right groin since that time. On arrival, BP 162/76, HR 91, O2 sat 98% on RA, Temp 99.4. WBC normal, elevated neutrophil count 75. Chemistry essentially baseline. Lactic Acid 1.2. INR 0.9. Lower Extremity US with large fluid collection in subcutaneous fat, no evidence of pseudoaneurysm. CT Lower Extremity with large mass in subcutaneous fat. Dr. Zapata consulted by ER physician, recommended IV Cipro. - Right groin fluid collection - Likely lymphatic. s/p drainage by Dr. Bernstein. - Continue Cipro 400mg IV Qday. - Tylenol, [place] and morphine when necessary for pain. - Will discharge patient on 11/08/2016. - ESRD - Nephrology has been consulted. Patient receives MWF dialysis. - s/p surgical intervention 10/18/[address] Rock for AV Fistula revision - Patient is scheduled for dialysis today per Dr. Barraza's note. - Hypertension - currently systolic BP in the 110 range. - Currently on amlodipine 10 mg, Lasix 40 mg twice a day, clonidine 0.1 mg twice a day. - Will decrease Lasix to 20mg BID. - Diabetes mellitus - continue NPH 30 units twice a day, sliding scale insulin. Full code. SCDs. Carolynn Jacobs DO Nov 07, 2016 21:08
[2016-11-08] VITALS: BP 128/61; PULSE 67; PULSE 69; RESP 17; TEMP 98.4; O2SAT 96
[2016-11-08] MEDS: ACETAMINOPHEN/HYDROcodone 325 MG/10 MG TAB PO PRN ×3 (03:36→12:45)
[2016-11-08] MEDS: CIPROFLOXACIN 400 MG PREMIX 200 ML IV SCH (03:36)
[2016-11-08 04:00] VITALS: BP 122/66; PULSE 63; PULSE 69; RESP 17; TEMP 97.1; O2SAT 98
[2016-11-08] MEDS: INSULIN ASPART SUPPLEMENTAL SCALE SQ SCH ×2 (06:38→12:46)
[2016-11-08 08:00] VITALS: BP 137/76; PULSE 71; RESP 16; TEMP 98.7; O2SAT 100
[2016-11-08 08:31] LABS: BICARBONATE 28.6 MEQ/L (21.0-32.0); POTASSIUM 4.9 MEQ/L (3.5-5.1)
[2016-11-08] MEDS: SERTRALINE HCL 100 MG TAB PO SCH (08:42)
[2016-11-08] MEDS: CALCIUM ACETATE 667 MG CAP PO SCH ×2 (08:42→12:43)
[2016-11-08] MEDS: cloNIDine HCL 0.1 MG TAB PO SCH (08:42)
[2016-11-08] MEDS: ARIPiprazole 2 MG TAB PO SCH (08:42)
[2016-11-08] MEDS: INSULIN HUMAN NPH 1,000 UNITS/10 ML VIAL SQ SCH (08:45)
[2016-11-08] MEDS: DOCUSATE SODIUM 50 MG/SENNA 8.6 MG TAB PO SCH (08:47)
[2016-11-08] MEDS: GENTAMICIN SULFATE 0.1% CREAM 15 GM TOPICAL SCH (08:48)
[2016-11-08] MEDS: SODIUM CHLORIDE 0.9% FLUSH 10 ML FLUSH IV FLUSH SCH (08:48)
[2016-11-08] MEDS ORDERED: FUROSEMIDE 80 MG TAB PO SCH (09:00)
[2016-11-08 12:00] VITALS: BP_SYST 95; BP_SYST 98; BP_DIAS 51; BP_DIAS 52; PULSE 69; RESP 16; TEMP 98; O2SAT 97
--- NOTE | 2016-11-08 12:07 | HHI.NPPN ---
Subjective History of Present Illness This patient is a 35-year-old female with a history of end-stage renal disease secondary to diabetic nephropathy on dialysis Monday. Patient status post recent harvesting of right greater saphenous vein for management of a steal syndrome involving her left hand related to AV dialysis fistula. Patient presented to this institution with increasing swelling and discomfort involving her right groin. Now status post surgical IND November 04, 2016 for right gr lymphatic leak. Drain currently in place. Drain is still draining significantly. Otherwise patient had no verbal complaints. Interval History Pt feeling OK today. No complaints. Objective Data Data 11/07/16 11/08/16 18:59 06:59 Intake Total 464 ml Output Total 4400 ml Balance -3936 ml Intake Oral 464 ml Hemodialysis 4400 ml # Voids 1 1 # Bowel Movements 0 Vital Signs Date Time Temp Pulse Resp B/P Pulse Ox O2 Delivery O2 Flow Rate FiO2 11/08/16 08:00 98.7 71 16 137/76 100 11/08/16 04:00 69 11/08/16 04:00 97.1 63 17 122/66 98 11/08/16 00:00 69 11/08/16 00:00 98.4 67 17 128/61 96 11/07/16 20:00 98.3 73 17 120/57 95 11/07/16 20:00 77 11/07/16 17:00 98.5 64 14 123/57 97 -: 11/06/16 0648 11/08/16 0704 Imaging Last Impressions Lower Extremity Ultrasound 11/05/16 0000 Signed Impressions: Service Date/Time: Saturday, November 05, 2016 02:42 - CONCLUSION: Large fluid collection within the subcutaneous fat. There is no evidence of a pseudoaneurysm Juvenal Brooks MD Lower Extremity CT 11/05/16 0000 Signed Impressions: Service Date/Time: Saturday, November 05, 2016 02:06 - CONCLUSION: Large mass within the subcutaneous fat anteromedially in the right upper leg. No intramuscular involvement is noted. Juvenal Brooks MD Tubes & Lines Comment [place] drain R groin Medication Review Current Medications Medications (Trade) Dose Ordered Sig/Radha Route Start Time Stop Time Status Last Admin (Cipro 400 Mg Premix) 200 ml @ 200 mls/hr DAILY@03 IV 11/06/16 03:00 11/08/16 03:36 (D50w (Vial) Inj) 50 ml UNSCH PRN IV 11/05/16 04:00 (Glucagon Inj) 1 mg UNSCH PRN OTHER 11/05/16 04:00 (NS Flush) 2 ml UNSCH PRN IV FLUSH 11/05/16 04:00 (NS Flush) 2 ml BID IV FLUSH 11/05/16 09:00 11/08/16 08:48 (Zofran Inj) 4 mg Q6H PRN IVP 11/05/16 04:00 (Tylenol) 650 mg Q6H PRN PO 11/05/16 04:00 ([place]bb 10-325 Mg) 1 tab Q4H PRN PO 11/05/16 04:00 11/08/16 08:43 (Morphine Inj) 2 mg Q3H PRN IV 11/05/16 04:00 (Molly-Colace) 1 tab BID PO 11/05/16 09:00 11/07/16 20:21 (Milk Of Magnesia Liq) 30 ml Q12H PRN PO 11/05/16 04:00 (Senokot) 17.2 mg Q12H PRN PO 11/05/16 04:00 (Dulcolax Supp) 10 mg DAILY PRN RECTAL 11/05/16 04:00 (Lactulose Liq) 30 ml DAILY PRN PO 11/05/16 04:00 (Abilify) 2 mg DAILY PO 11/05/16 09:00 11/08/16 08:42 (NovoLIN N INJ) 30 units BIDAC SQ 11/05/16 07:00 11/08/16 08:45 (Zoloft) 100 mg DAILY PO 11/05/16 09:00 11/08/16 08:42 (Norvasc) 10 mg DAILY PO 11/06/16 09:00 11/08/16 08:41 (Catapres) 0.1 mg BID PO 11/05/16 21:00 11/08/16 08:42 Gentamicin Sulfate 1 applic 1 applic BID TOPICAL 11/05/16 21:00 11/08/16 08:48 Sodium Chloride 1,000 ml @ 0 mls/hr Q0M PRN IV 11/07/16 10:37 Sodium Chloride 1,000 ml @ 200 mls/hr Q5H PRN IV 11/07/16 10:37 (NS 1000 ml Inj) 1,000 ml @ 0 mls/hr Q0M PRN IV 11/07/16 10:37 (Mannitol Inj) 12.5 gm UNSCH PRN IV 11/07/16 10:45 (Albumin 25% Inj) 25 gm UNSCH PRN IV 11/07/16 10:45 (NS Flush) 5 ml UNSCH PRN IV FLUSH 11/07/16 10:45 (Gentamicin (Dialysis) Inj) 20 mg UNSCH PRN IV 11/07/16 10:45 (Zofran Inj) 4 mg UNSCH PRN IV 11/07/16 10:45 (Tylenol) 650 mg UNSCH PRN PO 11/07/16 10:45 (Benadryl) 25 mg UNSCH PRN PO 11/07/16 10:45 (Nitrostat Sl) 0.4 mg UNSCH PRN SL 11/07/16 10:45 (Catapres) 0.1 mg UNSCH PRN PO 11/07/16 10:45 (Gelfoam 12 Mm/7 Mm Top) 1 foam UNSCH PRN TOP 11/07/16 10:45 (Phoslo) 1,334 mg TIDPC PO 11/07/16 13:30 11/08/16 08:42 (Lasix) 80 mg DAILY PO 11/08/16 09:00 11/08/16 08:42 Physical Exam General Appearance: Well Developed, Well Nourished, No Acute Distress Neck Neck Exam: Trachea Midline Pulmonary Resp Exam: Clear Bilaterally, Breath Sounds Equal Cardiology CV Exam: Regular, Normal Sinus Rhythm Gastrointestinal/Abdomen GI Exam: Soft, Non-Tender Extremeties Extremities Exam: Trace Edema Extremeties Remarks BLE & facial Neurologic Neuro Exam: Alert, Awake, Oriented Psychiatric Psych Exam: Appropriate Responses Assessment/Plan Problem List: (1) ESRD (end stage renal disease) on dialysis Plan: Continue HD MWF Avoid gadolinium. Medication should be adjusted for the patient's end-stage renal disease when indicated. Pt ok to be discharged from renal standpoint. If D/C not until Monday, she needs to have HD in house before discharge. (2) Hypertension Plan: Blood pressure currently well controlled. Continue to monitor. (3) Anemia in end-stage renal disease Plan: Continue Epogen replacement therapy as indicated. (4) Diabetes mellitus Plan: Management per primary care physician. (5) Right groin mass Plan: Surgical notes reviewed. Drain in place Anu Sexton Nov 08, 2016 12:07
--- NOTE | 2016-11-08 14:29 | PD.CAR.PN ---
CVT Progress Note Subjective/Hospital Course: 11/06/16 Status post drainage or right groin collection. This definitely did not look infected but rather a lymphatic collection mixed in with several old clots. No purulent material was encountered. Cultures pending Change dressing daily Will keep the [place] drain in place for another few days Nothing further to add to care Patient can ambulate ad wyatt. 11/07/16 Patient doing well The collection has collapsed and Missy drain is draining the remaining fluid Can discharge patient home with [place] drain for about a week and if collection re-accumulates would probably place a small pigtail and it instead for now drainage is serous rather than dense hemorrhagic fluid No sign of infection and drainage is clear lymphatic fluid 11/08/16 Minimal drainage from the Missy drain. Into drainage is very low tomorrow will remove the drain About 50-60% of patients with lymphatic leak have a tendency to reaccumulate and if this occurs then patient will have a percutaneous placement of a small drainage catheter for drainage is now clear rather than thick and sanguinous No signs of infection Patient doing very well at this time Objective: Vital Signs Date Time Temp Pulse Resp B/P Pulse Ox O2 Delivery O2 Flow Rate FiO2 11/08/16 08:00 98.7 71 16 137/76 100 11/08/16 04:00 69 11/08/16 04:00 97.1 63 17 122/66 98 11/08/16 00:00 69 11/08/16 00:00 98.4 67 17 128/61 96 11/07/16 20:00 98.3 73 17 120/57 95 11/07/16 20:00 77 11/07/16 17:00 98.5 64 14 123/57 97 Labs: Laboratory Tests Test 11/08/16 07:04 Sodium Level 133 MEQ/L (136-145) Potassium Level 4.9 MEQ/L (3.5-5.1) Chloride Level 95 MEQ/L (98-107) Carbon Dioxide Level 28.6 MEQ/L (21.0-32.0) Anion Gap 9 MEQ/L (5-15) Blood Urea Nitrogen 50 MG/DL (7-18) Creatinine 8.55 MG/DL (0.50-1.00) Estimat Glomerular Filtration 6 ML/MIN (>89) Rate Random Glucose 167 MG/DL (74-106) Calcium Level 8.6 MG/DL (8.5-10.1) Phosphorus Level 5.4 MG/DL (2.5-4.9) Albumin 3.3 GM/DL (3.4-5.0) Parathyroid Hormone (Intact) 421.4 PG/ML (12.4-76.8) Result Diagram: 11/06/16 0648 11/08/16 0704 Shiva Zapata MD Nov 08, 2016 14:29
--- NOTE | 2016-11-08 14:36 | HHI.DS ---
Discharge Summary Admission Date Nov 06, 2016 at 10:32 am Discharge Date: Nov 08, 2016 Admitting Diagnosis R groin mass/hematoma; type 1 DM; ESRD (1) Right groin mass ICD Code: R19.09 Diagnosis: Principal (2) ESRD (end stage renal disease) on dialysis ICD Code: N18.6 Diagnosis: Principal (3) HTN (hypertension) ICD Code: I10 (4) DM (diabetes mellitus) ICD Code: E11.9 Procedures 11/04/2016 Incision and drainage of the collection and placement of a drain. Brief History - From Admission This is a 35-year-old female with a PMH of HTN, Depression, DM and ESRD on HD M/ W/F who presented to the ER w/ complaints of right grown redness and swelling x2 wks. States symptoms started approx 2wks ago after but have been getting progressively worse, now area much larger. No significant pain complaints. Denies fever, chills. Recent Left Brachial Arteriogram w/ Right Greater Saphenous Vein [place] on 10/18/[address] Rock, notes progressive swelling to right groin since that time. On arrival, BP 162/76, HR 91, O2 sat 98% on RA, Temp 99.4. WBC normal, elevated neutrophil count 75. Chemistry essentially baseline. Lactic Acid 1.2. INR 0.9. Lower Extremity US with large fluid collection in subcutaneous fat, no evidence of pseudoaneurysm. CT Lower Extremity with large mass in subcutaneous fat. Dr. Zapata consulted by ER physician, recommended IV Cipro and will evaluate in am. CBC/BMP: 11/06/16 0648 11/08/16 0704 Significant Findings Laboratory Tests Test 11/06/16 11/08/16 06:48 07:04 Red Blood Count 3.25 MIL/MM3 (4.00-5.30) Hemoglobin 10.4 GM/DL (11.6-15.3) Hematocrit 30.6 % (35.0-46.0) Neutrophils (%) (Auto) 81.1 % (16.0-70.0) Lymphocytes # (Auto) 0.9 TH/MM3 (1.0-4.8) Sodium Level 131 MEQ/L 133 MEQ/L (136-145) (136-145) Chloride Level 94 MEQ/L 95 MEQ/L (98-107) (98-107) Blood Urea Nitrogen 49 MG/DL (7-18) 50 MG/DL (7-18) Creatinine 8.62 MG/DL 8.55 MG/DL (0.50-1.00) (0.50-1.00) Estimat Glomerular Filtration 6 ML/MIN (>89) 6 ML/MIN (>89) Rate Random Glucose 65 MG/DL 167 MG/DL (74-106) (74-106) Alkaline Phosphatase 157 U/L (45-117) Albumin 3.3 GM/DL 3.3 GM/DL (3.4-5.0) (3.4-5.0) Phosphorus Level 5.4 MG/DL (2.5-4.9) Parathyroid Hormone (Intact) 421.4 PG/ML (12.4-76.8) Imaging Last Impressions Lower Extremity Ultrasound 11/05/16 0000 Signed Impressions: Service Date/Time: Saturday, November 05, 2016 02:42 - CONCLUSION: Large fluid collection within the subcutaneous fat. There is no evidence of a pseudoaneurysm Juvenal Brooks MD Lower Extremity CT 11/05/16 0000 Signed Impressions: Service Date/Time: Saturday, November 05, 2016 02:06 - CONCLUSION: Large mass within the subcutaneous fat anteromedially in the right upper leg. No intramuscular involvement is noted. Juvenal Brooks MD PE at Discharge GENERAL: Alert, oriented 3, NAD. SKIN: Warm and dry. HEAD: Normocephalic. EYES: No scleral icterus. No injection or drainage. NECK: Supple, trachea midline. No JVD or lymphadenopathy. CARDIOVASCULAR: Regular rate and rhythm without murmurs, gallops, or rubs. Significant bruit noted over AV fistula on the left upper extremity. RESPIRATORY: Breath sounds equal bilaterally. No accessory muscle use. GASTROINTESTINAL: Abdomen soft, non-tender, nondistended. MUSCULOSKELETAL: No cyanosis, or edema. Right groin Drain in place. BACK: Nontender without obvious deformity. No CVA tenderness. Pt update on day of discharge Patient is doing well. No fever, chills. No acute concerns. She is on MWF dialysis schedule. Hospital Course This is a 35-year-old female with a PMH of HTN, Depression, DM and ESRD on HD M/ / who presented to the ER w/ complaints of right grown redness and swelling x2 wks. Recent Left Brachial Arteriogram w/ Right Greater Saphenous Vein [place] on 10/18/[address] Rock, notes progressive swelling to right groin since that time. On arrival, BP 162/76, HR 91, O2 sat 98% on RA, Temp 99.4. WBC normal, elevated neutrophil count 75. Chemistry essentially baseline. Lactic Acid 1.2. INR 0.9. Lower Extremity US with large fluid collection in subcutaneous fat, no evidence of pseudoaneurysm. CT Lower Extremity with large mass in subcutaneous fat. Dr. Zapata consulted by ER physician, recommended IV Cipro. - Right groin fluid collection - Likely lymphatic. s/p drainage by Dr. Bernstein. - Continued Cipro 400mg IV Qday while in the hospital. - Tylenol, [place] and morphine when necessary for pain. - ESRD - Nephrology consulted. Patient receives MWF dialysis. - s/p surgical intervention 10/18/[address] Rock for AV Fistula revision - Hypertension - currently systolic BP in the 110 range. - Currently on amlodipine 10 mg, Lasix 40 mg twice a day, clonidine 0.1 mg twice a day. - Continue home meds. - Diabetes mellitus - continue NPH 30 units twice a day, sliding scale insulin. Full code. SCDs. Pt Condition on Discharge: Good Discharge Disposition: Discharge Home Discharge Time: > 30 minutes Discharge Instructions DIET: Follow Instructions for: Diabetic Diet Activities you can perform: Regular-No Restrictions Follow up Referrals: PCP Follow-up - 1 Week Vascular Surgery - 1 Week New Medications: Hydrocodone-Acetaminophen (Hydrocodone-Acetaminophen) 10-325 mg Tab 1 TAB PO Q6HR PRN PAIN 3-5 #20 TAB Continued Medications: Amlodipine (Amlodipine) 10 Mg Tab 10 MG PO DAILY Blood Pressure Management #30 Ref 0 TAB Aripiprazole (Abilify) 2 Mg Tab 2 MG PO DAILY #30 Ref 0 TAB Calcium Acetate (Phosphate Binder) (Calcium Acetate (Phosphate Binder)) 667 Mg Cap 1334 MG PO TID Hyperphosphatemia #180 Ref 0 CAP Clonidine (Clonidine) 0.2 Mg Tab 0.2 MG PO DAILY Blood Pressure Management #60 Ref 0 TAB Furosemide (Furosemide) 40 Mg Tab 40 MG PO BID #60 Ref 0 TAB Gentamicin Topical (Gentamicin Topical) 0.1% Cream 1 APPLIC TOPICAL BID Apply to affected area(s) Infection #15 Ref 0 GM Hydrocodone-Acetaminophen (Lortab) 10-325 Mg Tab 1 TAB PO BID PRN PAIN #60 Ref 0 TAB Insulin Human NPH Inj (Novolin N Inj) 1,000 Unit/10 Ml Vial 30 UNITS SQ BIDAC Blood Sugar Management #10 Ref 0 ML Insulin Human Regular Inj (Novolin R Inj) 1,000 Unit/10 Ml Vial 0 SQ DIRECTED Sliding Scale As Directed. Blood Sugar Management #10 Ref 0 ML Sertraline (Sertraline) 50 Mg Tab 50 MG PO DAILY #30 Ref 0 TAB Carolynn Jacobs DO Nov 08, 2016 14:36
[2016-11-08] MEDS ORDERED: HYDR-3583 PO (14:38)
== END 2016-11-08 16:49 | disposition home or self-care (01) | DRG 907 ==
LOC: NEPC 23:27 → NEDA 11-05 03:35 → NEPFCDU 11-05 06:17 → OBSVTOIN 11-06 10:32 → HOCA 11-06 19:15
PROVIDERS: ADMIT Hospitalist; ATTEND Hospitalist
PROC: 0J9C0ZZ Drainage of Pelvic Region Subcutaneous Tissue and Fascia, Open Approach (ICD-10-PCS; principal; 2016-11-06)
PROC: 0J9C00Z Drainage of Pelvic Region Subcutaneous Tissue and Fascia with Drainage Device, Open Approach (ICD-10-PCS; 2016-11-06)
DX: T81.83XA Persistent postprocedural fistula, initial encounter (principal); N18.6 End stage renal disease; E10.21 Type 1 diabetes mellitus with diabetic nephropathy; I12.0 Hypertensive chronic kidney disease with stage 5 chronic kidney disease or end stage renal disease; L03.115 Cellulitis of right lower limb; N25.81 Secondary hyperparathyroidism of renal origin; D63.1 Anemia in chronic kidney disease; E10.22 Type 1 diabetes mellitus with diabetic chronic kidney disease; Z99.2 Dependence on renal dialysis; Z79.4 Long term (current) use of insulin
CPT/HCPCS: 73700; 80048; 80053; 80069; 82948; 83605; 83970; 85025; 85610; 85730; 87015; 87040; 87070; 87102; 87116; 87205; 87206; 90935; 93926; 96374; G0378; J0744; J1815; J2270; J2405; J3010

== ENCOUNTER 2016-11-12 18:53 | Emergency (ER) | payer MEDICARE, OTHER ==
[~2016-11-12] VITALS: Ht 167.6 cm; Wt 88.0 kg
[~2016-11-12 18:53] MED LIST changes: -DAKINSFST TOPICAL; +HYDR-3583 PO; -LOSA25TA PO; +SERT-132 PO; -ZOLO100T PO
[2016-11-12 18:55] VITALS: BP 176/79; PULSE 85; RESP 15; TEMP 98.2; O2SAT 98
[2016-11-12] MEDS ORDERED: HYDR-3533 PO (19:52)
--- NOTE | 2016-11-12 19:58 | PD ---
HPI Chief Complaint: Wound/Suture/Staple Re-Check Time Seen by Provider: 19:45 Travel History International Travel<30 days: No Contact w/Intl Traveler<30days: No Traveled to known affect area: No History of Present Illness HPI This is a 35-year-old female with history of end-stage renal disease, hypertension, diabetes, depression due to recently underwent a drainage of a right groin collection on November 06 performed by vascular surgeon Dr. Zapata. Per his notes the collection did not look infected but rather a lymphatic collection extending with several old clots. Cultures were all negative. A Floral drain was placed and she was discharged on November 08. She presents today requesting at the drain be removed. She reports that it has been draining a clear/yellow tinged fluid ever since it was placed and it is bothering her. It has also been painful ever since it was placed. The pain is mild, aching, worse with palpation. According to her discharge summary she was reportedly written a prescription for hydrocodone and acetaminophen 20 tablets however she reports that she never received this in her discharge instructions. She has not yet attempted to make a follow-up appointment with Dr. Zapata despite her instructions to follow-up with him 1 week after discharge. Denies any fevers, chills, increasing soft tissue swelling or redness. No other complaints. PFSH Past Medical History Arthritis: No Asthma: No Autoimmune Disease: No Blood Disorders: No Anxiety: No Depression: Yes Heart Rhythm Problems: No Cancer: No Cardiovascular Problems: Yes High Cholesterol: No Chemotherapy: No Chest Pain: No Congestive Heart Failure: No COPD: No Cerebrovascular Accident: No Diabetes: Yes (DM I) Patient Takes Glucophage: No Dialysis: Yes () Diminished Hearing: No Deep Vein Thrombosis: Yes (RUE ) Endocrine: Yes GERD: No Glaucoma: No Genitourinary: Yes (STAGE 5 KIDNEY FAILURE HD PT ) Headaches: No Hepatitis: No Hiatal Hernia: No Hypertension: Yes Immune Disorder: No Kidney Stones: No Medical other: Yes (DIALYSIS ) Musculoskeletal: No Neurologic: No Psychiatric: No Reproductive: No Respiratory: No Immunizations Current: Yes Migraines: Yes Myocardial Infarction: No Radiation Therapy: No Renal Failure: Yes Seizures: No Sickle Cell Disease: No Sleep Apnea: No Thyroid Disease: No Ulcer: No Tetanus Vaccination: < 5 Years Influenza Vaccination: Yes ?: Not : 3 Para: 2 Miscarriage: 0 : 1 Past Surgical History Abdominal Surgery: No AICD: No Appendectomy: No Arteriovenous Shunt: Yes Body Medical Devices: lue fistula Cardiac Surgery: No Section: Yes Cholecystectomy: No Ear Surgery: No Endocrine Surgery: No Eye Surgery: No Genitourinary Surgery: Yes (TENKOFF CATHETER PLACED 11/25/2010 & VASCATH ) Gynecologic Surgery: Yes (C SECTION X2) Insulin Pump: No Joint Replacement: No Neurologic Surgery: No Oral Surgery: No Pacemaker: No Thoracic Surgery: No Other Surgery: Yes (L. Upper Arm Fistula , perma cath, ) Social History Alcohol Use: Yes (OCCASIONALLY) Tobacco Use: No Substance Use: No Allergies-Medications (Allergen,Severity, Reaction): Coded Allergies: Penicillin (Verified Allergy, Severe, HIVES,RASH, 11/12/16) Reported Meds & Prescriptions Reported Meds & Active Scripts Active Lortab (Hydrocodone-Acetaminophen) 5-325 Mg Tab 1 Tab PO Q6H PRN Hydrocodone-Acetaminophen 10-325 mg Tab 1 Tab PO Q6HR PRN Gentamicin Topical 0.1% Cream 1 Applic TOPICAL BID Apply to affected area(s) Lortab (Hydrocodone-Acetaminophen) 10-325 Mg Tab 1 Tab PO BID PRN Reported Sertraline (Sertraline HCl) 50 Mg Tab 50 Mg PO DAILY Calcium Acetate (Phosphate Binder) 667 Mg Cap 1,334 Mg PO TID Abilify (Aripiprazole) 2 Mg Tab 2 Mg PO DAILY Furosemide 40 Mg Tab 40 Mg PO BID Amlodipine (Amlodipine Besylate) 10 Mg Tab 10 Mg PO DAILY Clonidine (Clonidine HCl) 0.2 Mg Tab 0.2 Mg PO DAILY Novolin R Inj (Insulin Human Regular) 1,000 Unit/10 Ml Vial 0 SQ DIRECTED Sliding Scale As Directed. Novolin N Inj (Insulin Human NPH) 1,000 Unit/10 Ml Vial 30 Units SQ BIDAC Review of Systems Except as stated in HPI: all other systems reviewed are Neg Physical Exam Narrative Examined in the presence of a female nurse. GENERAL: Well-developed well-nourished female in no acute distress SKIN: Warm and dry. Examination of the right groin reveals a string in place. It is not currently draining, no foul smelling odor. There is some mild ecchymosis and redness of the skin without induration or erythema or fluctuance. HEAD: Atraumatic. Normocephalic. EYES: Pupils equal and round. No scleral icterus. No injection or drainage. ENT: No nasal bleeding or discharge. Mucous membranes pink and moist. NECK: Trachea midline. No JVD. CARDIOVASCULAR: Regular rate and rhythm. No murmur appreciated. RESPIRATORY: No accessory muscle use. Clear to auscultation. Breath sounds equal bilaterally. GASTROINTESTINAL: Abdomen soft, non-tender, nondistended. Hepatic and splenic margins not palpable. MUSCULOSKELETAL: No obvious deformities. No clubbing. No cyanosis. No edema. NEUROLOGICAL: Awake and alert. No obvious cranial nerve deficits. Motor grossly within normal limits. Normal speech. PSYCHIATRIC: Appropriate mood and affect; insight and judgment normal. Data Data Last Documented VS Vital Signs Date Time Temp Pulse Resp B/P Pulse Ox O2 Delivery O2 Flow Rate FiO2 11/12/16 18:55 98.2 85 15 176/79 98 MDM Medical Decision Making Medical Screen Exam Complete: Yes Emergency Medical Condition: Yes Medical Record Reviewed: Yes Differential Diagnosis Wound recheck, postoperative pain, cellulitis, abscess Narrative Course 35-year-old female presents after incision and drainage of a fluid collection in the right groin on November 06, Floral drain placement, presents today requesting that the drain be removed because it is bothering her and it has been draining ever since was placed. Examination reveals no evidence of obvious infectious process and all of the cultures from her hospitalization are negative. At this point in time the plan will be to have the patient follow up in a nonemergent basis with her vascular surgeon as previously instructed. I see no recent prescriptions for narcotics on her [facility] records and therefore she will be given 12 tablets of hydrocodone acetaminophen. Diagnosis Primary Impression: Encounter for wound re-check Referrals: Shiva Zapata MD Additional Instructions: Follow-up with your surgeon in the next 3-4 days, it is incumbent upon you to call his office to schedule a appointment. Return for any emergent medical conditions. Med/Other Pt SpecificInfo: Prescription(s) given Scripts Hydrocodone-Acetaminophen (Lortab)5-325 Mg Tab1 Tab PO Q6H PRN (PAIN) #12 TAB Ref 0 Prov:Lightburn,Fam Kavin MD 11/12/16 Disposition: 01 DISCHARGE HOME Condition: Stable Samuel Barr Nov 12, 2016 19:58
== END 2016-11-12 20:14 | disposition home or self-care (01) ==
LOC: NEPD 18:53
DX: Z51.89 Encounter for other specified aftercare (principal); E10.22 Type 1 diabetes mellitus with diabetic chronic kidney disease; I12.0 Hypertensive chronic kidney disease with stage 5 chronic kidney disease or end stage renal disease; N18.6 End stage renal disease; Z99.2 Dependence on renal dialysis; Z86.718 Personal history of other venous thrombosis and embolism; Z79.4 Long term (current) use of insulin; Z79.899 Other long term (current) drug therapy; Z88.0 Allergy status to penicillin
CPT/HCPCS: 99283

== ENCOUNTER 2016-11-14 16:05 | Inpatient (IN) | payer MEDICARE, OTHER ==
[~2016-11-14] VITALS: Ht 157.5 cm; Wt 99.0 kg
[~2016-11-14 16:05] MED LIST changes: +HYDR-3533 PO
[2016-11-14 16:07] VITALS: BP 166/69; PULSE 102; TEMP 97.8; O2SAT 99
--- NOTE | 2016-11-14 16:46 | PD ---
Physical Exam Date Seen by Provider: Nov 14, 2016 Time Seen by Provider: 16:38 Narrative 35 y/o female with Hx Dialysis and recent Drains for previous fistula surgery. Patient of Dr. Barraza. Has had Purulent Drainage, and pain in drain area as well as increased Blood Sugar. Last BS was 438. Pain is 6/10. Patient had Dyalisis this am. Vital signs reviewed. Patient stable. Awaiting Bed placement. Data Data Last Documented VS Vital Signs Date Time Temp Pulse Resp B/P Pulse Ox O2 Delivery O2 Flow Rate FiO2 11/14/16 16:07 97.8 102 166/69 99 MDM Medical Record Reviewed: Yes Supervised Visit with BEVRELEY: Yes Condition: Stable Wojciech Gould Nov 14, 2016 16:46
[2016-11-14 19:00] VITALS: BP 179/81; PULSE 88; RESP 18; O2SAT 97
--- NOTE | 2016-11-14 19:10 | PD ---
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 Patient reports fevers this afternoon while in dialysis. She states that she has felt nauseated and vomited last night. She has not vomited today. She states that she's had foul drainage from the drain and called Dr. Bernstein's office and was advised to come to the ED. Pt reports her blood sugar has been elevated and it is normally well controlled. She reports pain 5/10 and described it as aching and throbbing. PFSH Past Medical History Arthritis: No Asthma: No Autoimmune Disease: No Blood Disorders: No Anxiety: No Depression: Yes Heart Rhythm Problems: No Cancer: No High Cholesterol: No Chemotherapy: No Chest Pain: No Congestive Heart Failure: No COPD: No Cerebrovascular Accident: No Diabetes: Yes (DM I) Patient Takes Glucophage: No Dialysis: Yes ( W ) Diminished Hearing: No Deep Vein Thrombosis: Yes (RUE ) GERD: No Glaucoma: No Headaches: No Hepatitis: No Hiatal Hernia: No Hypertension: Yes Immune Disorder: No Kidney Stones: No Musculoskeletal: No Neurologic: No Psychiatric: No Reproductive: No Respiratory: No Immunizations Current: Yes Migraines: Yes Myocardial Infarction: No Radiation Therapy: No Renal Failure: Yes (ESRD on HD) Seizures: No Sickle Cell Disease: No Sleep Apnea: No Thyroid Disease: No Ulcer: No Tetanus Vaccination: < 5 Years Influenza Vaccination: Yes ?: Not : 3 Para: 2 Miscarriage: 0 : 1 Past Surgical History Abdominal Surgery: No AICD: No Appendectomy: No Arteriovenous Shunt: Yes (LUE AVF) Cardiac Surgery: No Section: Yes Cholecystectomy: No Ear Surgery: No Endocrine Surgery: No Eye Surgery: No Genitourinary Surgery: Yes (TENKOFF CATHETER PLACED 11/25/2010 & VASCATH ) Insulin Pump: No Joint Replacement: No Neurologic Surgery: No Oral Surgery: No Pacemaker: No Thoracic Surgery: No Social History Alcohol Use: No (pt denies ) Tobacco Use: No Substance Use: No (pt denies ) Allergies-Medications (Allergen,Severity, Reaction): Coded Allergies: Penicillin (Verified Allergy, Severe, HIVES,RASH, 11/14/16) Reported Meds & Prescriptions Reported Meds & Active Scripts Active Gentamicin Topical 0.1% Cream 1 Applic TOPICAL BID Apply to affected area(s) Lortab (Hydrocodone-Acetaminophen) 10-325 Mg Tab 1 Tab PO BID PRN Reported Sertraline (Sertraline HCl) 50 Mg Tab 50 Mg PO DAILY Calcium Acetate (Phosphate Binder) 667 Mg Cap 1,334 Mg PO TID Abilify (Aripiprazole) 2 Mg Tab 2 Mg PO DAILY Furosemide 40 Mg Tab 40 Mg PO BID Amlodipine (Amlodipine Besylate) 10 Mg Tab 10 Mg PO DAILY Clonidine (Clonidine HCl) 0.2 Mg Tab 0.2 Mg PO DAILY Novolin R Inj (Insulin Human Regular) 1,000 Unit/10 Ml Vial 0 SQ DIRECTED Sliding Scale As Directed. Novolin N Inj (Insulin Human NPH) 1,000 Unit/10 Ml Vial 30 Units SQ BIDAC Review of Systems Except as stated in HPI: all other systems reviewed are Neg General / Constitutional: Positive: Fever, Chills Cardiovascular: No: Chest Pain or Discomfort Respiratory: No: Shortness of Breath Gastrointestinal: Positive: Nausea, Vomiting, No: Abdominal Pain Musculoskeletal: Positive: Pain Skin: Positive Change in Pigmentation Neurologic: No: Weakness, Dizziness, Syncope Physical Exam Narrative GENERAL: Obese, well developed alert female. Resting in no acute distress. SKIN: Warm and dry. 12 cm x 6 cm area of edema and erythema to right upper thigh , raymond drain with clear drainage noted. HEAD: Atraumatic. Normocephalic. EYES: Pupils equal and round. No scleral icterus. No injection or drainage. ENT: No nasal bleeding or discharge. Mucous membranes pink and moist. NECK: Trachea midline. No JVD. CARDIOVASCULAR: Regular rate and rhythm. 2/6 systolic murmur. RESPIRATORY: No accessory muscle use. Clear to auscultation. Breath sounds equal bilaterally. GASTROINTESTINAL: Abdomen obese, soft, non-tender, nondistended. Hepatic and splenic margins not palpable. MUSCULOSKELETAL: Extremities without clubbing, cyanosis, or edema. No obvious deformities. 2+ dorsalis pedis pulses bilaterally. NEUROLOGICAL: Awake and alert. No obvious cranial nerve deficits. Motor grossly within normal limits. Five out of 5 muscle strength in the arms and legs. Normal speech. PSYCHIATRIC: Appropriate mood and affect; insight and judgment normal. Data Data Last Documented VS Vital Signs Date Time Temp Pulse Resp B/P Pulse Ox O2 Delivery O2 Flow Rate FiO2 11/14/16 18:27 102 17 99 Room Air 11/14/16 16:07 97.8 166/69 Orders Complete Blood Count With Diff (11/14/16 18:32) Wound Culture And Gram Stain (11/14/16 18:32) Comprehensive Metabolic Panel (11/14/16 18:32) Blood Glucose (11/14/16 18:32) Blood Culture (11/14/16 18:32) Iv Access Insert/Monitor (11/14/16 18:32) Ct Femur W/O Iv Contrast (11/14/16 ) Ed Urine Pregnancytest Poc (11/14/16 18:44) Lactic Acid (11/14/16 19:06) Insulin Human Regular Inj (Novolin R Inj (11/14/16 20:15) Vancomycin Inj (Vancomycin Inj) (11/14/16 20:45) Consult General Surgery (11/14/16 ) Labs Laboratory Tests Test 11/14/16 11/14/16 18:00 19:30 White Blood Count 15.8 TH/MM3 Red Blood Count 2.72 MIL/MM3 Hemoglobin 8.6 GM/DL Hematocrit 26.3 % Mean Corpuscular Volume 96.4 FL Mean Corpuscular Hemoglobin 31.6 PG Mean Corpuscular Hemoglobin 32.8 % Concent Red Cell Distribution Width 14.3 % Platelet Count 180 TH/MM3 Mean Platelet Volume 7.6 FL Neutrophils (%) (Auto) 89.3 % Lymphocytes (%) (Auto) 5.5 % Monocytes (%) (Auto) 5.0 % Eosinophils (%) (Auto) 0.0 % Basophils (%) (Auto) 0.2 % Neutrophils # (Auto) 14.1 TH/MM3 Lymphocytes # (Auto) 0.9 TH/MM3 Monocytes # (Auto) 0.8 TH/MM3 Eosinophils # (Auto) 0.0 TH/MM3 Basophils # (Auto) 0.0 TH/MM3 CBC Comment DIFF FINAL Differential Comment Sodium Level 129 MEQ/L Potassium Level 5.7 MEQ/L Chloride Level 95 MEQ/L Carbon Dioxide Level 25.3 MEQ/L Anion Gap 9 MEQ/L Blood Urea Nitrogen 48 MG/DL Creatinine 8.92 MG/DL Estimat Glomerular Filtration 5 ML/MIN Rate Random Glucose 560 MG/DL Calcium Level 8.7 MG/DL Total Bilirubin 0.3 MG/DL Aspartate Amino Transf 14 U/L (AST/SGOT) Alanine Aminotransferase 16 U/L (ALT/SGPT) Alkaline Phosphatase 121 U/L Total Protein 6.9 GM/DL Albumin 3.1 GM/DL Lactic Acid Level 1.5 mmol/L MDM Medical Decision Making Medical Screen Exam Complete: Yes Emergency Medical Condition: Yes Interpretation(s) Vital Signs Date Time Temp Pulse Resp B/P Pulse Ox O2 Delivery O2 Flow Rate FiO2 11/14/16 18:27 102 17 99 Room Air 11/14/16 16:07 97.8 102 166/69 99 Differential Diagnosis Sepsis vs DKA vs metabolic abnormality vs abscess vs other Narrative Course Patient is a 35-year-old female presenting for evaluation of elevated blood sugars as well as swelling to her right upper leg. Patient was seen and evaluated in the emergency department on 11/05/16, again on 11/12/16 due to same issue. This all began with right saphenous vein harvesting on 10/18/16. The patient was seen and evaluated on the she was advised to follow-up with Dr. Bernstein, she had been advised to do this on the prior discharge at the beginning of November but had not done so. She states that she call the office today to be seen because of the signs and symptoms of infection and was advised to come to the emergency department. Reviewed labs and imaging from previous presentations. Pt was diagnosed with a right groin mass. Previous CT reported a large mass in the SQ tissue. Fluid collection was drained by Dr. Bernstein on 11/06/16 and a pen harper drain was placed at that time. Pt did not follow up as OP and represented here on the . Wound culture and blood cultures obtained. CBC with WBC of 15.8 with left shift CMP with a glucose of 560, pt given 10 units of IV insulin Lactic acid 1.5, anion gap 9 BUN/Cr elevated which is to be expected. Dr. Gordon discussed findings with Dr. Bernstein who recommended pt be admitted for IV abx and for Pen harper drain to be removed. CT of the right leg shows decrease in fluid collection with some surrounding cellulitis or edema. [facility] paged for admit per Dr. Gordon, pt started on Vancomycin empirically. Raymond drain removed without difficulty. Dr. Gordon discussed with Dr. Waddell who accepted admit. 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
[2016-11-14 19:31] LABS: AUTOMATED NEUTROPHIL # 14.1 TH/MM3 (1.8-7.7); BASOPHIL % 0.2 % (0.0-2.0); HEMATOCRIT 26.3 % (35.0-46.0); HEMO FLAGS DIFF FINAL; LYMPH % 5.5 % (9.0-44.0); LYMPHOCYTE # 0.9 TH/MM3 (1.0-4.8); MEAN CELL VOLUME 96.4 FL (80.0-100.0); MEAN CORPUSCULAR HEMOGLOBIN 31.6 PG (27.0-34.0); MEAN CORPUSCULAR HGB CONC 32.8 % (32.0-36.0); NEUT % 89.3 % (16.0-70.0); PLATELET COUNT 180 TH/MM3 (150-450); RED BLOOD COUNT 2.72 MIL/MM3 (4.00-5.30); RED CELL DISTRIBUTION WIDTH 14.3 % (11.6-17.2); WHITE BLOOD COUNT 15.8 TH/MM3 (4.0-11.0)
[2016-11-14 19:56] LABS: ALKALINE PHOSPHATASE 121 U/L (45-117); ALT (GPT) 16 U/L (10-53); ANION GAP 9 MEQ/L (5-15); AST (GOT) 14 U/L (15-37); BICARBONATE 25.3 MEQ/L (21.0-32.0); BLOOD UREA NITROGEN 48 MG/DL (7-18); CHLORIDE 95 MEQ/L (98-107); GLOMERULAR FILTRATION RATE 5 ML/MIN (>89); POTASSIUM 5.7 MEQ/L (3.5-5.1); SODIUM (NA) 129 MEQ/L (136-145); TOTAL BILIRUBIN ADULT 0.3 MG/DL (0.2-1.0)
[2016-11-14] MEDS ORDERED: INSULIN HUMAN REGULAR 1,000 UNITS/10 ML VIAL IV PUSH ONE (20:15)
--- NOTE | 2016-11-14 20:25 | RADRPT ---
EXAM DATE/TIME: 11/14/2016 20:00 [place] COMPARISON: US LEG RIGHT HEMATOMA/PSEUDOANEURYSM, November 05, 2016, 2:42. INDICATIONS : Recent right thigh fistula surgery. Fever with thick yellow drainage from site. RADIATION DOSE: 18.00 CTDIvol (mGy) MEDICAL HISTORY : Deep venous thrombosis. Diabetes mellitus type 1. Cardiovascular diseaseRenal failure, current dialy sis. Hypertension. SURGICAL HISTORY : section. AV shunt. ENCOUNTER: Initial ACUITY: 1 day PAIN SCALE: 6/10 LOCATION: Right thigh TECHNIQUE: Volumetric scanning of the femur was performed. Using automated exposure control and adjustment of t he mA and/or kV according to patient size, radiation dose was kept as low as reasonably achievable to obtain optimal diagnostic quality images. DICOM format image data is available electronically for review and comparison. FINDINGS: Comparison is November 05. A drain has been placed into the subcutaneous soft tissues of the medial right thigh. Previous fluid collection is markedly decreased in size now with a residual 4.5 x 3.6 cm flui d collection close to the drain. There is surrounding skin thickening and infiltration of the subcuta neous tissues which may represent cellulitis. There are no acute bony abnormalities. Process remains extra muscular. CONCLUSION: 1. Marked decrease in size of previous fluid collection in the medial right thigh with some surroundi ng cellulitis or edema. Drain has been placed. Measurements given above. No new fluid collections. No acute bony abnormality. Abel Redding MD on November 14, 2016 at 20:19 Board Certified Radiologist. This report was verified electronically.
[2016-11-14] MEDS ORDERED: VANCOMYCIN INJ 1,000 MG in SODIUM CHLOR 0.9% 250 ML INJ 250 ML IV ONE (20:45)
[2016-11-14] MEDS ORDERED: SODIUM CHLORIDE 0.9% FLUSH 10 ML FLUSH IV FLUSH PRN (21:15)
[2016-11-14] MEDS ORDERED: SODIUM CHLOR 0.9% 1000 ML INJ 1,000 ML IV SCH (21:15)
[2016-11-14] MEDS ORDERED: ONDANSETRON HCL 4 MG/2 ML VIAL IVP PRN (21:15)
[2016-11-14] MEDS ORDERED: NALOXONE HCL 0.4 MG/ML AMP IV PRN (21:15)
[2016-11-14 21:23] VITALS: BP_SYST 167; BP_SYST 179; BP_DIAS 78; BP_DIAS 81; PULSE 85; RESP 18; O2SAT 100
[2016-11-14] MEDS ORDERED: Vancomycin Consult Pharmacy 1 EA OTHER SCH (21:30)
[2016-11-14] MEDS ORDERED: SODIUM POLYSTYRENE SULFONATE SUSP 15 GM/60 ML CUP PO ONE (21:45)
[2016-11-14] MEDS ORDERED: PIPERACIL-TAZO 4.5 GM PREMIX 100 ML IV SCH (22:00)
--- NOTE | 2016-11-14 22:03 | HHI.HP ---
[facility] No Primary Care Physician Admission Diagnosis right groin cellulitis, hyperglycemia Diagnoses: (1) Cellulitis (2) ESRD (end stage renal disease) on dialysis (3) Type 1 diabetes mellitus Chief Complaint: "Drainage tube is infected" Travel History International Travel<30 Days: No Contact w/Intl Traveler <30 Da: No Traveled to Known Affected Are: No History of Present Illness Written by Cassia Kong, acting as scribe for Dr. Waddell on 11/14/16 at 22:08. The patient is seen in the ED. On November 05, she had a drainage tube placed ( for lymphatic fluid collection) following right saphenous vein harvesting on (by Dr. Rock) for fistula revision to left upper extremity for hemodialysis. She was re-admitted 11/05/16 and discharged 11/08/16 following placement of the (Hanna) drain for lymphatic fluid collection in right groin. Dr. Zapata was the surgeon. Current symptoms: Blood sugars running high, vomiting multiple episodes overnight - emesis was clear, area swollen with yellowish drainage. The drainage had been clear previously. She had a fever at hemodialysis. Denies black or red stool, chest pain, syncope. She reports shortness of breath after dialysis and two episodes of diarrhea. Denies being on antibiotics at home. Denies dysuria, hematuria or cough. Dr. Barraza is her finance effectiveness manager. Review of Systems Except as stated in HPI: all other systems reviewed are Neg Past Family Social History Past Medical History ESRD on HD Diabetes Mellitus Hypertension CAD, CHF, irregular heart rhythms, COPD or breathing problems, liver problems, DVT, PE, CVA, seizures Past Surgical History Left upper extremity AV fistula Right groin saphenous vein harvesting Permacath twice C Section x 2 Missy drain placement - right groin 11/05/16 . Reported Medications Reported Meds & Active Scripts Active Gentamicin Topical 0.1% Cream 1 Applic TOPICAL BID Apply to affected area(s) Lortab (Hydrocodone-Acetaminophen) 10-325 Mg Tab 1 Tab PO BID PRN Reported Sertraline (Sertraline HCl) 50 Mg Tab 50 Mg PO DAILY Calcium Acetate (Phosphate Binder) 667 Mg Cap 1,334 Mg PO TID Abilify (Aripiprazole) 2 Mg Tab 2 Mg PO DAILY Furosemide 40 Mg Tab 40 Mg PO BID Amlodipine (Amlodipine Besylate) 10 Mg Tab 10 Mg PO DAILY Clonidine (Clonidine HCl) 0.2 Mg Tab 0.2 Mg PO DAILY Novolin R Inj (Insulin Human Regular) 1,000 Unit/10 Ml Vial 0 SQ DIRECTED Sliding Scale As Directed. Novolin N Inj (Insulin Human NPH) 1,000 Unit/10 Ml Vial 30 Units SQ BIDAC . Allergies: Coded Allergies: Penicillin (Verified Allergy, Severe, HIVES,RASH, 11/14/16) Active Ordered Medications Current Medications Insulin Human Regular 10 units 10 units ONCE ONCE IV PUSH Last administered on 11/14/16 21:14; Start 11/14/16 at 20:15; Stop 11/14/16 at 20:16; Status DC Vancomycin HCl/ Sodium Chloride (Vancomycin Inj/ NS 250 ml Inj) 250 ml @ 250 mls/hr ONCE ONCE IV Last administered on 11/14/16 21:12; Start 11/14/16 at 20: 45; Stop 11/14/16 at 21:44; Status DC Sodium Chloride (NS Flush) 2 ml UNSCH PRN IV FLUSH FLUSH AFTER USING IV ACCESS ; Start 11/14/16 at 21:15 Sodium Chloride (NS Flush) 2 ml BID IV FLUSH ; Start 11/15/16 at 09:00 Ondansetron HCl (Zofran Inj) 4 mg Q6H PRN IVP NAUSEA OR VOMITING; Start at 21:15 Naloxone HCl 0.4 mg 0.4 mg UNSCH PRN IV SEE LABEL COMMENTS; Start 11/14/16 at 21 :15 Sodium Chloride 1,000 ml @ 100 mls/hr Q10H IV ; Start 11/14/16 at 21:15 Pharmacy Profile Note 0 ml @ 0 mls/hr UNSCH OTHER ; Start 11/14/16 at 21:30; Status Cancel Piperacillin Sod/ Tazobactam Sod (Zosyn 4.5 Gm Premix) 100 ml @ 200 mls/hr Q6H IV ; Start 11/14/16 at 22:00 Sodium Polystyrene Sulfonate (Kayexalate Liq) 30 gm ONCE ONCE PO ; Start at 21:45; Stop 11/14/16 at 21:46; Status DC . Family History Brother with asthma . Social History Tobacco: denies Alcohol: denies Illicit Drugs: denies . Physical Exam Vital Signs Vital Signs Date Time Temp Pulse Resp B/P Pulse Ox O2 Delivery O2 Flow Rate FiO2 11/14/16 21:23 85 18 167/78 100 11/14/16 19:00 88 18 179/81 97 11/14/16 18:27 102 17 99 Room Air 11/14/16 16:07 97.8 102 166/69 99 Physical Exam GENERAL: This is a morbidly obese patient, in no apparent distress. SKIN: No rashes. Cool and dry. Right groin with hardened, erythematous, warm area of swelling c/w abscess. HEAD: Atraumatic. Normocephalic. EYES: No scleral icterus. No injection or drainage. ENT: Nose without bleeding, purulent drainage. NECK: Trachea midline. No JVD. CARDIOVASCULAR: Regular rate and rhythm without murmurs, gallops, or rubs. RESPIRATORY: Clear to auscultation. Breath sounds equal bilaterally. No wheezes , rales, or rhonchi. GASTROINTESTINAL: Abdomen soft, non-tender, nondistended. No guarding. MUSCULOSKELETAL: Extremities without clubbing, cyanosis. No calf tenderness. NEUROLOGICAL: Awake and alert. Motor and sensory grossly within normal limits. Normal speech. . Laboratory Laboratory Tests Test 11/14/16 11/14/16 18:00 19:30 White Blood Count 15.8 Red Blood Count 2.72 Hemoglobin 8.6 Hematocrit 26.3 Mean Corpuscular Volume 96.4 Mean Corpuscular Hemoglobin 31.6 Mean Corpuscular Hemoglobin 32.8 Concent Red Cell Distribution Width 14.3 Platelet Count 180 Mean Platelet Volume 7.6 Neutrophils (%) (Auto) 89.3 Lymphocytes (%) (Auto) 5.5 Monocytes (%) (Auto) 5.0 Eosinophils (%) (Auto) 0.0 Basophils (%) (Auto) 0.2 Neutrophils # (Auto) 14.1 Lymphocytes # (Auto) 0.9 Monocytes # (Auto) 0.8 Eosinophils # (Auto) 0.0 Basophils # (Auto) 0.0 CBC Comment DIFF FINAL Differential Comment Sodium Level 129 Potassium Level 5.7 Chloride Level 95 Carbon Dioxide Level 25.3 Anion Gap 9 Blood Urea Nitrogen 48 Creatinine 8.92 Estimat Glomerular Filtration 5 Rate Random Glucose 560 Calcium Level 8.7 Total Bilirubin 0.3 Aspartate Amino Transf 14 (AST/SGOT) Alanine Aminotransferase 16 (ALT/SGPT) Alkaline Phosphatase 121 Total Protein 6.9 Albumin 3.1 Lactic Acid Level 1.5 Date/Time Procedure Status Source Growth 11/14/16 18:30 Aerobic Blood Culture Received Blood Peripheral Pending 11/14/16 18:30 Anaerobic Blood Culture Received Blood Peripheral Pending 11/14/16 18:00 Gram Stain Received Wound Groin Pending 11/14/16 18:00 Wound Culture Received Wound Groin Pending Result Diagram: 11/14/16 1800 11/14/16 1800 Imaging Last Impressions Lower Extremity CT 11/14/16 0000 Signed Impressions: Service Date/Time: Monday, November 14, 2016 20:00 - CONCLUSION: 1. Marked decrease in size of previous fluid collection in the medial right thigh with some surrounding cellulitis or edema. Drain has been placed. Measurements given above. No new fluid collections. No acute bony abnormality. Abel Redding MD . Assessment and Plan Problem List: (1) Cellulitis ICD Code: L03.90 Status: Acute (2) Type 1 diabetes mellitus ICD Code: E10.9 Status: Chronic (3) ESRD (end stage renal disease) on dialysis ICD Code: N18.6 Status: Chronic Assessment and Plan 35 y/o female with ESRD on HD who had a revision of her left arm fistula with a right thigh saphenous vein harvest for grafting on 10/18 with subsequent lymphatic leak requiring Hanna drain placement by Dr. Bernstein on 11/05 here with infection of the surgical site. Cellulitis, Infected surgical site - suspect possible abscess vs infected seroma - Right CT of femur without IV contrast - marked decrease in size of previous fluid collection in the medial right thigh with some surrounding cellulitis or edema. Drain noted. No new fluid collections. No acute bony abnormality. - Antibiotics: IV Vancomycin and Cefepime - Dr. Ronquillo of general surgery be consulted - assistance appreciated - Continue home [place] 10/325 mg BID p.o. PRN 1-10 ESRD on hemodialysis, chronic - Consult Dr. Barraza - appreciate assistance with vancomycin dosing and monitoring and for HD - avoid nephrotoxins - monitor BMP Type 1 diabetes mellitus, chronic with acute hyperglycemia - Blood glucose was 560 on admission - Given Regular insulin 10 units IV in ED - recheck Blood glucose was 254 at 2214 - Resume home NPH regimen - Accu-Cheks before meals and at bedtime with low-dose NovoLog sliding scale coverage - Hypoglycemia protocol - Monitor trends and blood glucose readings and adjust treatments as indicated Hypertension, poorly controlled - BP 166/69 on admission - resume home blood pressure medications but will change Clonidine to 0.1 mg q12h from 0.2 mg daily for more optimal blood pressure control - monitor trends in blood pressure readings and adjust treatment as indicated DVT prophylaxis - Heparin 5000 units subq q8h This note was transcribed by amadou [Cassia Kong]. I, Dr. Serenity Waddell personally performed the history, physical exam, and medical decision making; and confirmed the accuracy of the information in the transcribed note. Authenticated by Dr. Serenity Waddell on 11/14/16 at 22:08. Discussed Condition With ER physician and patient . Physician Certification 2 Midnight Certification Type: Admission for Inpatient Services Order for Inpatient Services The services are ordered in accordance with Medicare regulations or non- Medicare payer requirements, as applicable. In the case of services not specified as inpatient-only, they are appropriately provided as inpatient services in accordance with the 2-midnight benchmark. Estimated LOS (days): 3 days is the estimated time the patient will need to remain in the hospital, assuming treatment plan goals are met and no additional complications. Post-Hospital Plan: Home Problem Qualifiers (1) Cellulitis: Qualified Code: L03.115 - Cellulitis of right lower extremity (2) Type 1 diabetes mellitus: Qualified Code: E10.22 - Type 1 diabetes mellitus with chronic kidney disease on chronic dialysis Cassia Kong Nov 14, 2016 22:03 Serenity Waddell MD Nov 15, 2016 05:42
[2016-11-14] MEDS ORDERED: INSULIN HUMAN NPH 1,000 UNITS/10 ML VIAL SQ SCH (22:30)
[2016-11-14] MEDS ORDERED: GLUCAGON 1 MG/ML VIAL OTHER PRN (22:30)
[2016-11-14] MEDS ORDERED: DEXTROSE 50% IN WATER 50 ML VIAL(D50) IV PRN (22:30)
[2016-11-14] MEDS: FUROSEMIDE 40 MG TAB PO SCH (22:42)
[2016-11-14] MEDS: cloNIDine HCL 0.1 MG TAB PO SCH (23:30)
[2016-11-14 23:44] VITALS: BP 153/72; PULSE 79; RESP 16; TEMP 98.7; O2SAT 99
[2016-11-15] VITALS (11 sets, daily range): BP systolic 131–178; BP diastolic 60–77; PULSE 72–86; RESP 16–19; TEMP 97.8–99.4; O2SAT 98–100
[2016-11-15] MEDS: CEFEPIME INJ 1,000 MG in SODIUM CHLORIDE 0.9% INJ 100 ML IV SCH ×2 (00:20→22:21)
[2016-11-15] MEDS ORDERED: HEPARIN SODIUM - SQ 10,000 UNITS/ML VIAL SQ SCH (02:00)
[2016-11-15] MEDS: INSULIN NovoLIN REGULAR SUPPLEMENTAL SCALE SQ SCH ×4 (06:05→21:00)
[2016-11-15] MEDS: FUROSEMIDE 40 MG TAB PO SCH ×2 (08:21→20:57)
[2016-11-15] MEDS: cloNIDine HCL 0.1 MG TAB PO SCH ×2 (08:21→20:56)
[2016-11-15] MEDS: SERTRALINE HCL 50 MG TAB PO SCH (08:21)
[2016-11-15] MEDS: ARIPiprazole 2 MG TAB PO SCH (08:21)
[2016-11-15] MEDS: SODIUM CHLORIDE 0.9% FLUSH 10 ML FLUSH IV FLUSH SCH ×2 (08:21→20:57)
[2016-11-15] MEDS: ACETAMINOPHEN/HYDROcodone 325 MG/10 MG TAB PO PRN ×2 (08:22→20:56)
[2016-11-15] MEDS: CALCIUM ACETATE 667 MG CAP PO SCH ×3 (08:22→19:17)
[2016-11-15] MEDS: INSULIN HUMAN NPH 1,000 UNITS/10 ML VIAL SQ SCH ×2 (08:24→19:19)
[2016-11-15 10:03] LABS: AUTOMATED NEUTROPHIL # 8.8 TH/MM3 (1.8-7.7); BASOPHIL % 0.4 % (0.0-2.0); EOSINOPHIL % 0.5 % (0.0-4.0); HEMATOCRIT 26.8 % (35.0-46.0); HEMO FLAGS DIFF FINAL; LYMPH % 8.9 % (9.0-44.0); LYMPHOCYTE # 0.9 TH/MM3 (1.0-4.8); MEAN CELL VOLUME 94.8 FL (80.0-100.0); MEAN CORPUSCULAR HEMOGLOBIN 32.2 PG (27.0-34.0); MONO % 5.3 % (0.0-8.0); NEUT % 84.9 % (16.0-70.0); PLATELET COUNT 156 TH/MM3 (150-450); RED BLOOD COUNT 2.83 MIL/MM3 (4.00-5.30); RED CELL DISTRIBUTION WIDTH 14.2 % (11.6-17.2); WHITE BLOOD COUNT 10.3 TH/MM3 (4.0-11.0)
[2016-11-15 10:39] LABS: BICARBONATE 26.8 MEQ/L (21.0-32.0); POTASSIUM 4.5 MEQ/L (3.5-5.1)
--- NOTE | 2016-11-15 10:57 | PD.CONS ---
HPI Service Nephrology Consult Requested By YAZMIN Allen Reason for Consult Known ESRD on HD Primary Care Physician No Primary Care Physician History of Present Illness The patient is a 35 yo AA female who is known to our services for ESRD on HD. She came back to the ED yesterday as she was having continued pain and discharge from R groin drain from vein harvesting that was performed 10/18. Was admitted on 11/05 for pain and swelling in her groin and subsequently had to have Missy drain placed. Was discharged with drain, but had continued pain and developed odor to her drain. In ED, drain was removed. Had HD yesterday as per regular schedule, but only ran short treatment. (Anu Sexton) Review of Systems Constitutional: COMPLAINS OF: Fever Gastrointestinal: COMPLAINS OF: Nausea, Vomiting (R groin pain and drainage) ( Anu Sexton) Past Family Social History Allergies: Coded Allergies: Penicillin (Verified Allergy, Severe, HIVES,RASH, 11/14/16) Past Medical History End-stage renal disease Diabetes mellitus Hypertension Anemia of renal disease Secondary hyperparathyroidism of renal disease. Past Surgical History Creation of a left AV dialysis fistula which unfortunately was associated with steal syndrome now improved post surgical revision. Harvesting right greater saphenous vein for above-mentioned procedure. Reported Medications Reported Meds & Active Scripts Active Gentamicin Topical 0.1% Cream 1 Applic TOPICAL BID Apply to affected area(s) Lortab (Hydrocodone-Acetaminophen) 10-325 Mg Tab 1 Tab PO BID PRN Reported Sertraline (Sertraline HCl) 50 Mg Tab 50 Mg PO DAILY Calcium Acetate (Phosphate Binder) 667 Mg Cap 1,334 Mg PO TID Abilify (Aripiprazole) 2 Mg Tab 2 Mg PO DAILY Furosemide 40 Mg Tab 40 Mg PO BID Amlodipine (Amlodipine Besylate) 10 Mg Tab 10 Mg PO DAILY Clonidine (Clonidine HCl) 0.2 Mg Tab 0.2 Mg PO DAILY Novolin R Inj (Insulin Human Regular) 1,000 Unit/10 Ml Vial 0 SQ DIRECTED Sliding Scale As Directed. Novolin N Inj (Insulin Human NPH) 1,000 Unit/10 Ml Vial 30 Units SQ BIDAC Active Ordered Medications Current Medications Medications (Trade) Dose Ordered Sig/Radha Route Start Time Stop Time Status Last Admin (NS Flush) 2 ml UNSCH PRN IV FLUSH 11/14/16 21:15 (NS Flush) 2 ml BID IV FLUSH 11/15/16 09:00 11/15/16 08:21 (Zofran Inj) 4 mg Q6H PRN IVP 11/14/16 21:15 Naloxone HCl 0.4 mg 0.4 mg UNSCH PRN IV 11/14/16 21:15 (Maxipime Inj/NS Inj) 100 ml @ 200 mls/hr Q24H IV 11/14/16 23:00 11/15/16 00:20 (Norvasc) 10 mg DAILY PO 11/15/16 09:00 11/15/16 08:22 (Abilify) 2 mg DAILY PO 11/15/16 09:00 11/15/16 08:21 (Phoslo) 1,334 mg TID PO 11/15/16 09:00 11/15/16 08:22 (Lasix) 40 mg BID PO 11/14/16 22:30 11/15/16 08:21 (Zoloft) 50 mg DAILY PO 11/15/16 09:00 11/15/16 08:21 (NovoLIN N INJ) 30 units BIDAC SQ 11/15/16 07:00 11/15/16 08:24 (D50w (Vial) Inj) 50 ml UNSCH PRN IV 11/14/16 22:30 (Glucagon Inj) 1 mg UNSCH PRN OTHER 11/14/16 22:30 ([place] 10-325 Mg) 1 tab BID PRN PO 11/14/16 22:30 11/15/16 08:22 (Catapres) 0.1 mg Q12HR PO 11/14/16 22:30 11/15/16 08:21 (Heparin Inj) 5,000 units Q8H SQ 11/15/16 10:00 Family History NC Social History No tobacco use Drinks EtOH socially No illicits (Anu Sexton) Physical Exam Vital Signs Vital Signs Date Time Temp Pulse Resp B/P Pulse Ox O2 Delivery O2 Flow Rate FiO2 11/15/16 08:15 98.1 76 16 158/77 99 11/15/16 08:05 74 11/15/16 04:02 99.4 86 19 132/63 99 11/15/16 00:04 79 11/14/16 23:44 98.7 79 16 153/72 99 11/14/16 21:23 85 18 167/78 100 11/14/16 19:00 88 18 179/81 97 11/14/16 18:27 102 17 99 Room Air 11/14/16 16:07 97.8 102 166/69 99 Physical Exam GENERAL: Sitting on edge of the bed. Says she is feeling better since admission. No further nausea SKIN: Warm and dry. HEAD: Atraumatic. Normocephalic. EYES: Pupils equal and round. No scleral icterus. No injection or drainage. ENT: No nasal bleeding or discharge. Mucous membranes pink and moist. NECK: Trachea midline. No JVD. CARDIOVASCULAR: Regular rate and rhythm. RESPIRATORY: No accessory muscle use. Clear to auscultation. Breath sounds equal bilaterally. GASTROINTESTINAL: Abdomen soft, non-tender, nondistended. Hepatic and splenic margins not palpable. MUSCULOSKELETAL: Extremities without clubbing, cyanosis. Openly draining mass in R groin. Surrounding skin erythematous and indurated. NEUROLOGICAL: Awake and alert. Normal speech. PSYCHIATRIC: Appropriate mood and affect; insight and judgment normal. Laboratory Laboratory Tests Test 11/14/16 11/14/16 11/15/16 18:00 19:30 08:29 White Blood Count 15.8 10.3 Red Blood Count 2.72 2.83 Hemoglobin 8.6 9.1 Hematocrit 26.3 26.8 Mean Corpuscular Volume 96.4 94.8 Mean Corpuscular Hemoglobin 31.6 32.2 Mean Corpuscular Hemoglobin 32.8 34.0 Concent Red Cell Distribution Width 14.3 14.2 Platelet Count 180 156 Mean Platelet Volume 7.6 7.8 Neutrophils (%) (Auto) 89.3 84.9 Lymphocytes (%) (Auto) 5.5 8.9 Monocytes (%) (Auto) 5.0 5.3 Eosinophils (%) (Auto) 0.0 0.5 Basophils (%) (Auto) 0.2 0.4 Neutrophils # (Auto) 14.1 8.8 Lymphocytes # (Auto) 0.9 0.9 Monocytes # (Auto) 0.8 0.5 Eosinophils # (Auto) 0.0 0.0 Basophils # (Auto) 0.0 0.0 CBC Comment DIFF FINAL DIFF FINAL Differential Comment Sodium Level 129 134 Potassium Level 5.7 4.5 Chloride Level 95 96 Carbon Dioxide Level 25.3 26.8 Anion Gap 9 11 Blood Urea Nitrogen 48 57 Creatinine 8.92 10.03 Estimat Glomerular Filtration 5 4 Rate Random Glucose 560 286 Calcium Level 8.7 9.1 Total Bilirubin 0.3 Aspartate Amino Transf 14 (AST/SGOT) Alanine Aminotransferase 16 (ALT/SGPT) Alkaline Phosphatase 121 Total Protein 6.9 Albumin 3.1 Lactic Acid Level 1.5 Date/Time Procedure Status Source Growth 11/14/16 18:30 Aerobic Blood Culture Received Blood Peripheral Pending 11/14/16 18:30 Anaerobic Blood Culture Received Blood Peripheral Pending 11/14/16 18:00 Gram Stain - Final Resulted Wound Groin 11/14/16 18:00 Wound Culture Resulted Wound Groin Pending (Anu Sexton) Result Diagram: 11/15/16 0829 11/15/16 0829 Imaging Last Impressions Lower Extremity CT 11/14/16 0000 Signed Impressions: Service Date/Time: Monday, November 14, 2016 20:00 - CONCLUSION: 1. Marked decrease in size of previous fluid collection in the medial right thigh with some surrounding cellulitis or edema. Drain has been placed. Measurements given above. No new fluid collections. No acute bony abnormality. Abel Redding MD (Anu Sexton) Assessment and Plan Problem List: (1) ESRD (end stage renal disease) on dialysis Plan: Had short HD yesterday. Will plan for 3h treatment today and 3h tomorrow. Continue MWF schedule otherwise Medications should be adjusted for the patient's ESRD. Avoid gadolinium (2) HTN (hypertension) Plan: Continue on home regimen. Adjust if needed after HD (3) DM (diabetes mellitus) Plan: Mgmt as per primary (4) Anemia Plan: Follow CBC. Epo with treatment if needed (5) Cellulitis Plan: Management as per ID and surgery. Drain removed. Cultures pending. (6) Right groin mass (Anu Sexton) Assessment and Plan The exam, history, and the medical decision-making described in the above note were completed with the assistance of the PA-Javon. I reviewed and agree with the findings presented. (Zane Barraza MD) Problem Qualifiers (1) Cellulitis: Qualified Code: L03.115 - Cellulitis of right lower extremity Anu Sexton Nov 15, 2016 10:57 Zane Barraza MD Nov 15, 2016 11:49
[2016-11-15] MEDS ORDERED: SODIUM CHLOR 0.9% 1000 ML INJ 1,000 ML IV PRN ×3 (11:06)
[2016-11-15] MEDS: HEPARIN SODIUM - SQ 10,000 UNITS/ML VIAL SQ SCH ×2 (11:10→19:19)
[2016-11-15] MEDS ORDERED: HEPARIN SODIUM - IV 10,000 UNITS/10 ML VIAL PRN (11:15)
[2016-11-15] MEDS ORDERED: ACETAMINOPHEN 325 MG TAB PO PRN (11:15)
[2016-11-15] MEDS ORDERED: diphenhydrAMINE HCL 25 MG CAP PO PRN (11:15)
[2016-11-15] MEDS ORDERED: cloNIDine HCL 0.1 MG TAB PO PRN (11:15)
[2016-11-15] MEDS ORDERED: ALBUMIN HUMAN 25% 25 GM/100 ML BAGP IV PRN (11:15)
[2016-11-15] MEDS ORDERED: ONDANSETRON HCL 4 MG/2 ML VIAL IV PRN (11:15)
[2016-11-15] MEDS ORDERED: GENTAMICIN SULFATE (DIALYSIS USE ONLY) 20 MG/2 ML VIAL IV PRN (11:15)
[2016-11-15] MEDS ORDERED: EPOETIN ALFA 10,000 UNITS/ML VIAL IV PRN (11:15)
[2016-11-15] MEDS ORDERED: SODIUM CHLORIDE 0.9% FLUSH 10 ML FLUSH IV FLUSH PRN (11:15)
[2016-11-15] MEDS ORDERED: HEPARIN SODIUM - IV 10,000 UNITS/10 ML VIAL IVF PRN (11:15)
[2016-11-15] MEDS ORDERED: GELATIN 12 MM/7 MM FOAM TOP PRN (11:15)
[2016-11-15] MEDS ORDERED: MANNITOL 12.5 GM/50 ML VIAL IV PRN (11:15)
[2016-11-15] MEDS ORDERED: NITROGLYCERIN 0.4 MG SL 25 TABS/BTL SL PRN (11:15)
--- NOTE | 2016-11-15 11:33 | HHI.PR ---
Subjective Remarks Feeling better since yesterday-but still draining from the drain site Objective - Vital Signs Date Time Temp Pulse Resp B/P Pulse Ox O2 Delivery O2 Flow Rate FiO2 11/15/16 11:14 98 11/15/16 08:15 98.1 76 16 158/77 11/14/16 18:27 Room Air Right groin swelling [id number] draining form the previous drain site Result Diagram: 11/15/16 0829 11/15/16 0829 Other Results Last Impressions Lower Extremity CT 11/14/16 0000 Signed Impressions: Service Date/Time: Monday, November 14, 2016 20:00 - CONCLUSION: 1. Marked decrease in size of previous fluid collection in the medial right thigh with some surrounding cellulitis or edema. Drain has been placed. Measurements given above. No new fluid collections. No acute bony abnormality. Abel Redding MD Objective Remarks Reviewed the CT scan-significant improvement of the fluid collection A/P Assessment and Plan Residual fluid collection with secondary cellulitis continue with antibiotics for now will see and assess patient tomorrow. Gayle Ronquillo MD Nov 15, 2016 11:33
[2016-11-15 13:53] LABS: FERRITIN 849 NG/ML (8-252)
[2016-11-15 13:57] LABS: TRANSFERRIN IRON PROFILE 147 MG/DL (200-360)
--- NOTE | 2016-11-15 15:29 | HHI.PR ---
Subjective Remarks Follow-up for right groin abscess/cellulitis Patient stated that it has improved greatly. She has no concern. Denies any pain. She stated that she feels sleepy. Patient remains afebrile. Objective Vitals Vital Signs Date Time Temp Pulse Resp B/P Pulse Ox O2 Delivery O2 Flow Rate FiO2 11/15/16 15:06 98.6 76 18 144/68 98 11/15/16 12:15 97.9 77 18 131/63 99 11/15/16 12:00 83 11/15/16 11:14 98 11/15/16 08:15 98.1 76 16 158/77 99 11/15/16 08:05 74 11/15/16 04:02 99.4 86 19 132/63 99 11/15/16 00:04 79 11/14/16 23:44 98.7 79 16 153/72 99 11/14/16 21:23 85 18 167/78 100 11/14/16 19:00 88 18 179/81 97 11/14/16 18:27 102 17 99 Room Air 11/14/16 16:07 97.8 102 166/69 99 I/O 11/14/16 11/14/16 11/14/16 11/15/16 11/15/16 11/15/16 07:00 15:00 23:00 07:00 15:00 23:00 Intake Total 480 ml Balance 480 ml Intake Oral 480 ml # Voids 1 Result Diagram: 11/15/16 0829 11/15/16 0829 Objective Remarks GENERAL: in NAD SKIN: Right upper inner thigh area with bone with minimal drainage. Positive for induration. Positive for erythema per patient's has improved. HEAD: Normocephalic. EYES: No scleral icterus. No injection or drainage. NECK: Supple, trachea midline. No JVD or lymphadenopathy. CARDIOVASCULAR: Regular rate and rhythm without murmurs, gallops, or rubs. RESPIRATORY: Breath sounds equal bilaterally. No accessory muscle use. GASTROINTESTINAL: Abdomen soft, non-tender, nondistended. MUSCULOSKELETAL: No cyanosis, or edema. BACK: Nontender without obvious deformity. No CVA tenderness. Medications and IVs Current Medications Insulin Human Regular 10 units 10 units ONCE ONCE IV PUSH Last administered on 11/14/16t 21:14; Start 11/14/16 at 20:15; Stop 11/14/16 at 20:16; Status DC Vancomycin HCl/ Sodium Chloride (Vancomycin Inj/ NS 250 ml Inj) 250 ml @ 250 mls/hr ONCE ONCE IV Last administered on 11/14/16 21:12; Start 11/14/16 at 20: 45; Stop 11/14/16 at 21:44; Status DC Sodium Chloride (NS Flush) 2 ml UNSCH PRN IV FLUSH FLUSH AFTER USING IV ACCESS ; Start 11/14/16 at 21:15 Sodium Chloride (NS Flush) 2 ml BID IV FLUSH Last administered on 11/15/16 08: 21; Start 11/15/16 at 09:00 Ondansetron HCl (Zofran Inj) 4 mg Q6H PRN IVP NAUSEA OR VOMITING; Start at 21:15 Naloxone HCl 0.4 mg 0.4 mg UNSCH PRN IV SEE LABEL COMMENTS; Start 11/14/16 at 21 :15 Sodium Chloride 1,000 ml @ 100 mls/hr Q10H IV Last administered on 11/14/16 21 :15; Start 11/14/16 at 21:15; Stop 11/14/16 at 23:59; Status DC Pharmacy Profile Note 0 ml @ 0 mls/hr UNSCH OTHER ; Start 11/14/16 at 21:30; Status Cancel Piperacillin Sod/ Tazobactam Sod (Zosyn 4.5 Gm Premix) 100 ml @ 200 mls/hr Q6H IV ; Start 11/14/16 at 22:00; Stop 11/14/16 at 22:04; Status DC Sodium Polystyrene Sulfonate 30 gm 30 gm ONCE ONCE PO Last administered on 11/14 22:42; Start 11/14/16 at 21:45; Stop 11/14/16 at 21:46; Status DC Cefepime HCl/ Sodium Chloride (Maxipime Inj/NS Inj) 100 ml @ 200 mls/hr Q24H IV Last administered on 11/15/16 00:20; Start 11/14/16 at 23:00 Amlodipine Besylate (Norvasc) 10 mg DAILY PO Last administered on 11/15/16 08: 22; Start 11/15/16 at 09:00 Aripiprazole (Abilify) 2 mg DAILY PO Last administered on 11/15/16 08:21; Start 11/15/16 at 09:00 Calcium Acetate (Phoslo) 1,334 mg TID PO Last administered on 11/15/16 12:25; Start 11/15/16 at 09:00 Furosemide (Lasix) 40 mg BID PO Last administered on 11/15/16 08:21; Start 11/14 at 22:30 Insulin Human NPH (NovoLIN N INJ) 30 units BIDAC SQ ; Start 11/14/16 at 22:30; Stop 11/14/16 at 22:30; Status DC Sertraline HCl (Zoloft) 50 mg DAILY PO Last administered on 11/15/16 08:21; Start 11/15/16 at 09:00 Insulin Human NPH (NovoLIN N INJ) 30 units BIDAC SQ Last administered on 08:24; Start 11/15/16 at 07:00 Dextrose (D50w (Vial) Inj) 50 ml UNSCH PRN IV HYPOGLYCEMIA-SEE COMMENTS; Start 11/14/16 at 22:30 Glucagon (Glucagon Inj) 1 mg UNSCH PRN OTHER HYPOGLYCEMIA-SEE COMMENTS; Start 11/14/16 at 22:30 Insulin Human Regular (NovoLIN R SUPPLEMENTAL SCALE) 1 ACHS SLIDING SCALE SQ Last administered on 11/15/16 11:00; Start 11/15/16 at 07:00 Acetaminophen/ Hydrocodone Bitart ([place] 10-325 Mg) 1 tab BID PRN PO PAIN 1 - 10 Last administered on 11/15/16 08:22; Start 11/14/16 at 22:30 Clonidine (Catapres) 0.1 mg Q12HR PO Last administered on 11/15/16 08:21; Start 11/14/16 at 22:30 Heparin Sodium (Porcine) (Heparin Inj) 5,000 units Q8HR SQ Last administered on 11/15/16 02:10; Start 11/15/16 at 02:00; Stop 11/15/16 at 02:17; Status DC Heparin Sodium (Porcine) 5000 units 5,000 units Q8H SQ Last administered on 11/15 11:10; Start 11/15/16 at 10:00 Sodium Chloride (NS 1000 ml Inj) 1,000 ml @ 0 mls/hr Q0M PRN IV For Prime & Rinse Back; Start 11/15/16 at 11:06 Heparin Sodium (Porcine) 8000 units 8,000 units UNSCH PRN IVF WITH DIALYSIS; Start 11/15/16 at 11:15 Sodium Chloride 1,000 ml @ 200 mls/hr Q5H PRN IV WITH DIALYSIS; Start 11/15/16 at 11:06 Sodium Chloride (NS 1000 ml Inj) 1,000 ml @ 0 mls/hr Q0M PRN IV WITH DIALYSIS; Start 11/15/16 at 11:06 Mannitol (Mannitol Inj) 12.5 gm UNSCH PRN IV WITH DIALYSIS; Start 11/15/16 at 11 :15 Albumin Human (Albumin 25% Inj) 25 gm UNSCH PRN IV WITH DIALYSIS; Start at 11:15 Sodium Chloride (NS Flush) 5 ml UNSCH PRN IV FLUSH WITH DIALYSIS; Start at 11:15 Heparin Sodium (Porcine) (Heparin Inj) UNSCH PRN .XX WITH DIALYSIS; Start 11/15 at 11:15 Gentamicin Sulfate (Gentamicin (Dialysis) Inj) 20 mg UNSCH PRN IV WITH DIALYSIS ; Start 11/15/16 at 11:15 Ondansetron HCl (Zofran Inj) 4 mg UNSCH PRN IV WITH DIALYSIS; Start 11/15/16 at 11:15 Acetaminophen (Tylenol) 650 mg UNSCH PRN PO for headach, pain, temp > 101F; Start 11/15/16 at 11:15 Diphenhydramine HCl (Benadryl) 25 mg UNSCH PRN PO for hives/itching/anaphylaxis ; Start 11/15/16 at 11:15 Nitroglycerin (Nitrostat Sl) 0.4 mg UNSCH PRN SL CHEST PAIN; Start 11/15/16 at 11:15 Clonidine (Catapres) 0.1 mg UNSCH PRN PO for BP > 180/100 X 2 readings; Start 11/15/16 at 11:15 Epoetin Steve (Epogen Inj) 2,000 units UNSCH PRN IV WITH DIALYSIS; Start at 11:15 Gelatin (Gelfoam 12 Mm/7 Mm Top) 1 foam UNSCH PRN TOP SEE LABEL COMMENTS; Start 11/15/16 at 11:15 A/P Problem List: (1) Cellulitis ICD Code: L03.90 Status: Acute (2) Type 1 diabetes mellitus ICD Code: E10.9 Status: Chronic (3) ESRD (end stage renal disease) on dialysis ICD Code: N18.6 Status: Chronic Assessment and Plan 35 y/o female with ESRD on HD who had a revision of her left arm fistula with a right thigh saphenous vein harvest for grafting on 10/18 with subsequent lymphatic leak requiring [place] drain placement by Dr. Bernstein on 11/05 here with infection of the surgical site. Cellulitis, Infected surgical site - suspect possible abscess vs infected seroma - Right CT of femur without IV contrast - marked decrease in size of previous fluid collection in the medial right thigh with some surrounding cellulitis or edema. Drain noted. No new fluid collections. No acute bony abnormality. - Antibiotics: IV Vancomycin and Cefepime - Dr. Ronquillo of general surgery stated to continue with current IV antibiotics. Leukocytosis is improving and per patient clinically she is improving. - Continue home [place] 10/325 mg BID p.o. PRN 1-10 ESRD on hemodialysis, chronic - Consult Dr. Barraza - appreciate assistance with vancomycin dosing and monitoring and for HD - avoid nephrotoxins - monitor BMP Type 1 diabetes mellitus, chronic with acute hyperglycemia - Blood glucose was 560 on admission - Given Regular insulin 10 units IV in ED -Continue home NPH. - Accu-Cheks before meals and at bedtime with low-dose NovoLog sliding scale coverage - Hypoglycemia protocol - Monitor trends and blood glucose readings and adjust treatments as indicated Hypertension, poorly controlled - BP 166/69 on admission. Better controlled. - Continue her current regimen. DVT prophylaxis - Heparin 5000 units subq q8h Problem Qualifiers (1) Cellulitis: Qualified Code: L03.115 - Cellulitis of right lower extremity (2) Type 1 diabetes mellitus: Qualified Code: E10.22 - Type 1 diabetes mellitus with chronic kidney disease on chronic dialysis Chanel Rollins MD Nov 15, 2016 15:29
[2016-11-16] VITALS (8 sets, daily range): BP systolic 118–141; BP diastolic 55–71; PULSE 66–78; RESP 17–20; TEMP 97.2–98.7; O2SAT 98–100
[2016-11-16] MEDS: HEPARIN SODIUM - SQ 10,000 UNITS/ML VIAL SQ SCH ×3 (02:00→18:21)
[2016-11-16 05:53] LABS: HEMATOCRIT 26.5 % (35.0-46.0); MEAN CORPUSCULAR HEMOGLOBIN 31.9 PG (27.0-34.0); MEAN CORPUSCULAR HGB CONC 33.6 % (32.0-36.0); PLATELET COUNT 158 TH/MM3 (150-450); RED BLOOD COUNT 2.79 MIL/MM3 (4.00-5.30); RED CELL DISTRIBUTION WIDTH 14.3 % (11.6-17.2); REVIEW FLAG FINAL; WHITE BLOOD COUNT 7.2 TH/MM3 (4.0-11.0)
[2016-11-16 06:23] LABS: BICARBONATE 31.1 MEQ/L (21.0-32.0); POTASSIUM 3.8 MEQ/L (3.5-5.1)
[2016-11-16] MEDS: INSULIN HUMAN NPH 1,000 UNITS/10 ML VIAL SQ SCH ×2 (06:41→17:00)
[2016-11-16] MEDS: INSULIN NovoLIN REGULAR SUPPLEMENTAL SCALE SQ SCH ×4 (06:41→21:00)
[2016-11-16] MEDS: SODIUM CHLORIDE 0.9% FLUSH 10 ML FLUSH IV FLUSH SCH ×2 (09:49→20:58)
[2016-11-16] MEDS: FUROSEMIDE 40 MG TAB PO SCH ×2 (09:49→20:58)
[2016-11-16] MEDS: CALCIUM ACETATE 667 MG CAP PO SCH ×3 (09:49→18:21)
[2016-11-16] MEDS: SERTRALINE HCL 50 MG TAB PO SCH (09:49)
[2016-11-16] MEDS: ARIPiprazole 2 MG TAB PO SCH (09:49)
[2016-11-16] MEDS: cloNIDine HCL 0.1 MG TAB PO SCH ×2 (09:49→20:58)
[2016-11-16] MEDS: ACETAMINOPHEN/HYDROcodone 325 MG/10 MG TAB PO PRN ×2 (09:54→21:00)
--- NOTE | 2016-11-16 13:08 | HHI.PR ---
Subjective Remarks f/u for right groin infection patient has no complaints. She remains afebrile. she stated that she was told by staff that she is going home today. patient stated she was concern about that. denied any worsening of symptoms. Objective Vitals Vital Signs Date Time Temp Pulse Resp B/P Pulse Ox O2 Delivery O2 Flow Rate FiO2 11/16/16 11:33 98.7 75 20 133/66 99 11/16/16 09:56 21 11/16/16 08:05 97.9 70 20 139/67 98 11/16/16 05:30 98.1 66 17 121/55 99 11/15/16 23:16 98.7 80 17 140/60 98 11/15/16 23:14 72 11/15/16 19:36 97.8 80 18 178/77 100 11/15/16 19:32 21 11/15/16 15:06 98.6 76 18 144/68 98 I/O 11/15/16 11/15/16 11/15/16 11/16/16 11/16/16 11/16/16 07:00 15:00 23:00 07:00 15:00 23:00 Intake Total 480 ml Output Total 3000 ml Balance 480 ml -3000 ml Intake Oral 480 ml Output Hemodialysis 3000 ml # Voids 1 Result Diagram: 11/16/16 0503 11/16/16 0503 Objective Remarks GENERAL: in NAD SKIN: Right upper inner thigh area with bone with minimal drainage. Positive for induration. Positive for erythema per patient's has improved. HEAD: Normocephalic. EYES: No scleral icterus. No injection or drainage. NECK: Supple, trachea midline. No JVD or lymphadenopathy. CARDIOVASCULAR: Regular rate and rhythm without murmurs, gallops, or rubs. RESPIRATORY: Breath sounds equal bilaterally. No accessory muscle use. GASTROINTESTINAL: Abdomen soft, non-tender, nondistended. MUSCULOSKELETAL: No cyanosis, or edema. BACK: Nontender without obvious deformity. No CVA tenderness. Medications and IVs Current Medications Insulin Human Regular 10 units 10 units ONCE ONCE IV PUSH Last administered on 11/14/16t 21:14; Start 11/14/16 at 20:15; Stop 11/14/16 at 20:16; Status DC Vancomycin HCl/ Sodium Chloride (Vancomycin Inj/ NS 250 ml Inj) 250 ml @ 250 mls/hr ONCE ONCE IV Last administered on 11/14/16 21:12; Start 11/14/16 at 20: 45; Stop 11/14/16 at 21:44; Status DC Sodium Chloride (NS Flush) 2 ml UNSCH PRN IV FLUSH FLUSH AFTER USING IV ACCESS Last administered on 11/15/16 22:20; Start 11/14/16 at 21:15 Sodium Chloride (NS Flush) 2 ml BID IV FLUSH Last administered on 11/16/16 09: 49; Start 11/15/16 at 09:00 Ondansetron HCl (Zofran Inj) 4 mg Q6H PRN IVP NAUSEA OR VOMITING; Start at 21:15 Naloxone HCl 0.4 mg 0.4 mg UNSCH PRN IV SEE LABEL COMMENTS; Start 11/14/16 at 21 :15 Sodium Chloride 1,000 ml @ 100 mls/hr Q10H IV Last administered on 11/14/16 21 :15; Start 11/14/16 at 21:15; Stop 11/14/16 at 23:59; Status DC Pharmacy Profile Note 0 ml @ 0 mls/hr UNSCH OTHER ; Start 11/14/16 at 21:30; Status Cancel Piperacillin Sod/ Tazobactam Sod (Zosyn 4.5 Gm Premix) 100 ml @ 200 mls/hr Q6H IV ; Start 11/14/16 at 22:00; Stop 11/14/16 at 22:04; Status DC Sodium Polystyrene Sulfonate 30 gm 30 gm ONCE ONCE PO Last administered on 11/14 22:42; Start 11/14/16 at 21:45; Stop 11/14/16 at 21:46; Status DC Cefepime HCl/ Sodium Chloride (Maxipime Inj/NS Inj) 100 ml @ 200 mls/hr Q24H IV Last administered on 11/15/16 22:21; Start 11/14/16 at 23:00 Amlodipine Besylate (Norvasc) 10 mg DAILY PO Last administered on 11/16/16 09: 49; Start 11/15/16 at 09:00 Aripiprazole (Abilify) 2 mg DAILY PO Last administered on 11/16/16 09:49; Start 11/15/16 at 09:00 Calcium Acetate (Phoslo) 1,334 mg TID PO Last administered on 11/16/16 09:49; Start 11/15/16 at 09:00 Furosemide (Lasix) 40 mg BID PO Last administered on 11/16/16 09:49; Start 11/14 at 22:30 Insulin Human NPH (NovoLIN N INJ) 30 units BIDAC SQ ; Start 11/14/16 at 22:30; Stop 11/14/16 at 22:30; Status DC Sertraline HCl (Zoloft) 50 mg DAILY PO Last administered on 11/16/16 09:49; Start 11/15/16 at 09:00 Insulin Human NPH (NovoLIN N INJ) 30 units BIDAC SQ Last administered on 19:19; Start 11/15/16 at 07:00 Dextrose (D50w (Vial) Inj) 50 ml UNSCH PRN IV HYPOGLYCEMIA-SEE COMMENTS; Start 11/14/16 at 22:30 Glucagon (Glucagon Inj) 1 mg UNSCH PRN OTHER HYPOGLYCEMIA-SEE COMMENTS; Start 11/14/16 at 22:30 Insulin Human Regular (NovoLIN R SUPPLEMENTAL SCALE) 1 ACHS SLIDING SCALE SQ Last administered on 11/15/16 21:00; Start 11/15/16 at 07:00 Acetaminophen/ Hydrocodone Bitart ([place] 10-325 Mg) 1 tab BID PRN PO PAIN 1 - 10 Last administered on 11/16/16 09:54; Start 11/14/16 at 22:30 Clonidine (Catapres) 0.1 mg Q12HR PO Last administered on 11/16/16 09:49; Start 11/14/16 at 22:30 Heparin Sodium (Porcine) (Heparin Inj) 5,000 units Q8HR SQ Last administered on 11/15/16 02:10; Start 11/15/16 at 02:00; Stop 11/15/16 at 02:17; Status DC Heparin Sodium (Porcine) 5000 units 5,000 units Q8H SQ Last administered on 11/16 09:48; Start 11/15/16 at 10:00 Sodium Chloride (NS 1000 ml Inj) 1,000 ml @ 0 mls/hr Q0M PRN IV For Prime & Rinse Back; Start 11/15/16 at 11:06 Heparin Sodium (Porcine) 8000 units 8,000 units UNSCH PRN IVF WITH DIALYSIS; Start 11/15/16 at 11:15 Sodium Chloride 1,000 ml @ 200 mls/hr Q5H PRN IV WITH DIALYSIS; Start 11/15/16 at 11:06 Sodium Chloride (NS 1000 ml Inj) 1,000 ml @ 0 mls/hr Q0M PRN IV WITH DIALYSIS; Start 11/15/16 at 11:06 Mannitol (Mannitol Inj) 12.5 gm UNSCH PRN IV WITH DIALYSIS; Start 11/15/16 at 11 :15 Albumin Human (Albumin 25% Inj) 25 gm UNSCH PRN IV WITH DIALYSIS; Start at 11:15 Sodium Chloride (NS Flush) 5 ml UNSCH PRN IV FLUSH WITH DIALYSIS; Start at 11:15 Heparin Sodium (Porcine) (Heparin Inj) UNSCH PRN .XX WITH DIALYSIS; Start 11/15 at 11:15 Gentamicin Sulfate (Gentamicin (Dialysis) Inj) 20 mg UNSCH PRN IV WITH DIALYSIS ; Start 11/15/16 at 11:15 Ondansetron HCl (Zofran Inj) 4 mg UNSCH PRN IV WITH DIALYSIS; Start 11/15/16 at 11:15 Acetaminophen (Tylenol) 650 mg UNSCH PRN PO for headach, pain, temp > 101F; Start 11/15/16 at 11:15 Diphenhydramine HCl (Benadryl) 25 mg UNSCH PRN PO for hives/itching/anaphylaxis ; Start 11/15/16 at 11:15 Nitroglycerin (Nitrostat Sl) 0.4 mg UNSCH PRN SL CHEST PAIN; Start 11/15/16 at 11:15 Clonidine (Catapres) 0.1 mg UNSCH PRN PO for BP > 180/100 X 2 readings; Start 11/15/16 at 11:15 Epoetin Steve (Epogen Inj) 2,000 units UNSCH PRN IV WITH DIALYSIS; Start at 11:15 Gelatin (Gelfoam 12 Mm/7 Mm Top) 1 foam UNSCH PRN TOP SEE LABEL COMMENTS; Start 11/15/16 at 11:15 A/P Problem List: (1) Cellulitis ICD Code: L03.90 Status: Acute (2) Type 1 diabetes mellitus ICD Code: E10.9 Status: Chronic (3) ESRD (end stage renal disease) on dialysis ICD Code: N18.6 Status: Chronic Assessment and Plan 35 y/o female with ESRD on HD who had a revision of her left arm fistula with a right thigh saphenous vein harvest for grafting on 10/18 with subsequent lymphatic leak requiring [place] drain placement by Dr. Bernstein on 11/05 here with infection of the surgical site. Cellulitis, Infected surgical site - suspect possible abscess vs infected seroma - Right CT of femur without IV contrast - marked decrease in size of previous fluid collection in the medial right thigh with some surrounding cellulitis or edema. Drain noted. No new fluid collections. No acute bony abnormality. - Antibiotics: IV Vancomycin and Cefepime - Dr. Ronquillo of general surgery stated to continue with current IV antibiotics. Leukocytosis is improving and per patient clinically she is improving. - Continue home [place] 10/325 mg BID p.o. PRN 1-10 -wound cultures grew MRSA and group B beta strep. -pending recommendations today from surgery before transitioning to oral medication. ESRD on hemodialysis, chronic - Consult Dr. Barraza - appreciate assistance with vancomycin dosing and monitoring and for HD - avoid nephrotoxins - monitor BMP Type 1 diabetes mellitus, chronic with acute hyperglycemia - Blood glucose was 560 on admission - Given Regular insulin 10 units IV in ED -Continue home NPH. - Accu-Cheks before meals and at bedtime with low-dose NovoLog sliding scale coverage - Hypoglycemia protocol - Monitor trends and blood glucose readings and adjust treatments as indicated Hypertension -controlled. - Continue her current regimen. DVT prophylaxis - Heparin 5000 units subq q8h Problem Qualifiers (1) Cellulitis: Qualified Code: L03.115 - Cellulitis of right lower extremity (2) Type 1 diabetes mellitus: Qualified Code: E10.22 - Type 1 diabetes mellitus with chronic kidney disease on chronic dialysis Chanel Rollins MD Nov 16, 2016 13:07
--- NOTE | 2016-11-16 19:15 | HHI.NPPN ---
Subjective History of Present Illness The patient is a 35 yo AA female who is known to our services for ESRD on HD. She came back to the ED yesterday as she was having continued pain and discharge from R groin drain from vein harvesting that was performed 10/18. Was admitted on 11/05 for pain and swelling in her groin and subsequently had to have [place] drain placed. Was discharged with drain, but had continued pain and developed odor to her drain. In ED, drain was removed. Had HD yesterday as per regular schedule, but only ran short treatment. Interval History Reports wound still draining. No longer systemically ill (i.e. no nausea, no vomiting, no fever, good appetite ). Objective Data Data 11/15/16 11/16/16 18:59 06:59 Intake Total 480 ml Output Total 3000 ml Balance -2520 ml Intake Oral 480 ml Output Hemodialysis 3000 ml # Voids 1 Vital Signs Date Time Temp Pulse Resp B/P Pulse Ox O2 Delivery O2 Flow Rate FiO2 11/16/16 16:15 98.6 77 18 132/71 98 11/16/16 11:33 98.7 75 20 133/66 99 11/16/16 09:56 21 11/16/16 09:45 71 11/16/16 08:05 97.9 70 20 139/67 98 11/16/16 05:30 98.1 66 17 121/55 99 11/15/16 23:16 98.7 80 17 140/60 98 11/15/16 23:14 72 11/15/16 19:36 97.8 80 18 178/77 100 11/15/16 19:32 21 -: 11/16/16 0503 11/16/16 0503 Imaging Last Impressions Lower Extremity CT 11/14/16 0000 Signed Impressions: Service Date/Time: Monday, November 14, 2016 20:00 - CONCLUSION: 1. Marked decrease in size of previous fluid collection in the medial right thigh with some surrounding cellulitis or edema. Drain has been placed. Measurements given above. No new fluid collections. No acute bony abnormality. Abel Redding MD Medication Review Current Medications Medications (Trade) Dose Ordered Sig/Radha Route Start Time Stop Time Status Last Admin (NS Flush) 2 ml UNSCH PRN IV FLUSH 11/14/16 21:15 11/15/16 22:20 (NS Flush) 2 ml BID IV FLUSH 11/15/16 09:00 11/16/16 09:49 (Zofran Inj) 4 mg Q6H PRN IVP 11/14/16 21:15 Naloxone HCl 0.4 mg 0.4 mg UNSCH PRN IV 11/14/16 21:15 (Maxipime Inj/NS Inj) 100 ml @ 200 mls/hr Q24H IV 11/14/16 23:00 11/15/16 22:21 (Norvasc) 10 mg DAILY PO 11/15/16 09:00 11/16/16 09:49 (Abilify) 2 mg DAILY PO 11/15/16 09:00 11/16/16 09:49 (Phoslo) 1,334 mg TID PO 11/15/16 09:00 11/16/16 18:21 (Lasix) 40 mg BID PO 11/14/16 22:30 11/16/16 09:49 (Zoloft) 50 mg DAILY PO 11/15/16 09:00 11/16/16 09:49 (NovoLIN N INJ) 30 units BIDAC SQ 11/15/16 07:00 11/16/16 17:00 (D50w (Vial) Inj) 50 ml UNSCH PRN IV 11/14/16 22:30 (Glucagon Inj) 1 mg UNSCH PRN OTHER 11/14/16 22:30 ([place] 10-325 Mg) 1 tab BID PRN PO 11/14/16 22:30 11/16/16 09:54 (Catapres) 0.1 mg Q12HR PO 11/14/16 22:30 11/16/16 09:49 Heparin Sodium (Porcine) 5000 units 5,000 units Q8H SQ 11/15/16 10:00 11/16/16 18:21 (NS 1000 ml Inj) 1,000 ml @ 0 mls/hr Q0M PRN IV 11/15/16 11:06 Heparin Sodium (Porcine) 8000 units 8,000 units UNSCH PRN IVF 11/15/16 11:15 Sodium Chloride 1,000 ml @ 200 mls/hr Q5H PRN IV 11/15/16 11:06 (NS 1000 ml Inj) 1,000 ml @ 0 mls/hr Q0M PRN IV 11/15/16 11:06 (Mannitol Inj) 12.5 gm UNSCH PRN IV 11/15/16 11:15 (Albumin 25% Inj) 25 gm UNSCH PRN IV 11/15/16 11:15 (NS Flush) 5 ml UNSCH PRN IV FLUSH 11/15/16 11:15 (Heparin Inj) UNSCH PRN .XX 11/15/16 11:15 (Gentamicin (Dialysis) Inj) 20 mg UNSCH PRN IV 11/15/16 11:15 (Zofran Inj) 4 mg UNSCH PRN IV 11/15/16 11:15 (Tylenol) 650 mg UNSCH PRN PO 11/15/16 11:15 11/16/16 16:59 (Benadryl) 25 mg UNSCH PRN PO 11/15/16 11:15 (Nitrostat Sl) 0.4 mg UNSCH PRN SL 11/15/16 11:15 (Catapres) 0.1 mg UNSCH PRN PO 11/15/16 11:15 (Epogen Inj) 2,000 units UNSCH PRN IV 11/15/16 11:15 (Gelfoam 12 Mm/7 Mm Top) 1 foam UNSCH PRN TOP 11/15/16 11:15 Physical Exam General Appearance: No Acute Distress Eyes Eye Exam: Pupils Equal, Pupils Reactive Throat Throat Exam: Oral Mucosa [place] & Moist Neck Neck Exam: Neck Supple, Trachea Midline Pulmonary Resp Exam: Clear Bilaterally, Breath Sounds Equal Cardiology CV Exam: Regular, Normal Sinus Rhythm Gastrointestinal/Abdomen GI Exam: Soft, Non-Tender Integumentary Skin Exam: Clear, Warm, Lesion(s) (R groin wound with dressing covering. No longer malodorous) Extremeties Extremities Exam: Trace Edema (bilat ankles and facial) Neurologic Neuro Exam: Alert, Awake Psychiatric Psych Exam: Appropriate Responses Assessment/Plan Problem List: (1) ESRD (end stage renal disease) on dialysis Plan: Continue MWF Next HD Monday Medications should be adjusted for the patient's ESRD. Avoid gadolinium (2) HTN (hypertension) Plan: Continue on home regimen. (3) DM (diabetes mellitus) Plan: Mgmt as per primary (4) Anemia Plan: Follow CBC. Epo with treatment if needed (5) Cellulitis Plan: On abx therapy. Drain removed. Cultures resulted as staph and strep Awaiting surgical opinion (6) Right groin mass Problem Qualifiers (1) Cellulitis: Qualified Code: L03.115 - Cellulitis of right lower extremity Anu Sexton Nov 16, 2016 19:15
[2016-11-16] MEDS: CEFEPIME INJ 1,000 MG in SODIUM CHLORIDE 0.9% INJ 100 ML IV SCH (23:00)
[2016-11-17] MEDS: HEPARIN SODIUM - SQ 10,000 UNITS/ML VIAL SQ SCH ×2 (01:09→09:27)
[2016-11-17 02:25] VITALS: PULSE 75
[2016-11-17 03:51] VITALS: BP 124/58; PULSE 70; RESP 17; TEMP 98.3; O2SAT 98
[2016-11-17 06:50] LABS: BICARBONATE 29.7 MEQ/L (21.0-32.0); POTASSIUM 3.6 MEQ/L (3.5-5.1)
[2016-11-17] MEDS: INSULIN NovoLIN REGULAR SUPPLEMENTAL SCALE SQ SCH ×2 (06:55→11:12)
[2016-11-17] MEDS: INSULIN HUMAN NPH 1,000 UNITS/10 ML VIAL SQ SCH (06:55)
[2016-11-17 07:36] VITALS: BP 148/69; PULSE 71; RESP 18; TEMP 98.1; O2SAT 98
[2016-11-17 08:02] VITALS: O2SAT 98
[2016-11-17] MEDS: ARIPiprazole 2 MG TAB PO SCH (09:29)
[2016-11-17 09:30] VITALS: PULSE 71
[2016-11-17] MEDS: cloNIDine HCL 0.1 MG TAB PO SCH (09:30)
[2016-11-17] MEDS: FUROSEMIDE 40 MG TAB PO SCH (09:30)
[2016-11-17] MEDS: SERTRALINE HCL 50 MG TAB PO SCH (09:30)
[2016-11-17] MEDS: CALCIUM ACETATE 667 MG CAP PO SCH ×2 (09:31→13:55)
[2016-11-17] MEDS: ACETAMINOPHEN/HYDROcodone 325 MG/10 MG TAB PO PRN (09:32)
[2016-11-17] MEDS: SODIUM CHLORIDE 0.9% FLUSH 10 ML FLUSH IV FLUSH SCH (09:33)
[2016-11-17 11:24] VITALS: BP 140/65; PULSE 71; RESP 18; TEMP 98; O2SAT 97
[2016-11-17] MEDS ORDERED: NOVONP2 SQ (12:59)
[2016-11-17] MEDS ORDERED: NOVO7030P2 SQ (12:59)
[2016-11-17] MEDS ORDERED: CLON.1 PO (12:59)
[2016-11-17] MEDS ORDERED: CEPH-460 PO (13:03)
[2016-11-17] MEDS ORDERED: DOXY100T PO (13:03)
--- NOTE | 2016-11-17 13:03 | HHI.DCPOC ---
Discharge Care Plan Diagnosis: (1) Cellulitis (2) ESRD (end stage renal disease) on dialysis Goals to Promote Your Health * To prevent worsening of your condition and complications * To maintain your health at the optimal level Directions to Meet Your Goals Take your medications as prescribed Follow your dietary instruction Follow activity as directed Keep your appointments as scheduled Take your immunizations and boosters as scheduled If your symptoms worsen call your PCP, if no PCP go to Urgent Care Center or Emergency Room Smoking is Dangerous to Your Health. Avoid second hand smoke Call the 24-hour hour crisis hotline for domestic abuse at Chanel Rollins MD Nov 17, 2016 13:03
--- NOTE | 2016-11-17 13:15 | HHI.DS ---
Discharge Summary Admission Date Nov 14, 2016 at 21:04 Admitting Diagnosis right groin cellulitis, hyperglycemia (1) Cellulitis ICD Code: L03.90 (2) Type 1 diabetes mellitus ICD Code: E10.9 (3) ESRD (end stage renal disease) on dialysis ICD Code: N18.6 Brief History - From Admission Written by Cassia Kong, acting as scribe for Dr. Waddell on 11/14/16 at 22:08. The patient is seen in the ED. On November 05, she had a drainage tube placed ( for lymphatic fluid collection) following right saphenous vein harvesting on (by Dr. Rock) for fistula revision to left upper extremity for hemodialysis. She was re-admitted 11/05/16 and discharged 11/08/16 following placement of the (Vantage) drain for lymphatic fluid collection in right groin. Dr. Zapata was the surgeon. Current symptoms: Blood sugars running high, vomiting multiple episodes overnight - emesis was clear, area swollen with yellowish drainage. The drainage had been clear previously. She had a fever at hemodialysis. Denies black or red stool, chest pain, syncope. She reports shortness of breath after dialysis and two episodes of diarrhea. Denies being on antibiotics at home. Denies dysuria, hematuria or cough. Dr. Barraza is her electrical design engineer. CBC/BMP: 11/16/16 0503 11/17/16 0600 Significant Findings Laboratory Tests Test 11/14/16 11/15/16 11/16/16 11/17/16 18:00 08:29 05:03 06:00 White Blood Count 15.8 TH/MM3 (4.0-11.0) Red Blood Count 2.72 MIL/MM3 2.83 MIL/MM3 2.79 MIL/MM3 (4.00-5.30) (4.00-5.30) (4.00-5.30) Hemoglobin 8.6 GM/DL 9.1 GM/DL 8.9 GM/DL (11.6-15.3) (11.6-15.3) (11.6-15.3) Hematocrit 26.3 % 26.8 % 26.5 % (35.0-46.0) (35.0-46.0) (35.0-46.0) Neutrophils (%) (Auto) 89.3 % 84.9 % (16.0-70.0) (16.0-70.0) Lymphocytes (%) (Auto) 5.5 % 8.9 % (9.0-44.0) (9.0-44.0) Neutrophils # (Auto) 14.1 TH/MM3 8.8 TH/MM3 (1.8-7.7) (1.8-7.7) Lymphocytes # (Auto) 0.9 TH/MM3 0.9 TH/MM3 (1.0-4.8) (1.0-4.8) Sodium Level 129 MEQ/L 134 MEQ/L 135 MEQ/L (136-145) (136-145) (136-145) Potassium Level 5.7 MEQ/L (3.5-5.1) Chloride Level 95 MEQ/L 96 MEQ/L 96 MEQ/L (98-107) (98-107) (98-107) Blood Urea Nitrogen 48 MG/DL (7-18) 57 MG/DL (7-18) 42 MG/DL (7-18) 37 MG/DL (7- 18) Creatinine 8.92 MG/DL 10.03 MG/DL 7.65 MG/DL 6.28 MG/DL (0.50-1.00) (0.50-1.00) (0.50-1.00) (0.50-1.00) Estimat Glomerular Filtration 5 ML/MIN (>89) 4 ML/MIN (>89) 6 ML/MIN (>89) 8 ML/ MIN (>89) Rate Random Glucose 560 MG/DL 286 MG/DL 132 MG/DL 63 MG/DL (74-106) (74-106) (74-106) (74-106) Aspartate Amino Transf 14 U/L (15-37) (AST/SGOT) Alkaline Phosphatase 121 U/L (45-117) Albumin 3.1 GM/DL 2.9 GM/DL 2.9 GM/DL (3.4-5.0) (3.4-5.0) (3.4-5.0) Iron Level 24 MCG/DL (50-170) Total Iron Binding Capacity 206 MCG/DL (250-450) Percent Iron Saturation 11.7 % (20-50) Ferritin 849 NG/ML (8-252) Calcium Level 8.4 MG/DL (8.5-10.1) PE at Discharge GENERAL: in NAD SKIN: Right upper inner thigh area with bone with minimal drainage. Positive for induration. Positive for erythema per patient's has improved. HEAD: Normocephalic. EYES: No scleral icterus. No injection or drainage. NECK: Supple, trachea midline. No JVD or lymphadenopathy. CARDIOVASCULAR: Regular rate and rhythm without murmurs, gallops, or rubs. RESPIRATORY: Breath sounds equal bilaterally. No accessory muscle use. GASTROINTESTINAL: Abdomen soft, non-tender, nondistended. MUSCULOSKELETAL: No cyanosis, or edema. BACK: Nontender without obvious deformity. No CVA tenderness. Pt Condition on Discharge: Stable Discharge Disposition: Discharge Home Discharge Instructions DIET: Follow Instructions for: As Tolerated, No Restrictions, Heart Healthy Diet Activities you can perform: Regular-No Restrictions Chanel Rollins MD Nov 17, 2016 13:15
[2016-11-17] MEDS ORDERED: INSULIN HUMAN NPH/R 70/30 1,000 UNITS/10 ML VIAL SQ SCH (17:00)
[2016-11-18] MEDS ORDERED: INSULIN HUMAN NPH 1,000 UNITS/10 ML VIAL SQ SCH (07:00)
== END 2016-11-17 17:00 | disposition home or self-care (01) | DRG 862 ==
LOC: NEPC 16:05 → NEDA 21:04 → NEPGCP 22:55
PROVIDERS: ADMIT Family Medicine; ATTEND Family Medicine
DX: T81.4XXA Infection following a procedure, initial encounter (principal); N18.6 End stage renal disease; I13.2 Hypertensive heart and chronic kidney disease with heart failure and with stage 5 chronic kidney disease, or end stage renal disease; J81.1 Chronic pulmonary edema; L03.314 Cellulitis of groin; I82.409 Acute embolism and thrombosis of unspecified deep veins of unspecified lower extremity; L03.115 Cellulitis of right lower limb; N25.81 Secondary hyperparathyroidism of renal origin; L02.214 Cutaneous abscess of groin; E10.22 Type 1 diabetes mellitus with diabetic chronic kidney disease; Z99.2 Dependence on renal dialysis; I50.9 Heart failure, unspecified; E10.65 Type 1 diabetes mellitus with hyperglycemia; J44.9 Chronic obstructive pulmonary disease, unspecified; I25.10 Atherosclerotic heart disease of native coronary artery without angina pectoris; D64.9 Anemia, unspecified; Z79.4 Long term (current) use of insulin; Z86.73 Personal history of transient ischemic attack (TIA), and cerebral infarction without residual deficits; K76.9 Liver disease, unspecified; R56.9 Unspecified convulsions; A49.01 Methicillin susceptible Staphylococcus aureus infection, unspecified site
CPT/HCPCS: 73700; 80048; 80053; 80069; 82728; 82948; 83540; 83550; 83605; 84703; 85025; 85027; 86403; 87040; 87070; 87147; 87184; 87186; 87205; 90935; 96374; J0692; J1644; J1815; J3370; J7030; J7050

== ENCOUNTER 2016-12-25 19:04 | Emergency (ER) | payer MEDICARE, OTHER ==
[~2016-12-25] VITALS: Ht 157.5 cm; Wt 99.0 kg
[~2016-12-25 19:04] MED LIST changes: +CEPH-460 PO; +CLON.1 PO; -CLON0.2T PO; +DOXY100T PO; -GENT0.1C TOPICAL; -HYDR-3533 PO; -HYDR-3583 PO; +NOVO7030P2 SQ
[2016-12-25 19:09] VITALS: BP 156/74; PULSE 83; RESP 16; TEMP 98.6; O2SAT 99
--- NOTE | 2016-12-25 20:49 | PD ---
HPI Chief Complaint: Wound/Suture/Staple Re-Check Time Seen by Provider: 20:34 Travel History International Travel<30 days: No Contact w/Intl Traveler<30days: No Traveled to known affect area: No History of Present Illness HPI 36 YO F with PMH of ESRD, dialysis /, followed by Dr. Barraza presents to the ED for evaluation of 3 day history of pain and swelling of the left hand. Onset shortly after EMS placed an IV at the site. She denies fevers, chills, nausea, vomiting, numbness, tingling, weakness or limitation to ROM of the affected extremity. She states that she is concerned because her AV fistula is in the left hand. She states that she had an episode of hypoglycemia and was unconscious when the EMS inserted the IV. PFSH Past Medical History Arthritis: No Asthma: No Autoimmune Disease: No Blood Disorders: No Anxiety: No Depression: Yes Heart Rhythm Problems: No Cancer: No Cardiovascular Problems: Yes High Cholesterol: No Chemotherapy: No Chest Pain: No Congestive Heart Failure: No COPD: No Cerebrovascular Accident: No Diabetes: Yes Dialysis: Yes () Diminished Hearing: No Deep Vein Thrombosis: Yes (RUE ) Endocrine: Yes GERD: No Glaucoma: No Genitourinary: Yes (STAGE 5 KIDNEY FAILURE HD PT ) Headaches: No Hepatitis: No Hiatal Hernia: No Hypertension: Yes Immune Disorder: No Kidney Stones: No Musculoskeletal: No Neurologic: No Psychiatric: No Reproductive: No Respiratory: No Immunizations Current: Yes Migraines: Yes Myocardial Infarction: No Radiation Therapy: No Renal Failure: Yes (ESRD on HD) Seizures: No Sickle Cell Disease: No Sleep Apnea: No Thyroid Disease: No Ulcer: No : 3 Para: 2 Miscarriage: 0 : 1 Past Surgical History Abdominal Surgery: No AICD: No Appendectomy: No Arteriovenous Shunt: Yes (LUE AVF) Body Medical Devices: lue fistula Cardiac Surgery: No Section: Yes Cholecystectomy: No Ear Surgery: No Endocrine Surgery: No Eye Surgery: No Genitourinary Surgery: Yes (TENKOFF CATHETER PLACED 11/25/2010 & VASCATH ) Insulin Pump: No Joint Replacement: No Neurologic Surgery: No Oral Surgery: No Pacemaker: No Thoracic Surgery: No Social History Alcohol Use: No (pt denies ) Tobacco Use: No Substance Use: No Allergies-Medications (Allergen,Severity, Reaction): Coded Allergies: penicillin G (Unverified Allergy, Severe, HIVES,RASH, 12/25/16) Reported Meds & Prescriptions Reported Meds & Active Scripts Active Clindamycin (Clindamycin HCl) 150 Mg Cap 450 Mg PO Q6H 7 Days Novolin N Inj (Insulin Human NPH) 1,000 Unit/10 Ml Vial 30 Units SQ AC BREAKFAST Catapres (Clonidine) 0.1 Mg Tab 0.1 Mg PO Q12HR Reported Sertraline (Sertraline HCl) 50 Mg Tab 50 Mg PO DAILY Calcium Acetate (Phosphate Binder) 667 Mg Cap 1,334 Mg PO TID Abilify (Aripiprazole) 2 Mg Tab 2 Mg PO DAILY Furosemide 40 Mg Tab 40 Mg PO BID Amlodipine (Amlodipine Besylate) 10 Mg Tab 10 Mg PO DAILY Novolin R Inj (Insulin Human Regular) 1,000 Unit/10 Ml Vial 0 SQ DIRECTED Sliding Scale As Directed. Review of Systems Except as stated in HPI: all other systems reviewed are Neg Physical Exam Narrative GENERAL: Well-nourished, well-developed pleasant female in no acute distress. SKIN: Focused skin assessment warm/dry. There is a puncture wound on the dorsum of the left hand with a few subcentimeter surrounding bullae. small amount of clear fluid present. There is mild to moderate edema of the hand. No erythema or warmth noted. HEAD: Normocephalic. EYES: No scleral icterus. No injection or drainage. NECK: Supple, trachea midline. No JVD or lymphadenopathy. CARDIOVASCULAR: Regular rate and rhythm without murmurs, gallops, or rubs. RESPIRATORY: Breath sounds equal bilaterally. No accessory muscle use. GASTROINTESTINAL: Abdomen soft, non-tender, nondistended. MUSCULOSKELETAL: No cyanosis, or edema. FOCUSED LEFT UPPER EXTREMITY EXAM: 2+ radial pulse. Palpable thrill in the Av fistula. Patient maintains full, active, painless range of motion of the digits and wrist. Endorses "tight" feeling on flexion. Strong finger to thumb opposition on each digit. Neurovascularly intact on each digit. BACK: Nontender without obvious deformity. No CVA tenderness. Data Data Last Documented VS Vital Signs Date Time Temp Pulse Resp B/P (MAP) Pulse Ox O2 Delivery O2 Flow Rate FiO2 12/25/16 19:09 98.6 83 16 156/74 (101) 99 Room Air Orders Orders Wound Culture And Gram Stain (12/25/16 20:50) Clindamycin Inj (Cleocin Inj) (12/25/16 21:00) MDM Medical Decision Making Medical Screen Exam Complete: Yes Emergency Medical Condition: Yes Differential Diagnosis Abscess versus cellulitis versus compartment syndrome versus tendinitis versus other other Narrative Course 36 YO F with PMH of ESRD, dialysis M/W/F, followed by Dr. Barraza presents to the ED for evaluation of 3 day history of pain and swelling of the left hand. Onset shortly after EMS placed an IV at the site. She denies fevers, chills, nausea, vomiting, numbness, tingling, weakness or limitation to ROM of the affected extremity. She states that she is concerned because her AV fistula is in the left arm. Patient is afebrile on presentation. She has a small pustule in the dorsum of the left hand with a few subcentimeter surrounding bullae. 1 bullae is open leaking a small amount of clear fluid which was cultured. There is mild edema of the hand. No erythema or warmth noted. The patient is able to move the fingers through normal range of motion although she does endorse a "tight" sensation with flexion. There is no signs of tenosynovitis. I reviewed her record and she does not have a history of MRSA. I think we will trial her on outpatient antibiotics with close follow-up. The patient is agreeable to this care plan. We discussed reasons to return to the ED. She has dialysis tomorrow and states that she will be able to come to the hospital should that be necessary. She is administered 600 mg clindamycin IM and prescribed for 500 clindamycin 4 times a day 7 days. She is stable and discharged home. Diagnosis Primary Impression: Cellulitis of left hand excluding fingers and thumb Referrals: Primary Care Physician Patient Instructions: Cellulitis (ED), General Instructions Additional Instructions: Rest, hydrate. Take antibiotics as prescribed, even if symptoms resolve. Return to the ED in 48 hours if symptoms do not improve. Otherwise follow-up with her primary care provider. Return to the ED for any urgent or emergent medical condition. Med/Other Pt SpecificInfo: Prescription(s) given Scripts Clindamycin (Clindamycin) 150 Mg Cap 450 MG PO Q6H for Infection for 7 Days, #84 CAP 0 Refills Prov: Radha Tracy MD 12/25/16 Disposition: 01 DISCHARGE HOME Condition: Stable Judie Francois Dec 25, 2016 20:49
[2016-12-25] MEDS ORDERED: CLINDAMYCIN PHOS 600 MG/4 ML VIAL IM ONE (21:00)
[2016-12-25] MEDS ORDERED: CLIN1CAP5 PO (21:05)
== END 2016-12-25 22:30 | disposition home or self-care (01) ==
LOC: NEPE 19:04
DX: L03.114 Cellulitis of left upper limb (principal); I12.0 Hypertensive chronic kidney disease with stage 5 chronic kidney disease or end stage renal disease; E11.8 Type 2 diabetes mellitus with unspecified complications; B95.2 Enterococcus as the cause of diseases classified elsewhere; B95.7 Other staphylococcus as the cause of diseases classified elsewhere; Z99.2 Dependence on renal dialysis
CPT/HCPCS: 87070; 87077; 87186; 87205; 99283

== ENCOUNTER 2017-03-03 23:45 | Emergency (ER) | payer MEDICARE, OTHER ==
[~2017-03-03] VITALS: Ht 157.5 cm; Wt 96.0 kg
[~2017-03-03 23:45] MED LIST changes: -ABIL2TAB2 PO; +ARIP2 PO; -CEPH-460 PO; +CLIN150C14 PO; -DOXY100T PO; -HYDR-3535 PO; -NOVO7030P2 SQ
[2017-03-03 23:47] VITALS: BP 179/78; PULSE 100; RESP 20; TEMP 98.2; O2SAT 99
--- NOTE | 2017-03-04 00:38 | RADRPT ---
EXAM DATE/TIME: 03/04/2017 00:24 [facility] COMPARISON: No previous studies available for comparison. INDICATIONS : Short of breath. MEDICAL HISTORY : Diabetes mellitus type II. Hypertension Deep venous thrombosisCardiovascular disease. Renal fail ure. SURGICAL HISTORY : section. AV shunt ENCOUNTER: Initial ACUITY: 2 days PAIN SCORE: 0/10 LOCATION: Bilateral chest FINDINGS: PA and lateral views of the chest demonstrate the lungs to be symmetrically aerated without evidence of mass, infiltrate or effusion. The cardiomediastinal contours are unremarkable. Osseous structure s are intact. There is mild eventration of the right hemidiaphragm. CONCLUSION: No acute disease. Dany Li MD on March 04, 2017 at 0:36 Board Certified Radiologist. This report was verified electronically.
[2017-03-04 01:37] LABS: AUTOMATED NEUTROPHIL # 6.6 TH/MM3 (1.8-7.7); BASOPHIL # 0.1 TH/MM3 (0-0.2); BASOPHIL % 1.6 % (0.0-2.0); EOSINOPHIL # 0.5 TH/MM3 (0-0.4); HEMATOCRIT 24.8 % (35.0-46.0); LYMPHOCYTE # 1.5 TH/MM3 (1.0-4.8); MEAN CELL VOLUME 93.8 FL (80.0-100.0); MEAN CORPUSCULAR HGB CONC 34.1 % (32.0-36.0); MONO % 6.6 % (0.0-8.0); NEUT % 70.8 % (16.0-70.0); PLATELET COUNT 218 TH/MM3 (150-450); RED BLOOD COUNT 2.64 MIL/MM3 (4.00-5.30); RED CELL DISTRIBUTION WIDTH 15.9 % (11.6-17.2); WHITE BLOOD COUNT 9.4 TH/MM3 (4.0-11.0)
[2017-03-04 02:04] LABS: ALKALINE PHOSPHATASE 111 U/L (45-117); TOTAL BILIRUBIN ADULT 0.4 MG/DL (0.2-1.0)
[2017-03-04 02:33] LABS: ALT (GPT) 42 U/L (10-53); ANION GAP 15 MEQ/L (5-15); AST (GOT) 38 U/L (15-37); BICARBONATE 22.6 MEQ/L (21.0-32.0); BLOOD UREA NITROGEN 66 MG/DL (7-18); CHLORIDE 91 MEQ/L (98-107); GLOMERULAR FILTRATION RATE 4 ML/MIN (>89); POTASSIUM 4.3 MEQ/L (3.5-5.1); SODIUM (NA) 129 MEQ/L (136-145)
[2017-03-04 03:00] LABS: SCAN/DIFF AUTO DIFF CONFIRMED
[2017-03-04 03:01] LABS: HEMO FLAGS AUTO DIFF
--- NOTE | 2017-03-04 03:18 | PD ---
HPI Chief Complaint: Respiratory Distress Time Seen by Provider: 23:55 Travel History International Travel<30 days: No Contact w/Intl Traveler<30days: No Traveled to known affect area: No History of Present Illness HPI Patient is a 36-year-old female with history of end-stage renal disease, who comes in complaining of shortness of breath. 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 She says she feels like her skin is tight. She denies any pain. She denies chest pain or leg pain. She denies abdominal pain or nausea or vomiting. She denies fever or chills. She denies any cough. PFSH Past Medical History Arthritis: No Asthma: No Autoimmune Disease: No Blood Disorders: No Anxiety: No Depression: Yes Heart Rhythm Problems: No Cancer: No Cardiovascular Problems: Yes High Cholesterol: No Chemotherapy: No Chest Pain: No Congestive Heart Failure: No COPD: No Cerebrovascular Accident: No Diabetes: Yes Patient Takes Glucophage: No Dialysis: Yes () Diminished Hearing: No Deep Vein Thrombosis: Yes (RUE ) Endocrine: Yes GERD: No Glaucoma: No Genitourinary: Yes (STAGE 5 KIDNEY FAILURE HD PT ) Headaches: No Hepatitis: No Hiatal Hernia: No Hypertension: Yes Immune Disorder: No Implanted Vascular Access Dvce: Yes (FISTULA L ARM) Kidney Stones: No Medical other: Yes (DIALYSIS .) Musculoskeletal: No Neurologic: No Psychiatric: No Reproductive: No Respiratory: No Immunizations Current: Yes Migraines: Yes Myocardial Infarction: No Radiation Therapy: No Renal Failure: Yes (ESRD on HD) Seizures: No Sickle Cell Disease: No Sleep Apnea: No Thyroid Disease: No Ulcer: No ?: Not LMP: FEB 19, 2017 : 3 Para: 2 Miscarriage: 0 : 1 Past Surgical History Abdominal Surgery: No AICD: No Appendectomy: No Arteriovenous Shunt: Yes (LUE AVF) Body Medical Devices: lue fistula Cardiac Surgery: No Section: Yes Cholecystectomy: No Ear Surgery: No Endocrine Surgery: No Eye Surgery: No Genitourinary Surgery: Yes (TENKOFF CATHETER PLACED 11/25/2010 & VASCATH ) Gynecologic Surgery: Yes (C SECTION X2) Insulin Pump: No Joint Replacement: No Neurologic Surgery: No Oral Surgery: No Pacemaker: No Thoracic Surgery: No Other Surgery: Yes (L. Upper Arm Fistula , perma cath, ) Social History Alcohol Use: No (pt denies ) Tobacco Use: No Substance Use: No Allergies-Medications (Allergen,Severity, Reaction): Coded Allergies: penicillin G (Unverified Allergy, Severe, HIVES,RASH, 03/04/17) Reported Meds & Prescriptions Reported Meds & Active Scripts Active Novolin N Inj (Insulin Human NPH) 1,000 Unit/10 Ml Vial 30 Units SQ AC BREAKFAST Catapres (Clonidine) 0.1 Mg Tab 0.1 Mg PO Q12HR Reported Sertraline (Sertraline HCl) 50 Mg Tab 50 Mg PO DAILY Calcium Acetate (Phosphate Binder) 667 Mg Cap 1,334 Mg PO TID Abilify (Aripiprazole) 2 Mg Tab 2 Mg PO DAILY Furosemide 40 Mg Tab 40 Mg PO BID Amlodipine (Amlodipine Besylate) 10 Mg Tab 10 Mg PO DAILY Novolin R Inj (Insulin Human Regular) 1,000 Unit/10 Ml Vial 0 SQ DIRECTED Sliding Scale As Directed. Review of Systems Except as stated in HPI: all other systems reviewed are Neg General / Constitutional: No: Fever, Chills HENT: No: Headaches, Lightheadedness Cardiovascular: No: Chest Pain or Discomfort, Palpitations Respiratory: Positive: Shortness of Breath, No: Cough Gastrointestinal: No: Nausea, Vomiting, Abdominal Pain Musculoskeletal: Positive: Edema Skin: No Rash, No Lesions Neurologic: No: Weakness, Dizziness Physical Exam Narrative GENERAL: Awake and alert, in no acute distress. Laying flat on a stretcher comfortably. SKIN: Focused skin assessment warm/dry. HEAD: Atraumatic. Normocephalic. EYES: Pupils equal and round. No scleral icterus. ENT: Mucous membranes pink and moist. NECK: Trachea midline. No JVD. CARDIOVASCULAR: Regular rate and rhythm. No murmur appreciated. RESPIRATORY: No accessory muscle use. Clear to auscultation. Breath sounds equal bilaterally. GASTROINTESTINAL: Abdomen soft, non-tender, nondistended. MUSCULOSKELETAL: No obvious deformities. No clubbing. No cyanosis. No edema. NEUROLOGICAL: Awake and alert. No obvious cranial nerve deficits. Motor grossly within normal limits. Normal speech. PSYCHIATRIC: Appropriate mood and affect; insight and judgment normal. Data Data Last Documented VS Vital Signs Date Time Temp Pulse Resp B/P (MAP) Pulse Ox O2 Delivery O2 Flow Rate FiO2 03/04/17 01:00 99 Room Air 03/03/17 23:47 98.2 100 20 179/78 (111) Orders Orders Chest, Pa & Lat (03/04/17 ) Complete Blood Count With Diff (03/04/17 00:11) Comprehensive Metabolic Panel (03/04/17 00:11) Electrocardiogram (03/04/17 ) Labs Laboratory Tests Test 03/04/17 01:20 White Blood Count 9.4 TH/MM3 Red Blood Count 2.64 MIL/MM3 Hemoglobin 8.5 GM/DL Hematocrit 24.8 % Mean Corpuscular Volume 93.8 FL Mean Corpuscular Hemoglobin 32.0 PG Mean Corpuscular Hemoglobin Concent 34.1 % Red Cell Distribution Width 15.9 % Platelet Count 218 TH/MM3 Mean Platelet Volume 7.2 FL Neutrophils (%) (Auto) 70.8 % Lymphocytes (%) (Auto) 16.0 % Monocytes (%) (Auto) 6.6 % Eosinophils (%) (Auto) 5.0 % Basophils (%) (Auto) 1.6 % Neutrophils # (Auto) 6.6 TH/MM3 Lymphocytes # (Auto) 1.5 TH/MM3 Monocytes # (Auto) 0.6 TH/MM3 Eosinophils # (Auto) 0.5 TH/MM3 Basophils # (Auto) 0.1 TH/MM3 CBC Comment AUTO DIFF Differential Comment AUTO DIFF CONFIRMED Blood Urea Nitrogen 66 MG/DL Creatinine 11.44 MG/DL Random Glucose 186 MG/DL Total Protein 7.1 GM/DL Albumin 3.4 GM/DL Calcium Level 8.3 MG/DL Alkaline Phosphatase 111 U/L Aspartate Amino Transf (AST/SGOT) 38 U/L Alanine Aminotransferase (ALT/SGPT) 42 U/L Total Bilirubin 0.4 MG/DL Sodium Level 129 MEQ/L Potassium Level 4.3 MEQ/L Chloride Level 91 MEQ/L Carbon Dioxide Level 22.6 MEQ/L Anion Gap 15 MEQ/L Estimat Glomerular Filtration Rate 4 ML/MIN MDM Medical Decision Making Medical Screen Exam Complete: Yes Emergency Medical Condition: Yes Medical Record Reviewed: Yes Interpretation(s) ECG shows normal sinus rhythm, no ST elevation or depression, no evidence of hyperkalemia Differential Diagnosis Fluid overload versus missed dialysis versus electrolyte abnormality Narrative Course Patient is a 36-year-old female comes in because she missed dialysis today. Exam shows no evidence of fluid overload. She is laying flat, comfortably has no tachypnea or any signs of difficulty breathing. Labs sent show no elevated creatinine, potassium is 4.3. Chest x-ray shows no pulmonary edema. Patient advised she needs to follow-up with her dialysis center and get dialyzed. Advised to not miss dialysis any more. Advised return to the ED as needed for any worsening symptoms. Diagnosis Primary Impression: ESRD (end stage renal disease) on dialysis Patient Instructions: End Stage Kidney Disease (ED), General Instructions Additional Instructions: Arrange for dialysis as soon as possible. Do not miss any more sessions of dialysis. Return to the ED as needed for any worsening symptoms. Disposition: 01 DISCHARGE HOME Condition: Stable Poppy Torres MD Mar 04, 2017 03:18
[2017-03-04 03:45] VITALS: BP 154/86
--- NOTE | 2017-03-04 14:37 | EKG ---
Date Performed: 03/04/2017 Time Performed: 01:12:18 PTAGE: 36 years EKG: Sinus rhythm NONSPECIFIC T-WAVE ABNORMALITY BORDERLINE ECG PREVIOUS TRACING : 10/18/2016 07.22 Compared to prior tracing no significant change DOCTOR: Rubin Harley Interpretating Date/Time 03/04/2017 14:36:35
== END 2017-03-04 03:59 | disposition home or self-care (01) ==
LOC: NEPE 23:45
DX: R06.02 Shortness of breath (principal); E11.22 Type 2 diabetes mellitus with diabetic chronic kidney disease; I12.0 Hypertensive chronic kidney disease with stage 5 chronic kidney disease or end stage renal disease; N18.6 End stage renal disease; R94.31 Abnormal electrocardiogram [ECG] [EKG]; Z99.2 Dependence on renal dialysis; Z86.718 Personal history of other venous thrombosis and embolism; Z79.4 Long term (current) use of insulin; Z79.899 Other long term (current) drug therapy
CPT/HCPCS: 71020; 80053; 85025; 93005; 99284

== ENCOUNTER 2017-07-05 17:31 | Emergency (ER) | payer MEDICARE, OTHER ==
[~2017-07-05 17:31] MED LIST changes: -CLIN150C14 PO
[2017-07-05 17:58] VITALS: BP 168/91; PULSE 95; RESP 16; TEMP 98.8; O2SAT 100
[2017-07-05] MEDS ORDERED: VENTAER INH ×2 (18:28→18:35)
--- NOTE | 2017-07-05 18:34 | PD ---
HPI Chief Complaint: Cold / Flu Symptoms Time Seen by Provider: 18:03 Travel History International Travel<30 days: No Contact w/Intl Traveler<30days: No Traveled to known affect area: No History of Present Illness HPI 36-year-old female with history of type I diabetes, end-stage renal disease, and hypertension presents to the emergency room for evaluation of mildly productive cough, orthopnea, and congestion for the past month. Patient has been to her primary care physician for this who put her on a week of doxycycline which she finished 1 week ago. She reports no improvement in symptoms. States sometimes she has to fall asleep sitting up because of the congestion in her lungs. She has also been taking [id number] Mucinex without significant relief in symptoms. Patient has dialysis Monday, Monday , and Monday. States she could not go today because she was so tired after being up all night coughing. Patient reports feeling fluid overloaded. She called the facility who stated they can get her in again on Monday. She denies any fevers at any point in the illness. PFSH Past Medical History Arthritis: No Asthma: No Autoimmune Disease: No Blood Disorders: No Anxiety: No Depression: Yes Heart Rhythm Problems: No Cancer: No Cardiovascular Problems: Yes High Cholesterol: No Chemotherapy: No Chest Pain: No Congestive Heart Failure: No COPD: No Cerebrovascular Accident: No Diabetes: Yes Dialysis: Yes () Diminished Hearing: No Deep Vein Thrombosis: Yes (RUE ) Endocrine: Yes GERD: No Glaucoma: No Genitourinary: Yes (STAGE 5 KIDNEY FAILURE HD PT -) Headaches: No Hepatitis: No Hiatal Hernia: No Hypertension: Yes Immune Disorder: No Implanted Vascular Access Dvce: Yes (FISTULA L ARM) Kidney Stones: No Musculoskeletal: No Neurologic: No Psychiatric: No Reproductive: No Respiratory: No Immunizations Current: Yes Migraines: Yes Myocardial Infarction: No Radiation Therapy: No Renal Failure: Yes (ESRD on HD) Seizures: No Sickle Cell Disease: No Sleep Apnea: No Thyroid Disease: No Ulcer: No : 3 Para: 2 Miscarriage: 0 : 1 Past Surgical History Abdominal Surgery: No AICD: No Appendectomy: No Arteriovenous Shunt: Yes (LUE AVF) Body Medical Devices: lue fistula Cardiac Surgery: No Section: Yes Cholecystectomy: No Ear Surgery: No Endocrine Surgery: No Eye Surgery: No Genitourinary Surgery: Yes (TENKOFF CATHETER PLACED 11/25/2010 & VASCATH ) Gynecologic Surgery: Yes (C SECTION X2) Insulin Pump: No Joint Replacement: No Neurologic Surgery: No Oral Surgery: No Pacemaker: No Thoracic Surgery: No Other Surgery: Yes (L. Upper Arm Fistula , perma cath, ) Social History Alcohol Use: No (pt denies ) Tobacco Use: No Substance Use: No Allergies-Medications (Allergen,Severity, Reaction): Coded Allergies: penicillin G (Unverified Allergy, Severe, HIVES,RASH, 07/05/17) Reported Meds & Prescriptions Reported Meds & Active Scripts Active Novolin N Inj (Insulin Human NPH) 1,000 Unit/10 Ml Vial 30 Units SQ AC BREAKFAST Catapres (Clonidine) 0.1 Mg Tab 0.1 Mg PO Q12HR Reported Sertraline (Sertraline HCl) 50 Mg Tab 50 Mg PO DAILY Calcium Acetate (Phosphate Binder) 667 Mg Cap 1,334 Mg PO TID Abilify (Aripiprazole) 2 Mg Tab 2 Mg PO DAILY Furosemide 40 Mg Tab 40 Mg PO BID Amlodipine (Amlodipine Besylate) 10 Mg Tab 10 Mg PO DAILY Novolin R Inj (Insulin Human Regular) 1,000 Unit/10 Ml Vial 0 SQ DIRECTED Sliding Scale As Directed. Review of Systems Except as stated in HPI: all other systems reviewed are Neg Physical Exam Narrative GENERAL: Well-nourished, well-developed female no acute distress. Afebrile. Ambulatory. SKIN: Focused skin assessment warm/dry. HEAD: Normocephalic. EYES: No scleral icterus. No injection or drainage. NECK: Supple, trachea midline. No JVD or lymphadenopathy. CARDIOVASCULAR: Regular rate and rhythm without murmurs, gallops, or rubs. RESPIRATORY: Breath sounds equal bilaterally. No accessory muscle use. Bilateral crackles. No wheezes. No increased work of breathing. PSYCHIATRIC: No delusional thought processes. No hallucinations. Data Data Last Documented VS Vital Signs Date Time Temp Pulse Resp B/P (MAP) Pulse Ox O2 Delivery O2 Flow Rate FiO2 07/05/17 17:58 98.8 95 16 168/91 (116) 100 MDM Medical Decision Making Medical Screen Exam Complete: Yes Emergency Medical Condition: Yes Medical Record Reviewed: Yes Differential Diagnosis Bronchitis, fluid overload, pneumonia Narrative Course 36-year-old female presents to the emergency room for evaluation of mildly productive cough for the past month. She has associated orthopnea. Patient is a dialysis patient skipped dialysis today because she was up all night coughing. She reports worsening orthopnea over the past month. She was treated by her PCP with doxycycline without improvement in symptoms. Physical exam is reassuring. Patient is resting comfortably, playing on her cell phone. There is no increased work of breathing. She is 100% on room air. There are bilateral crackles on exam, likely from bronchitis or fluid overload considering she skipped her dialysis today. Vital signs are stable. I spoke to my attending physician, Dr. Patiño, who agrees patient appears stable for outpatient follow-up. She was discharged with prescription for albuterol inhaler and told to follow-up with her primary care physician and especially to have her dialysis on Monday. She understands and agrees to plan. Diagnosis Primary Impression: Bronchitis Referrals: Dialysis Primary Care Physician Additional Instructions: Albuterol as directed, as needed for symptoms. Go to dialysis on Monday. Follow-up with your primary care physician. Return to the emergency room for worsening symptoms. Scripts Albuterol 18 GM Inh (Ventolin Hfa 18 GM Inh) 90 Mcg/Act Aer 2 PUFF INH Q6H Y for SHORTNESS OF BREATH, #1 INHALER 0 Refills Prov: Juvenal Patiño MD 07/05/17 Disposition: 01 DISCHARGE HOME Condition: Stable Vesna Perez Jul 05, 2017 18:34
[2017-07-05] MEDS ORDERED: BENZ100 PO (18:41)
== END 2017-07-05 18:47 | disposition home or self-care (01) ==
LOC: NEPK 17:31
DX: J40 Bronchitis, not specified as acute or chronic (principal); E10.22 Type 1 diabetes mellitus with diabetic chronic kidney disease; I12.0 Hypertensive chronic kidney disease with stage 5 chronic kidney disease or end stage renal disease; N18.6 End stage renal disease; Z99.2 Dependence on renal dialysis; Z79.4 Long term (current) use of insulin
CPT/HCPCS: 99283

== ENCOUNTER 2017-12-16 21:59 | Inpatient (IN) ==
[2017-12-16] MEDS ORDERED: Dextrose 50% in Water 50 ML Vial IV.PUSH PRN (22:37)
[2017-12-16] MEDS ORDERED: Sod Chloride 0.9% Inj 1,000 ML IV.SIG ONE (22:37)
--- NOTE | 2017-12-16 22:40 | ED ---
HPI General Chief complaint: Medical Clearance Stated complaint: needs insulin Time Seen by Provider: 12/16/17 22:34 History of Present Illness HPI narrative: 37-year-old female with history of diabetes, ESRD on HD (MWF), here for evaluation of hyperglycemia and cough. The patient reports that she has been out of her Novolin N for the last day. She reports having cough and upper respiratory symptoms for about a week. Cough is productive of yellowish sputum. No hemoptysis. No chest pain. She has had some loose bowel movements are nonbloody. No vomiting. No abdominal pain. Related Data Home Medications Medication Instructions Recorded Confirmed Novolin R Regular U-100 Insuln 10 units SUB-Q BID 10/27/17 12/16/17 amlodipine 20 mg PO DAILY 10/27/17 12/16/17 calcium acetate 667 mg PO TID 10/27/17 12/16/17 clonidine HCl 0.2 mg PO DAILY 10/27/17 12/16/17 insulin NPH isoph U-100 human 30 unit SUB-Q BID 10/27/17 12/16/17 [Novolin N NPH U-100 Insulin] sertraline 2 mg PO DAILY 12/16/17 12/16/17 sertraline [Zoloft] 100 mg PO DAILY 12/16/17 12/16/17 Allergies Allergy/AdvReac Type Severity Reaction Status Date / Time penicillin G Allergy Severe HIVES,RASH Verified 10/27/17 00:54 Review of Systems ROS: all other systems reviewed are negative PMFSH Social History Social History Substance History: No History of Abuse Second Hand Smoke Exposure: No Smoking Status: Never smoker How Often Do You Have a Drink Containing Alcohol: Never Recent Travel in [facility] within the Last 8 Weeks: No Recent Out of Country Travel within the Last 8 Weeks: No Exam Narrative Exam Narrative: GENERAL: Well-developed, well-nourished, resting comfortably, no apparent distress. SKIN: Focused skin assessment warm/dry. No rash. HEAD: Atraumatic. Normocephalic. EYES: Pupils equal and round. No scleral icterus. No injection or drainage. ENT: No nasal bleeding or discharge. Mucous membranes pink and moist. NECK: Trachea midline. No JVD. No nuchal rigidity. CARDIOVASCULAR: Regular rate and rhythm. RESPIRATORY: No accessory muscle use. Clear to auscultation. Breath sounds equal bilaterally. GASTROINTESTINAL: Abdomen soft, non-tender, nondistended. Hepatic and splenic margins not palpable. MUSCULOSKELETAL: No obvious deformities. No clubbing. No cyanosis. No edema. NEUROLOGICAL: Awake and alert. No obvious cranial nerve deficits. Motor grossly within normal limits. Normal speech. PSYCHIATRIC: Appropriate mood and affect; insight and judgment normal. Course Initial Documented Vital Signs Temperature 99.1 F 12/16/17 22:28 Pulse Rate 84 12/16/17 22:28 Respiratory Rate 18 12/16/17 22:28 Blood Pressure 156/100 H 12/16/17 22:28 Pulse Oximetry 99 12/16/17 22:28 Last Documented Vital Signs Temperature 99.2 F 12/16/17 22:44 Pulse Rate 78 12/17/17 00:26 Respiratory Rate 17 12/17/17 00:26 Blood Pressure 178/76 H 12/17/17 00:26 Pulse Oximetry 99 12/17/17 00:26 Medical Decision Making MDM Narrative Medical decision making narrative: Vital signs reviewed. Labs are remarkable for severe hyperglycemia with a blood glucose of 850, normal bicarb, hyponatremia with a sodium of 124. The patient is not in DKA. Chest x-ray shows no acute disease. The patient is an end-stage renal patient on dialysis. She was given 1 L normal saline IV. She will be given IV insulin and will be admitted for further management of profound hyperglycemia with hyponatremia which is likely secondary to her hyperglycemia. Case discussed with the medical residents and the patient will be admitted to their service under Dr. Garcia. They would like the patient to be admitted to the ICU. Medical Screen Exam Complete: Yes Emergency Medical Condition: Yes Differential Diagnosis Differential Diagnosis: Hyperglycemia, DKA, pneumonia, bronchitis Lab Data Result diagrams: 12/16/17 23:05 12/16/17 23:05 Lab Results 12/16/17 12/16/17 12/16/17 Range/Units 23:00 23:05 23:05 WBC 5.8 (4.0-11.0) th/mm3 RBC 3.25 L (4.00-5.30) mil/mm3 Hgb 10.6 L (11.6-15.3) gm/dL Hct 33.1 L (35.0-46.0) % MCV 101.7 H (80.0-100.0) fL MCH 32.4 (27.0-34.0) pg MCHC 31.9 L (32.0-36.0) % RDW 14.0 (11.6-17.2) % Plt Count 174 (150-450) th/mm3 MPV 7.5 (7.0-11.0) fL Neut % (Auto) 79.4 H (16.0-70.0) % Lymph % (Auto) 10.0 (9.0-44.0) % Dickson % (Auto) 8.7 H (0.0-8.0) % Eos % (Auto) 1.4 (0.0-4.0) % Baso % (Auto) 0.5 (0.0-2.0) % Neut # (Auto) 4.6 (1.8-7.7) th/mm3 Lymph # (Auto) 0.6 L (1.0-4.8) th/mm3 Dickson # (Auto) 0.5 (0.0-0.9) th/mm3 Eos # (Auto) 0.1 (0.0-0.4) th/mm3 Baso # (Auto) 0.0 (0.0-0.2) th/mm3 WBC Differential . Differential Comment Auto diff final Sodium 124 L* (136-145) meq/L Potassium 4.7 (3.5-5.1) meq/L Chloride 84 L (98-107) meq/L Carbon Dioxide 26.6 (21.0-32.0) meq/L Anion Gap 13 (5-15) meq/L BUN 37 H (7-18) mg/dL Creatinine 5.77 H (0.50-1.00) mg/dL Estimated GFR 8 L (>89) mL/min POC Glucose Greater than 600 H* (68-110) mg/dl Random Glucose 851 H* (74-106) mg/dL Calcium 8.5 (8.5-10.1) mg/dL Total Bilirubin 0.4 (0.2-1.0) mg/dL AST 17 (15-37) U/L ALT 23 (10-53) U/L Alkaline Phosphatase 119 H (45-117) U/L Total Protein 7.6 (6.4-8.2) g/dL Albumin 3.4 (3.4-5.0) g/dL Beta-Hydroxybutyric Acd 1.38 H (0.00-0.39) mmol/L Imaging Data Radiologist's impression: Chest X-Ray 12/16/17 22:37 CONCLUSION: No acute cardiopulmonary disease. Discharge Plan Discharge Disposition Patient Disposition: 30 Still Patient Discharge Condition Condition: Fair Discharge Details Diagnosis: Hyperglycemia, Hyponatremia Physicians Team ED Provider: Steven Gordon Primary Care Provider: Primary Care Gi Peterson Rxs /Orders / Referrals /Forms Prescriptions: No Action clonidine HCl 0.2 mg Tablet 0.2 mg PO DAILY RF: 0 amlodipine 10 mg Tablet 20 mg PO DAILY RF: 0 insulin NPH isoph U-100 human [Novolin N NPH U-100 Insulin] 100 unit/mL Suspension 30 unit SUB-Q BID RF: 0 calcium acetate 667 mg Capsule 667 mg PO TID RF: 0 Novolin R Regular U-100 Insuln 10 units Sub-Q BID RF: 0 sertraline [Zoloft] 100 mg Tablet 100 mg PO DAILY RF: 0 sertraline 25 mg Tablet 2 mg PO DAILY RF: 0 Discharge Interventions Interventions: Vital Signs Last Done: 12/17/17 00:26 Status ED Status: With Doctor
--- NOTE | 2017-12-16 22:56 | XR ---
EXAM DATE: 12/16/2017 10:53 PM EDT AGE/SEX: 37 years / Female INDICATIONS: Shortness of breath, chest pain. Patient states her blood sugar was higher than normal. CLINICAL DATA: This is the patient's initial encounter. Patient reports that signs and symptoms have been present for 1 day and indicates a pain score of 5/10. MEDICAL/SURGICAL HISTORY: Hypertension. Diabetes. Cardiac disorders. Stage V renal failure. ES RD. . AV fistula. Vasocath. COMPARISON: [facility] [place], CHEST PA & LAT, 03/04/2017. . FINDINGS: A single AP view of the chest demonstrates the lungs to be symmetrically aerated without evidence of mass, infiltrate or effusion. The cardiomediastinal contours are unremarkable. Osseous structures a re intact. CONCLUSION: No acute cardiopulmonary disease. Electronically signed by: Dany Li MD 12/16/2017 10:54 PM EDT
[2017-12-16 23:32] LABS: Baso % (Auto) 0.5 % (0.0-2.0); Eos # (Auto) 0.1 th/mm3 (0.0-0.4); Eos % (Auto) 1.4 % (0.0-4.0); Hematocrit 33.1 % (35.0-46.0); Hemoglobin 10.6 gm/dL (11.6-15.3); Lymph # (Auto) 0.6 th/mm3 (1.0-4.8); Mean Corpuscular HGB Conc 31.9 % (32.0-36.0); Mean Corpuscular Hemoglobin 32.4 pg (27.0-34.0); Mean Corpuscular Volume 101.7 fL (80.0-100.0); Mean Platelet Volume 7.5 fL (7.0-11.0); Mono # (Auto) 0.5 th/mm3 (0.0-0.9); Mono % (Auto) 8.7 % (0.0-8.0); Neut # (Auto) 4.6 th/mm3 (1.8-7.7); Neut % (Auto) 79.4 % (16.0-70.0); Platelet Count 174 th/mm3 (150-450); Red Blood Count 3.25 mil/mm3 (4.00-5.30); White Blood Count 5.8 th/mm3 (4.0-11.0)
[2017-12-16 23:57] LABS: Alanine Aminotransferase 23 U/L (10-53); Albumin 3.4 g/dL (3.4-5.0); Alkaline Phosphatase 119 U/L (45-117); Anion Gap 13 meq/L (5-15); Aspartate Aminotransferase 17 U/L (15-37); Beta Hydroxybutyric Acid 1.38 mmol/L (0.00-0.39); Blood Urea Nitrogen 37 mg/dL (7-18); Calcium 8.5 mg/dL (8.5-10.1); Carbon Dioxide 26.6 meq/L (21.0-32.0); Chloride 84 meq/L (98-107); Glomerular Filtration Rate 8 mL/min (>89); Potassium 4.7 meq/L (3.5-5.1); Total Protein 7.6 g/dL (6.4-8.2)
[2017-12-17 00:01] LABS: Glucose,Random 851 mg/dL (74-106); Sodium 124 meq/L (136-145)
--- NOTE | 2017-12-17 01:00 | P.HPFP ---
History of Present Illness Primary Care Physician: No Primary Care Physician <Eliana Amaya - 12/17/17 10:41> No Primary Care Physician <Mirtha Kulkarni - 12/17/17 01:00> Chief Complaint: Hyperglycemia <Mirtha Kulkarni - 12/17/17 04:41> History of Present Illness: Family history: Pt denies family history of blood clots. Grandfather with kidney disease, required dialysis. <Eliana Amaya - 12/17/17 10:41> 37-year-old female with history of insulin-dependent diabetes mellitus, end- stage renal disease on dialysis (Monday) and hypertension presents to the ED with high blood glucose level and cough for the last week. Patient states that she ran out of Novolin N 2 days ago and thus her blood glucose levels have been elevated at home. She only takes Novolin N 30 units twice daily and Novolin R 10 units twice daily. Yesterday her blood glucose levels were the 200s throughout the day. Fasting blood glucose level this morning was in the 300s, for which she took a dose of Novolin R with minimal resolution. She last checked this evening prior to coming into the ED and blood glucose level was read as "high" glucose meter. Patient has been experiencing increased thirst, fatigue, decreased appetite, and nausea. No recent hypoglycemic episodes. Patient states she was last hospitalized for DKA over 5 years ago. She currently receives her insulin prescription from a PA that she sees at the dialysis clinic. She has appointment with new PCP at [facility] on . Patient also complaining of a cough productive of white and yellow issue phlegm for the past week. She also notes watery diarrhea for 1 week. Patient states that her children started school at the beginning of November and likely contracted respiratory illness from them. Denies sore throat, vomiting, shortness of breath, chest pain, abdominal pain, bloody stools, or notable fever. However, patient states that she has been experiencing drenching night sweats for the past week. Patient does note that she uses an albuterol inhaler about once a month due to frequent URI. No formal diagnosis of asthma. <Mirtha Kulkarni - 12/17/17 04:41> - Diagnosis (1) Hyperglycemia (2) Insulin dependent diabetes mellitus (3) ESRD (end stage renal disease) on dialysis (4) Cough (5) HTN (hypertension) (6) DVT prophylaxis <Eliana Amaya 12/17/17 10:41> (1) Hyperglycemia (2) ESRD (end stage renal disease) on dialysis (3) Cough (4) HTN (hypertension) (5) Nutrition, metabolism, and development symptoms (6) DVT prophylaxis <Mirtha Kulkarni 12/17/17 04:32> Inpatient Certification: I certify that the inpatient services were ordered in accordance with Medicare regulations governing the order. This includes certification that hospital inpatient services are reasonable and necessary and in the case of services not specified as inpatient-only under 42 CFR 419.22(n), that they are appropriately provided as inpatient services in accordance to with the 2-midnight benchmark under 43 CFR 412.3(e) <Eliana Amaya 12/17/17 10:41> I certify that the inpatient services were ordered in accordance with Medicare regulations governing the order. This includes certification that hospital inpatient services are reasonable and necessary and in the case of services not specified as inpatient-only under 42 CFR 419.22(n), that they are appropriately provided as inpatient services in accordance to with the 2-midnight benchmark under 43 CFR 412.3(e) <Mirtha Kulkarni 12/17/17 01:00> Review of Systems Constitutional: Reports night sweats, Denies chills, Denies fever(s) <Mirtha Kulkarni 12/17/17 03:03> Eyes: Denies change in vision <MaryseMirtha B 12/17/17 03:03> Ears, Nose, Mouth, and Throat: Reports nasal congestion, Denies abnormal hearing , Denies dizziness, Denies ear pain, Denies sore throat <Mirtha Kulkarni 12/26 03:03> Cardiovascular: Denies chest pain, Denies shortness of breath <[facility] 12/17/17 03:03> Respiratory: Reports change in phlegm color (white or yellow), Reports chest congestion, Reports cough <Mirtha Kulkarni 12/17/17 03:03> Gastrointestinal: Reports nausea, Denies abdominal pain, Denies vomiting <Nicolle [facility] 12/17/17 03:03> Genitourinary: Denies painful urination, Denies urinary incontinence <Mirtha Kulkarni Nasreen 12/17/17 03:03> PMFSH - History History Provided By: Patient <Mirtha Kulkarni Nasreen 12/17/17 01:00> - Medical History Medical History: Medical History (Last Reviewed 10/27/17 @ 01:13 by Valeri Heredia) Anemia DVT (deep venous thrombosis) Diabetes Hemodialysis access site with arteriovenous graft Hypertension PVD (peripheral vascular disease) Renal failure Secondary hyperparathyroidism <Eliana Amaya 12/17/17 10:41> Medical History (Last Reviewed 10/27/17 @ 01:13 by Valeri Heredia) Anemia DVT (deep venous thrombosis) Diabetes Hemodialysis access site with arteriovenous graft Hypertension PVD (peripheral vascular disease) Renal failure Secondary hyperparathyroidism <ShadMirtha 12/17/17 01:00> - Tobacco History Second Hand Smoke Exposure: No <ShadMirtha B 12/17/17 01:00> Tobacco Use In Past 30 Days: No <ShadMirtha B 12/17/17 01:00> Smoking Status: Never smoker <MarysesoumyaMirtha B 12/17/17 01:00> - Alcohol History How Often Do You Have a Drink Containing Alcohol: Never <ShadMirtha B 12/26 01:00> - Substance Use History Substance History: No History of Abuse <ShadMirtha Nasreen 12/17/17 01:00> - Travel History Recent Travel in the [facility] Within the Last 8 Weeks: No <ShadMirtha B 01:00> Recent Travel Out of the Country Within the Last 8 Weeks: No <ShadMirtha B 12/17/17 01:00> - Immunization History Tetanus Immunization: <5 Years <ShadMirtha B 12/17/17 01:00> Hx Influenza Vaccine This Season: Yes <ShadMirtha B 12/17/17 01:00> Medications and Allergies Allergies Allergy/AdvReac Type Severity Reaction Status Date / Time penicillin G Allergy Severe HIVES,RASH Verified 10/27/17 00:54 <Eliana Amaya 12/17/17 10:41> Home Medications Medication Instructions Recorded Confirmed Type Novolin R Regular U-100 Insuln 10 units SUB-Q BID 10/27/17 12/16/17 History amlodipine 20 mg PO DAILY 10/27/17 12/16/17 History calcium acetate 667 mg PO TID 10/27/17 12/16/17 History clonidine HCl 0.2 mg PO DAILY 10/27/17 12/16/17 History insulin NPH isoph U-100 human 30 unit SUB-Q BID 10/27/17 12/16/17 History [Novolin N NPH U-100 Insulin] sertraline 2 mg PO DAILY 12/16/17 12/16/17 History sertraline [Zoloft] 100 mg PO DAILY 12/16/17 12/16/17 History <Dorothy Amayae - 12/17/17 10:41> Active Medications: Active Medications Amlodipine Besylate (Norvasc) 10 mg PO DAILY [facility] Last Admin: 12/17/17 09:35 Dose: 10 mg Chlorhexidine Gluconate (Chlorhexidine 2% Cloth) 3 pack TOPICAL DAILY@0400 [facility]URA Stop: 12/22/17 03:59 Last Admin: 12/17/17 04:06 Dose: 3 pack Chlorhexidine Gluconate (Chlorhexidine 2% Cloth) 3 pack TOPICAL DAILY@0400 PRN PRN Reason: Extra cloth needed Stop: 12/22/17 03:59 Clonidine HCl (Catapres) 0.2 mg PO DAILY [facility] Last Admin: 12/17/17 09:35 Dose: 0.2 mg Dextrose (D50w Vial) 50 ml IV.PUSH UNSCH PRN PRN Reason: PER HYPOGLYCEMIA PROTOCOL Glucagon (Glucagon Inj) 1 mg OTHER UNSCH PRN PRN Reason: for Hypoglycemia Protocol Sodium Phosphate 15 mmol/ (Sodium Chloride) 105 mls @ 25 mls/hr IV.SIG UNSCH PRN PRN Reason: for Phosphate Level < 1.0 Insulin Human NPH (Novolin N Inj) 15 units SQ BID [facility] Last Admin: 12/17/17 09:36 Dose: 15 units Insulin Human Regular (Novolin R Correctional Sugar Inj) 0 units SQ ACHS AND 3AM MAURA; Protocol Miscellaneous (Pill Splitter) 1 each OTHER UNSCH PRN PRN Reason: PILL SPIT Sertraline HCl (Zoloft) 100 mg PO DAILY [facility] Last Admin: 12/17/17 09:35 Dose: 100 mg Sodium Bicarbonate (Sodium Bicarbonate 8.4% Inj) 50 meq IV.PUSH UNSCH PRN PRN Reason: for pH 6.9 to 7.0 Sodium Bicarbonate (Sodium Bicarbonate 8.4% Inj) 100 meq IV.PUSH UNSCH PRN PRN Reason: for pH less than 6.9 Sodium Chloride (Ns Flush) 2 ml IV.FLUSH PRN PRN PRN Reason: FLUSH AFTER USING IV ACCESS <Eliana Amaya - 12/17/17 10:41> Active Medications Dextrose (D50w Vial) 50 ml IV.PUSH UNSCH PRN PRN Reason: PER HYPOGLYCEMIA PROTOCOL Sodium Chloride (Ns Flush) 2 ml IV.FLUSH PRN PRN PRN Reason: FLUSH AFTER USING IV ACCESS <Mirtha Kulkarni - 12/17/17 01:00> Exam Vital signs: Vital Signs 12/16/17 22:28 12/16/17 22:44 12/17/17 00:26 Temperature 99.1 F 99.2 F Pulse Rate 84 76 78 Respiratory Rate 18 18 17 Blood Pressure 156/100 H 154/65 H 178/76 H Pulse Oximetry 99 100 99 12/17/17 01:25 12/17/17 02:38 12/17/17 04:00 Temperature 98.4 F 99.2 F Pulse Rate 80 74 74 Respiratory Rate 16 20 16 Blood Pressure 146/62 H 156/70 H 142/64 H Pulse Oximetry 100 99 97 12/17/17 05:00 12/17/17 06:00 Temperature Pulse Rate 75 75 Respiratory Rate 16 15 Blood Pressure 154/79 H 163/89 H Pulse Oximetry 97 98 Intake & Output 12/16/17 12/17/17 12/17/17 18:59 06:59 18:59 Intake Total 1000 / 1000 Output Total 0 / 0 Balance 1000 / 1000 Weight 101.5 kg Intake: IV 1000 / 1000 NS Inj 1,000 ML @ Wide Open IV. 1000 / 1000 SIG BOLUS ONE Rx#:[id number] Oral 0 / 0 Output: Urine 0 / 0 Other: # Bowel Movements 0 Weight On Admission 101.5 kg <Eliana Amaya - 12/17/17 10:41> Vital Signs 12/16/17 22:28 12/16/17 22:44 12/17/17 00:26 Temperature 99.1 F 99.2 F Pulse Rate 84 76 78 Respiratory Rate 18 18 17 Blood Pressure 156/100 H 154/65 H 178/76 H Pulse Oximetry 99 100 99 Intake & Output 12/16/17 12/16/17 12/17/17 06:59 18:59 06:59 Intake Total 1000 / 1000 Balance 1000 / 1000 Weight 98 kg Intake: IV 1000 / 1000 NS Inj 1,000 ML @ Wide Open IV. 1000 / 1000 SIG BOLUS ONE Rx#:[id number] <MaryseNicolle dooleyMirtha B - 12/17/17 01:00> Narrative: GENERAL: 37-year-old obese female resting comfortably laying in bed in [facility]. HEENT: NCAT, EOMI. MMM. Airway patent. NECK: Supple, no meningeal signs. No carotid bruits. CV: RRR, S1 S2. No murmurs. CHEST/PULM: Equal breath sounds bilaterally. Notable inspiratory and expiratory wheezing. No crackles. ABD/GI: +BS in all 4 quadrants, soft, nontender, nondistended. 3-4 cm linear surgical scar from prior peritoneal dialysis. EXT: 2+ DP pulses. No significant edema. NEURO: Awake, alert. Normal muscle tone. Grossly nonfocal. PSYCH: Mood and affect are appropriate. Speech fluent. <Mirtha Kulkarni - 12/17/17 04:41> Results - Labs Result diagrams: 12/16/17 23:05 12/17/17 04:38 <Eliana Amaya - 12/17/17 10:41> Abnormal lab results 12/16/17 12/16/17 12/16/17 Range/Units 23:00 23:05 23:05 RBC 3.25 L (4.00-5.30) mil/mm3 Hgb 10.6 L (11.6-15.3) gm/dL Hct 33.1 L (35.0-46.0) % MCV 101.7 H (80.0-100.0) fL MCHC 31.9 L (32.0-36.0) % Neut % (Auto) 79.4 H (16.0-70.0) % [place] % (Auto) 8.7 H (0.0-8.0) % Lymph # (Auto) 0.6 L (1.0-4.8) th/mm3 Sodium 124 L* (136-145) meq/L Chloride 84 L (98-107) meq/L BUN 37 H (7-18) mg/dL Creatinine 5.77 H (0.50-1.00) mg/dL Estimated GFR 8 L (>89) mL/min POC Glucose Greater than 600 H* (68-110) mg/dl Random Glucose 851 H* (74-106) mg/dL Osmolality (275-295) mosm/kg Magnesium (1.5-2.5) mg/dL Alkaline Phosphatase 119 H (45-117) U/L Lipase (73-393) U/L Beta-Hydroxybutyric Acd 1.38 H (0.00-0.39) mmol/L 12/16/17 12/16/17 12/17/17 Range/Units 23:05 23:50 01:20 RBC (4.00-5.30) mil/mm3 Hgb (11.6-15.3) gm/dL Hct (35.0-46.0) % MCV (80.0-100.0) fL MCHC (32.0-36.0) % Neut % (Auto) (16.0-70.0) % [place] % (Auto) (0.0-8.0) % Lymph # (Auto) (1.0-4.8) th/mm3 Sodium (136-145) meq/L Chloride (98-107) meq/L BUN (7-18) mg/dL Creatinine (0.50-1.00) mg/dL Estimated GFR (>89) mL/min POC Glucose Greater than 600 H* (68-110) mg/dl Random Glucose (74-106) mg/dL Osmolality 324 H (275-295) mosm/kg Magnesium (1.5-2.5) mg/dL Alkaline Phosphatase (45-117) U/L Lipase 508 H (73-393) U/L Beta-Hydroxybutyric Acd (0.00-0.39) mmol/L 12/17/17 12/17/17 12/17/17 Range/Units 01:35 04:05 04:38 RBC (4.00-5.30) mil/mm3 Hgb (11.6-15.3) gm/dL Hct (35.0-46.0) % MCV (80.0-100.0) fL MCHC (32.0-36.0) % Neut % (Auto) (16.0-70.0) % [place] % (Auto) (0.0-8.0) % Lymph # (Auto) (1.0-4.8) th/mm3 Sodium 134 L D (136-145) meq/L Chloride 95 L D (98-107) meq/L BUN 43 H (7-18) mg/dL Creatinine 6.10 H (0.50-1.00) mg/dL Estimated GFR 8 L (>89) mL/min POC Glucose 303 H (68-110) mg/dl Random Glucose 616 H* D 279 H D (74-106) mg/dL Osmolality (275-295) mosm/kg Magnesium 2.6 H (1.5-2.5) mg/dL Alkaline Phosphatase (45-117) U/L Lipase (73-393) U/L Beta-Hydroxybutyric Acd (0.00-0.39) mmol/L 12/17/17 12/17/17 12/17/17 Range/Units 05:11 06:10 07:19 RBC (4.00-5.30) mil/mm3 Hgb (11.6-15.3) gm/dL Hct (35.0-46.0) % MCV (80.0-100.0) fL MCHC (32.0-36.0) % Neut % (Auto) (16.0-70.0) % [place] % (Auto) (0.0-8.0) % Lymph # (Auto) (1.0-4.8) th/mm3 Sodium (136-145) meq/L Chloride (98-107) meq/L BUN (7-18) mg/dL Creatinine (0.50-1.00) mg/dL Estimated GFR (>89) mL/min POC Glucose 223 H 128 H 143 H (68-110) mg/dl Random Glucose (74-106) mg/dL Osmolality (275-295) mosm/kg Magnesium (1.5-2.5) mg/dL Alkaline Phosphatase (45-117) U/L Lipase (73-393) U/L Beta-Hydroxybutyric Acd (0.00-0.39) mmol/L 12/17/17 12/17/17 Range/Units 08:16 08:59 RBC (4.00-5.30) mil/mm3 Hgb (11.6-15.3) gm/dL Hct (35.0-46.0) % MCV (80.0-100.0) fL MCHC (32.0-36.0) % Neut % (Auto) (16.0-70.0) % [place] % (Auto) (0.0-8.0) % Lymph # (Auto) (1.0-4.8) th/mm3 Sodium (136-145) meq/L Chloride (98-107) meq/L BUN (7-18) mg/dL Creatinine (0.50-1.00) mg/dL Estimated GFR (>89) mL/min POC Glucose 175 H 186 H (68-110) mg/dl Random Glucose (74-106) mg/dL Osmolality (275-295) mosm/kg Magnesium (1.5-2.5) mg/dL Alkaline Phosphatase (45-117) U/L Lipase (73-393) U/L Beta-Hydroxybutyric Acd (0.00-0.39) mmol/L Short CBC 12/16/17 Range/Units 23:05 WBC 5.8 (4.0-11.0) th/mm3 Hgb 10.6 L (11.6-15.3) gm/dL Hct 33.1 L (35.0-46.0) % Plt Count 174 (150-450) th/mm3 BMP 12/16/17 12/17/17 23:05 04:38 Sodium 124 L* 134 L D Potassium 4.7 3.9 D Chloride 84 L 95 L D Carbon Dioxide 26.6 27.6 BUN 37 H 43 H Creatinine 5.77 H 6.10 H Calcium 8.5 8.8 Liver Function 12/16/17 12/17/17 Range/Units 23:05 04:38 Total Bilirubin 0.4 0.3 (0.2-1.0) mg/dL AST 17 15 (15-37) U/L ALT 23 24 (10-53) U/L Alkaline Phosphatase 119 H 117 (45-117) U/L Albumin 3.4 3.4 (3.4-5.0) g/dL <Eliana Amaya - 12/17/17 10:41> Abnormal lab results 12/16/17 12/16/17 12/16/17 Range/Units 23:00 23:05 23:05 RBC 3.25 L (4.00-5.30) mil/mm3 Hgb 10.6 L (11.6-15.3) gm/dL Hct 33.1 L (35.0-46.0) % MCV 101.7 H (80.0-100.0) fL MCHC 31.9 L (32.0-36.0) % Neut % (Auto) 79.4 H (16.0-70.0) % [place] % (Auto) 8.7 H (0.0-8.0) % Lymph # (Auto) 0.6 L (1.0-4.8) th/mm3 Sodium 124 L* (136-145) meq/L Chloride 84 L (98-107) meq/L BUN 37 H (7-18) mg/dL Creatinine 5.77 H (0.50-1.00) mg/dL Estimated GFR 8 L (>89) mL/min POC Glucose Greater than 600 H* (68-110) mg/dl Random Glucose 851 H* (74-106) mg/dL Alkaline Phosphatase 119 H (45-117) U/L Beta-Hydroxybutyric Acd 1.38 H (0.00-0.39) mmol/L Short CBC 12/16/17 Range/Units 23:05 WBC 5.8 (4.0-11.0) th/mm3 Hgb 10.6 L (11.6-15.3) gm/dL Hct 33.1 L (35.0-46.0) % Plt Count 174 (150-450) th/mm3 BMP 12/16/17 23:05 Sodium 124 L* Potassium 4.7 Chloride 84 L Carbon Dioxide 26.6 BUN 37 H Creatinine 5.77 H Calcium 8.5 Liver Function 12/16/17 Range/Units 23:05 Total Bilirubin 0.4 (0.2-1.0) mg/dL AST 17 (15-37) U/L ALT 23 (10-53) U/L Alkaline Phosphatase 119 H (45-117) U/L Albumin 3.4 (3.4-5.0) g/dL <Mirtha Kulkarni - 12/17/17 01:00> - Imaging Impressions Chest X-Ray 12/16/17 22:37 CONCLUSION: No acute cardiopulmonary disease. <Eliana Amaya - 12/17/17 10:41> Impressions Chest X-Ray 12/16/17 22:37 CONCLUSION: No acute cardiopulmonary disease. <Mirtha Kulkarni - 12/17/17 01:00> Courtney VTE Risk Assessment Courtney VTE Risk Assessment: No/Low Risk (score <= 1) <Mirtha Kulkarni - 12/17 04:41> Courtney Risk Assessment Model: Point Value = 1 Point Value = 2 Point Value = 3 Point Value = 5 Age 41-60 Minor surgery BMI > 25 kg/m2 Swollen legs Varicose veins or History of unexplained or recurrent spontaneous Oral contraceptives or hormone replacement Sepsis (< 1 month) Serious lung disease, including pneumonia (< 1 month) Abnormal pulmonary function Acute myocardial infarction Congestive heart failure (< 1 month) History of inflammatory bowel disease Medical patient at bed rest Age 61-74 Arthroscopic surgery Major open surgery (> 45 min) Laparoscopic surgery (> 45 min) Malignancy Confined to bed (> 72 hours) Immobilizing plaster cast Central venous access Age >= 75 History of VTE Family history of VTE Factor V Leiden Prothrombin [id number] Lupus anticoagulant Anticardiolipin antibodies Elevated serum homocysteine Heparin-induced thrombocytopenia Other congenital or acquired thrombophilia Stroke (< 1 month) Elective arthroplasty Hip, pelvis, or leg fracture Acute spinal cord injury (< 1 month) <Eliana Amaya - 12/17/17 10:41> Point Value = 1 Point Value = 2 Point Value = 3 Point Value = 5 Age 41-60 Minor surgery BMI > 25 kg/m2 Swollen legs Varicose veins or History of unexplained or recurrent spontaneous Oral contraceptives or hormone replacement Sepsis (< 1 month) Serious lung disease, including pneumonia (< 1 month) Abnormal pulmonary function Acute myocardial infarction Congestive heart failure (< 1 month) History of inflammatory bowel disease Medical patient at bed rest Age 61-74 Arthroscopic surgery Major open surgery (> 45 min) Laparoscopic surgery (> 45 min) Malignancy Confined to bed (> 72 hours) Immobilizing plaster cast Central venous access Age >= 75 History of VTE Family history of VTE Factor V Leiden Prothrombin [id number] Lupus anticoagulant Anticardiolipin antibodies Elevated serum homocysteine Heparin-induced thrombocytopenia Other congenital or acquired thrombophilia Stroke (< 1 month) Elective arthroplasty Hip, pelvis, or leg fracture Acute spinal cord injury (< 1 month) <Mirtha Kulkarni - 12/17/17 04:41> Prophylaxis Regimen: Total Risk Factor Score Risk Level Prophylaxis Regimen 0-1 Low Early ambulation 2 Moderate Order ONE of the following: *Sequential Compression Device (SCD) *Heparin 5000 units SQ BID 3-4 Higher Order ONE of the following medications: *Heparin 5000 units SQ TID *Enoxaparin/Lovenox 40 mg SQ daily (WT < 150 kg, CrCl > 30 mL/min) *Enoxaparin/Lovenox 30 mg SQ daily (WT < 150 kg, CrCl > 10-29 mL/min) *Enoxaparin/Lovenox 30 mg SQ BID (WT < 150 kg, CrCl > 30 mL/min) AND/OR *Sequential Compression Device (SCD) 5 or more Highest Order ONE of the following medications: *Heparin 5000 units SQ TID (Preferred with Epidurals) *Enoxaparin/Lovenox 40 mg SQ daily (WT < 150 kg, CrCl > 30 mL/min) *Enoxaparin/Lovenox 30 mg SQ daily (WT < 150 kg, CrCl > 10-29 mL/min) *Enoxaparin/Lovenox 30 mg SQ BID (WT < 150 kg, CrCl > 30 mL/min) AND *Sequential Compression Device (SCD) <Eliana Amaya - 12/17/17 10:41> Total Risk Factor Score Risk Level Prophylaxis Regimen 0-1 Low Early ambulation 2 Moderate Order ONE of the following: *Sequential Compression Device (SCD) *Heparin 5000 units SQ BID 3-4 Higher Order ONE of the following medications: *Heparin 5000 units SQ TID *Enoxaparin/Lovenox 40 mg SQ daily (WT < 150 kg, CrCl > 30 mL/min) *Enoxaparin/Lovenox 30 mg SQ daily (WT < 150 kg, CrCl > 10-29 mL/min) *Enoxaparin/Lovenox 30 mg SQ BID (WT < 150 kg, CrCl > 30 mL/min) AND/OR *Sequential Compression Device (SCD) 5 or more Highest Order ONE of the following medications: *Heparin 5000 units SQ TID (Preferred with Epidurals) *Enoxaparin/Lovenox 40 mg SQ daily (WT < 150 kg, CrCl > 30 mL/min) *Enoxaparin/Lovenox 30 mg SQ daily (WT < 150 kg, CrCl > 10-29 mL/min) *Enoxaparin/Lovenox 30 mg SQ BID (WT < 150 kg, CrCl > 30 mL/min) AND *Sequential Compression Device (SCD) <Mirtha Kulkarni - 12/17/17 01:00> Assessment and Plan - Assessment (1) Hyperglycemia Code(s): R73.9 - Hyperglycemia, unspecified Status: Resolved (2) Insulin dependent diabetes mellitus Code(s): E11.9 - Type 2 diabetes mellitus without complications; Z79.4 - halfway (current) use of insulin Status: Chronic (3) ESRD (end stage renal disease) on dialysis Code(s): N18.6 - End stage renal disease; Z99.2 - Dependence on renal dialysis Status: Chronic (4) Cough Code(s): R05 - Cough Status: Acute (5) HTN (hypertension) Code(s): I10 - Essential (primary) hypertension Status: Chronic (6) DVT prophylaxis Status: Acute <Eliana Amaya - 12/17/17 10:41> (1) Hyperglycemia Code(s): R73.9 - Hyperglycemia, unspecified Status: Acute Plan: Significant hyperglycemia on admission to ED. CMP ordered in ED showed BGL 851, Anion gap WNL and serum potassium WNL. Unable to obtain UA due to oliguria. Unable to give aggressive fluid resuscitation due to ERSD on dialysis. Patient given 10 unit of insulin in ED. Bedside glucose > 600 following insulin administration. Labs: -STAT ABG ordered -Lipase ordered -Magnesium level ordered -Serum osmolality ordered -UA ordered, though unlikely to be collected due to oliguria -HbA1C ordered -Continue hourly accuchecks -Repeat CMP, Mg, Phos, Beta-hydroxybutyrate for 4AM Medications: -Plan to insulin drip at 10 units/hr (0.1 units/kg/hr) upon arrival to floor. Will discontinue once BGL < 250 -Update per ED nurse: Status-post 10 unit insulin bolus, patient's BGL decreased from 851 to 616. Pending transfer to ICU, will give another 10 unit insulin bolus. Will follow up accucheck 1 hr following insulin bolus and continue with either insulin bolus q1-2hr vs. insulin drip at that time. -Will start subQ insulin once BGL < 250 -Hypoglycemia protocol -Keep on continuous cardiac telemetry Consults: -clinical nurse educator (2) ESRD (end stage renal disease) on dialysis Code(s): N18.6 - End stage renal disease; Z99.2 - Dependence on renal dialysis Status: Acute Plan: Patient with history of ESRD on dailysis (MWF). Patient states that she underwent as distress session of dialysis on 12/16/17, where extra fluid was dialyzed. Mature fistula in left arm. Patient states that she is currently oliguric. CMP showed: BUN 37 & creatinine 5.77 mildly improved from last admission. GFR 8 consistent with ESRD. Consult: -Nephrology consulted (3) Cough Code(s): R05 - Cough Status: Acute Plan: Patient with history of cough productive of white or yellow phlegm 1 week. Imaging: -Portable chest x-ray ordered in ED showed no acute cardiopulmonary disease. -Will order 2 view CXR AP/LAT Labs: -CBC ordered in ED: WBC 5.8 -Respiratory panel ordered (4) HTN (hypertension) Code(s): I10 - Essential (primary) hypertension Status: Acute Plan: Patient with history of hypertension. Patient's blood pressure 178/76 on admission. -Will continue home amlodipine 2.5 mg PO -Will hold home clonidine for now (5) Nutrition, metabolism, and development symptoms Code(s): R63.8 - Other symptoms and signs concerning food and fluid intake Status: Acute Plan: Diet: Keep patient NPO for now. Once BGL <250, if patient willing to eat, will change to diabetic diet. Electrolytes: CMP showed sodium 124, however, corrected sodium calculated to be 136 due to hyperglycemia of 851. No correction needed at this time. Potassium 4.7, which are WNL. Continue to monitor electrolytes and replenish as needed. Fluids: Avoid aggressive fluid management due to history of ESRD (6) DVT prophylaxis Status: Acute Plan: DVT prophylaxis: SCDs <Mirtha Kulkarni - 12/17/17 04:32> - Assessment and Plan Patient admitted to critical care unit for close continued monitoring of blood glucose levels while on insulin drip. We will continue to monitor blood glucose levels closely and de-escalate insulin administration as needed. Nephrology consult for end-stage renal disease. <Mirtha Kulkarni - 12/17/17 04:41> <MoniqueEliana - Last Filed: 12/17/17 10:41> (5) HTN (hypertension) Qualifiers: Hypertension type: essential hypertension Qualified Code(s): I10 - Essential (primary) hypertension <MakaylaEliana tillman - Last Filed: 12/17/17 10:41> (5) HTN (hypertension) Qualifiers: Hypertension type: essential hypertension Qualified Code(s): I10 - Essential (primary) hypertension
[2017-12-17] MEDS ORDERED: Dextrose 50% in Water 50 ML Vial IV.PUSH PRN ×2 (01:24→08:41)
[2017-12-17] MEDS ORDERED: Insulin Regular (For Infusion) 100 UNIT in Sodium Chlor 0.9% Inj 99 ML IV.CONT PRN (01:24)
[2017-12-17] MEDS ORDERED: Sodium Phosphate Inj 15 MMOL in Sodium Chlor 0.9% Inj 100 ML IV.SIG PRN (01:24)
[2017-12-17] MEDS ORDERED: Potassium Chlor 20 mEq Premix 20 MEQ/100 ML PIGGYBACK IV.SIG ONE (01:30)
[2017-12-17] MEDS ORDERED: amLODIPine 5 MG Tablet PO SCH ×2 (02:09→09:00)
[2017-12-17] MEDS ORDERED: Chlorhexidine Gluconate 2% 1 Pack (2 Cloths) TOPICAL SCH (04:00)
[2017-12-17] MEDS ORDERED: Chlorhexidine Gluconate 2% 1 Pack (2 Cloths) TOPICAL PRN (04:00)
[2017-12-17 06:38] LABS: Alanine Aminotransferase 24 U/L (10-53); Albumin 3.4 g/dL (3.4-5.0); Alkaline Phosphatase 117 U/L (45-117); Anion Gap 11 meq/L (5-15); Aspartate Aminotransferase 15 U/L (15-37); Beta Hydroxybutyric Acid 0.11 mmol/L (0.00-0.39); Blood Urea Nitrogen 43 mg/dL (7-18); Calcium 8.8 mg/dL (8.5-10.1); Carbon Dioxide 27.6 meq/L (21.0-32.0); Chloride 95 meq/L (98-107); Glomerular Filtration Rate 8 mL/min (>89); Glucose,Random 279 mg/dL (74-106); Magnesium 2.6 mg/dL (1.5-2.5); Potassium 3.9 meq/L (3.5-5.1); Sodium 134 meq/L (136-145); Total Protein 7.5 g/dL (6.4-8.2)
--- NOTE | 2017-12-17 07:25 | P.PNFP ---
Subjective Interval history: This progress note is written in conjunction with resident H&P dated 12/17/2017. Sara Richmond is a 37yo lady with h/o insulin-dependent diabetes mellitus and ESRD on hemodialysis admitted for hyperglycemia after running out of her insulin for a few days. Overnight, her glucose improved significantly with insulin administration. This morning, she reports no nausea. She feels ready to eat. She denies SOB. Additional information: Pt reports h/o DVT in her right arm years ago secondary to permcath. She has not been on anticoagulation for years. Results - Labs Result diagrams: 12/16/17 23:05 12/17/17 04:38 Abnormal lab results 12/16/17 12/16/17 12/16/17 Range/Units 23:00 23:05 23:05 RBC 3.25 L (4.00-5.30) mil/mm3 Hgb 10.6 L (11.6-15.3) gm/dL Hct 33.1 L (35.0-46.0) % MCV 101.7 H (80.0-100.0) fL MCHC 31.9 L (32.0-36.0) % Neut % (Auto) 79.4 H (16.0-70.0) % Mower % (Auto) 8.7 H (0.0-8.0) % Lymph # (Auto) 0.6 L (1.0-4.8) th/mm3 Sodium 124 L* (136-145) meq/L Chloride 84 L (98-107) meq/L BUN 37 H (7-18) mg/dL Creatinine 5.77 H (0.50-1.00) mg/dL Estimated GFR 8 L (>89) mL/min POC Glucose Greater than 600 H* (68-110) mg/dl Random Glucose 851 H* (74-106) mg/dL Osmolality (275-295) mosm/kg Magnesium (1.5-2.5) mg/dL Alkaline Phosphatase 119 H (45-117) U/L Lipase (73-393) U/L Beta-Hydroxybutyric Acd 1.38 H (0.00-0.39) mmol/L 12/16/17 12/16/17 12/17/17 Range/Units 23:05 23:50 01:20 RBC (4.00-5.30) mil/mm3 Hgb (11.6-15.3) gm/dL Hct (35.0-46.0) % MCV (80.0-100.0) fL MCHC (32.0-36.0) % Neut % (Auto) (16.0-70.0) % Mower % (Auto) (0.0-8.0) % Lymph # (Auto) (1.0-4.8) th/mm3 Sodium (136-145) meq/L Chloride (98-107) meq/L BUN (7-18) mg/dL Creatinine (0.50-1.00) mg/dL Estimated GFR (>89) mL/min POC Glucose Greater than 600 H* (68-110) mg/dl Random Glucose (74-106) mg/dL Osmolality 324 H (275-295) mosm/kg Magnesium (1.5-2.5) mg/dL Alkaline Phosphatase (45-117) U/L Lipase 508 H (73-393) U/L Beta-Hydroxybutyric Acd (0.00-0.39) mmol/L 12/17/17 12/17/17 12/17/17 Range/Units 01:35 04:05 04:38 RBC (4.00-5.30) mil/mm3 Hgb (11.6-15.3) gm/dL Hct (35.0-46.0) % MCV (80.0-100.0) fL MCHC (32.0-36.0) % Neut % (Auto) (16.0-70.0) % Mower % (Auto) (0.0-8.0) % Lymph # (Auto) (1.0-4.8) th/mm3 Sodium 134 L D (136-145) meq/L Chloride 95 L D (98-107) meq/L BUN 43 H (7-18) mg/dL Creatinine 6.10 H (0.50-1.00) mg/dL Estimated GFR 8 L (>89) mL/min POC Glucose 303 H (68-110) mg/dl Random Glucose 616 H* D 279 H D (74-106) mg/dL Osmolality (275-295) mosm/kg Magnesium 2.6 H (1.5-2.5) mg/dL Alkaline Phosphatase (45-117) U/L Lipase (73-393) U/L Beta-Hydroxybutyric Acd (0.00-0.39) mmol/L 12/17/17 12/17/17 12/17/17 Range/Units 05:11 06:10 07:19 RBC (4.00-5.30) mil/mm3 Hgb (11.6-15.3) gm/dL Hct (35.0-46.0) % MCV (80.0-100.0) fL MCHC (32.0-36.0) % Neut % (Auto) (16.0-70.0) % Mower % (Auto) (0.0-8.0) % Lymph # (Auto) (1.0-4.8) th/mm3 Sodium (136-145) meq/L Chloride (98-107) meq/L BUN (7-18) mg/dL Creatinine (0.50-1.00) mg/dL Estimated GFR (>89) mL/min POC Glucose 223 H 128 H 143 H (68-110) mg/dl Random Glucose (74-106) mg/dL Osmolality (275-295) mosm/kg Magnesium (1.5-2.5) mg/dL Alkaline Phosphatase (45-117) U/L Lipase (73-393) U/L Beta-Hydroxybutyric Acd (0.00-0.39) mmol/L Short CBC 12/16/17 Range/Units 23:05 WBC 5.8 (4.0-11.0) th/mm3 Hgb 10.6 L (11.6-15.3) gm/dL Hct 33.1 L (35.0-46.0) % Plt Count 174 (150-450) th/mm3 BMP 12/16/17 12/17/17 23:05 04:38 Sodium 124 L* 134 L D Potassium 4.7 3.9 D Chloride 84 L 95 L D Carbon Dioxide 26.6 27.6 BUN 37 H 43 H Creatinine 5.77 H 6.10 H Calcium 8.5 8.8 Liver Function 12/16/17 12/17/17 Range/Units 23:05 04:38 Total Bilirubin 0.4 0.3 (0.2-1.0) mg/dL AST 17 15 (15-37) U/L ALT 23 24 (10-53) U/L Alkaline Phosphatase 119 H 117 (45-117) U/L Albumin 3.4 3.4 (3.4-5.0) g/dL - Imaging Impressions Chest X-Ray 12/16/17 22:37 CONCLUSION: No acute cardiopulmonary disease. Physical Exam Vital signs: Vital Signs 12/16/17 22:28 12/16/17 22:44 12/17/17 00:26 Temperature 99.1 F 99.2 F Pulse Rate 84 76 78 Respiratory Rate 18 18 17 Blood Pressure 156/100 H 154/65 H 178/76 H Pulse Oximetry 99 100 99 12/17/17 01:25 12/17/17 02:38 Temperature 98.4 F Pulse Rate 80 74 Respiratory Rate 16 20 Blood Pressure 146/62 H 156/70 H Pulse Oximetry 100 99 Intake & Output 12/16/17 12/17/17 12/17/17 18:59 06:59 18:59 Intake Total 1000 / 1000 Balance 1000 / 1000 Weight 101.5 kg Intake: IV 1000 / 1000 NS Inj 1,000 ML @ Wide Open IV. 1000 / 1000 SIG BOLUS ONE Rx#:[id number] Other: Weight On Admission 101.5 kg Narrative: Per resident H&P. Significant for: In NAD, no resp distress, nontoxic. Lying comfortably in bed. Wheeze noted in prior H&P has resolved. Good air movement. Left arm - thrill at AV fistula. Assessment and Plan - Assessment (1) Hyperglycemia Code(s): R73.9 - Hyperglycemia, unspecified Status: Resolved Plan: Secondary to not having rx for her insulin. No evidence of DKA or HHS, with normal anion gap, beta hydroxybutyrate. Responded well to IV insulin; no insulin drip was needed. Restart home medications today and provide script. Pt with appt at PCP this week to establish care. 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 Pt with appt with PCP as above. Management as above. Record review reveals a1c of 8.0% 04/2017. (3) ESRD (end stage renal disease) on dialysis Code(s): N18.6 - End stage renal disease; Z99.2 - Dependence on renal dialysis Status: Chronic Plan: Patient with history of ESRD on dialysis (MWF). Mature AV fistula in left arm. Consult: -Nephrology consulted. Pt is not due for dialysis until Monday. (4) Cough Code(s): R05 - Cough Status: Acute Plan: Patient with history of cough productive of white or yellow phlegm 1 week. Overnight, cough has improved and lung exam has improved as well. Imaging: -Portable chest x-ray ordered in ED showed no acute cardiopulmonary disease. -Will order 2 view CXR AP/LAT for better picture. Labs: -CBC ordered in ED: WBC 5.8, reassuring -Respiratory panel ordered (5) HTN (hypertension) Code(s): I10 - Essential (primary) hypertension Status: Chronic Plan: Patient with history of hypertension. Patient's blood pressure 178/76 on admission, and remained elevated throughout the night. -Continue home amlodipine 10 mg PO -Resume home medications at discharge (6) DVT prophylaxis Status: Acute Plan: DVT prophylaxis: SCDs If patient remains in the hospital, will need to add SQ heparin. - Assessment and Plan Patient admitted to critical care unit for close continued monitoring of blood glucose levels while on insulin drip. We will continue to monitor blood glucose levels closely and de-escalate insulin administration as needed. Nephrology consult for end-stage renal disease. Discharge Planning: Possible discharge today, pending stability of glucose and ability to tolerate PO. - Attending Attestation Patient seen, examined, and discussed with resident team on morning rounds today , approx 0830. I certify that inpatient stay is warranted and that a 2 midnight stay was suspected for reasons documented in H&P. Pt improved more quickly than anticipated, thus likely discharge today. (5) HTN (hypertension) Qualifiers: Hypertension type: essential hypertension Qualified Code(s): I10 - Essential (primary) hypertension
[2017-12-17] MEDS ORDERED: Sertraline 50 MG Tablet PO SCH (09:00)
[2017-12-17] MEDS ORDERED: Sertraline 100 MG Tablet PO SCH (10:00)
[2017-12-17] MEDS ORDERED: amLODIPine 10 MG Tablet PO SCH (10:00)
[2017-12-17 11:39] LABS: Hemoglobin A1c 9.9 % (4.3-6.0)
[2017-12-17] MEDS ORDERED: Insulin NovoLIN Regular Correctional Sugar Inj SQ SCH (12:00)
--- NOTE | 2017-12-17 12:00 | XR ---
EXAM DATE: 12/17/2017 11:51 AM EDT AGE/SEX: 37 years / Female INDICATIONS: . Short of Breath CLINICAL DATA: This is the patient's initial encounter. Patient reports that signs and symptoms have been present for 1 day and indicates a pain score of 0/10. MEDICAL/SURGICAL HISTORY: . Hypertension. Diabetes. Cardiac disorders. Stage V renal failure. ESRD. . AV fistula. Vasocath. COMPARISON: [facility] – [place], CHEST 1V SINGLE AP, 12/16/2017. . FINDINGS: PA and lateral views of the chest demonstrate the lungs to be symmetrically aerated without evidence of mass, infiltrate or effusion. The cardiomediastinal contours are unremarkable. Osseous structures are intact. CONCLUSION: Negative examination. Electronically signed by: Barbie Beckham MD 12/17/2017 11:58 AM EDT
--- NOTE | 2017-12-17 13:16 | ECG ---
Date Performed: 12/17/2017 Time Performed: 10:26:06 PTAGE: 37 years EKG: Sinus rhythm NORMAL ECG PREVIOUS TRACING : 10/27/2017 02.41 Since the previous tracing, no significant change noted DOCTOR: Ramakrishna Grover Interpretating Date/Time 12/17/2017 13:14:45
== END 2017-12-17 14:40 | disposition home or self-care (01) ==
LOC: NEPC 21:59 → NEDA 12-17 00:39 → HIMC 12-17 03:10
PROVIDERS: ADMIT Family Medicine; ATTEND Family Medicine

== ENCOUNTER 2018-04-13 21:35 | Inpatient (IN) ==
[2018-04-13] MEDS ORDERED: MethylPREDNISolone Sod Succinate Inj 125 MG/2 ML Vial IV.PUSH ONE (22:03)
--- NOTE | 2018-04-13 22:29 | XR ---
EXAM DATE: 04/13/2018 10:20 PM EST AGE/SEX: 37 years / Female INDICATIONS: Short of breath. CLINICAL DATA: This is the patient's initial encounter. Patient reports that signs and symptoms have been present for 1 month and indicates a pain score of 0/10. MEDICAL/SURGICAL HISTORY: . Hypertension. Diabetes. Cardiac disorders. Stage V renal failure. E SRD. . AV fistula. Vasocath. . COMPARISON: [facility] – [place], CHEST 2V PA&LAT, 12/17/2017. . FINDINGS: A single AP view of the chest demonstrates the lungs to be symmetrically aerated without evidence of mass, infiltrate or effusion. The cardiomediastinal contours are unremarkable. Osseous structures a re intact. CONCLUSION: No acute findings. Electronically signed by: Abel Redding MD Board Certified Radiologist 04/13/2018 10:28 PM EST
--- NOTE | 2018-04-13 22:30 | ED ---
HPI General Chief complaint: Respiratory Symptoms Stated complaint: cough Time Seen by Provider: 04/13/18 21:53 Source: patient Mode of arrival: ambulatory Limitations: no limitations History of Present Illness HPI narrative: Patient is a 37-year-old female presenting to the emergency department for evaluation of shortness of breath. Patient reports that she has had a cough for the past month. Over the last several days her cough has become productive with yellow mucus, she reports chest tightness, fatigue. She states her chest feels tight, she has been taking upar-unu-yulrifs [place] Mucinex with no improvement. Patient reports a history of end-stage renal disease on hemodialysis. She was last dialyzed yesterday. Medical history is significant for hypertension, type 2 diabetes. Patient states her blood glucose has been in the 400s. She has not had any documented fevers. Symptom onset was gradual, symptoms are moderate. Patient denies any other complaints at this time. Related Data Home Medications Medication Instructions Recorded Confirmed calcium acetate 667 mg PO TID 10/27/17 04/14/18 sertraline [Zoloft] 100 mg PO DAILY 12/16/17 04/14/18 Previous Rx's Medication Instructions Recorded albuterol sulfate [Ventolin HFA] 2 inh INHALATION Q4-6H PRN #18 g 04/16/18 amlodipine 10 mg PO DAILY 30 Days #30 tab 04/16/18 azithromycin 500 mg PO DAILY 7 Days #14 tab 04/16/18 budesonide-formoterol [Symbicort] 2 puff INHALATION BID 10 Days 04/16/18 #10.2 g clonidine HCl 0.2 mg PO DAILY 30 Days #30 tab 04/16/18 guaifenesin [Mucinex] 600 mg PO BID 10 Days #20 tab 04/16/18 insulin NPH isoph U-100 human 30 unit SUB-Q BID 30 Days #18 ml 04/16/18 [Novolin N NPH U-100 Insulin] insulin aspart U-100 [Novolog 3 unit SUBCUT TIDAC 30 Days #10 ml 04/16/18 U-100 Insulin aspart] Allergies Allergy/AdvReac Type Severity Reaction Status Date / Time penicillin G Allergy Severe HIVES,RASH Verified 10/27/17 00:54 Review of Systems ROS: all other systems reviewed are negative ON LICENSE OF [facility] Medical History Medical History Anemia (Acute) DVT (deep venous thrombosis) (Acute) Diabetes (Acute) Hemodialysis access site with arteriovenous graft (Acute) Hypertension (Acute) PVD (peripheral vascular disease) (Acute) Renal failure (Acute) Secondary hyperparathyroidism (Acute) Social History Social History Substance History: No History of Abuse Second Hand Smoke Exposure: No Smoking Status: Never smoker How Often Do You Have a Drink Containing Alcohol: Never Recent Travel in [facility] within the Last 8 Weeks: No Recent Out of Country Travel within the Last 8 Weeks: No Immunization History Tetanus Immunization: Unsure Exam Narrative Exam Narrative: GENERAL: Overweight, well-developed, alert female. Appears uncomfortable, no acute distress. SKIN: Focused skin assessment warm/dry. HEAD: Atraumatic. Normocephalic. EYES: Pupils equal and round. No scleral icterus. No injection or drainage. ENT: No nasal bleeding or discharge. Mucous membranes pink and moist. NECK: Trachea midline. No JVD. CARDIOVASCULAR: Tachycardic. No murmur appreciated. Left upper arm AV fistula , positive thrill, positive bruit. RESPIRATORY: Tachypnea, coarse breath sounds throughout. GASTROINTESTINAL: Abdomen soft, non-tender, nondistended. Hepatic and splenic margins not palpable. MUSCULOSKELETAL: No obvious deformities. No clubbing. No cyanosis. No edema. NEUROLOGICAL: Awake and alert. No obvious cranial nerve deficits. Motor grossly within normal limits. Normal speech. PSYCHIATRIC: Appropriate mood and affect; insight and judgment normal. Course Initial Documented Vital Signs Temperature 98.3 F 04/13/18 21:46 Pulse Rate 80 04/13/18 21:46 Respiratory Rate 22 04/13/18 21:46 Blood Pressure 201/88 H 04/13/18 21:46 Pulse Oximetry 95 04/13/18 21:46 Last Documented Vital Signs Temperature 97.9 F 04/16/18 12:00 Pulse Rate 78 04/16/18 14:04 Respiratory Rate 17 04/16/18 14:04 Blood Pressure 127/72 04/16/18 12:00 Pulse Oximetry 94 L 04/16/18 12:00 Medical Decision Making BEVERLEY Attestation BEVERLEY supervised visit: Yes Attestation: I, Dr. Harley, have reviewed the advance practice practitioner's documentation and am in agreement, met with the patient face to face, made the diagnosis, and the medical decision making was done by me. *My assessment and Findings: pt to be admitted 2/2 dyspnea, cough and chest tightness with DM, HTN, ESRD. CTA pending at time of dictation. pt ambulated in ED yielding an o2 sat approx 95% on RA however pt tachycardic upon return to her room. MDM Narrative Medical decision making narrative: Patient is a 37-year-old female presenting to the emergency department for increasing shortness of breath of the last several days. Patient is hypertensive and tachycardic on arrival. Labs and imaging ordered and pending, duo nebs and Solu-Medrol ordered. Chest x-ray shows no acute disease CBC with no acute findings Chemistry with elevated BUN and creatinine, this is an expected finding, blood glucose is elevated at 431, Na+ 126. Corrected sodium is 132. Pt was reassessed after administration of nebs/meds. She was ambulated, pt became symptomatic reporting increased SOB and her HR went up to 111. Pt will be admitted for OBS, pt is followed by Dr. Barraza for nephrology. She is due to have dialysis tomorrow. Dr. Waddell requested CTA be perfromed to r/o PE. This was ordered, per Dr. Waddell the patient can receive IV contrast if she is to be dialyzed tomorrow. She stated to admit patient. Medical Screen Exam Complete: Yes Emergency Medical Condition: Yes Differential Diagnosis Differential Diagnosis: Bronchitis vs PNA vs metabolic abnormality vs CHF vs other Lab Data Lab results reviewed: Yes I reviewed the patient's lab results. Result diagrams: 04/15/18 04:19 04/15/18 20:44 Lab Results 04/13/18 04/13/18 04/13/18 Range/Units 22:05 22:05 22:05 WBC 9.6 (4.0-11.0) th/mm3 RBC 4.27 (4.00-5.30) mil/mm3 Hgb 14.1 (11.6-15.3) gm/dL Hct 42.1 (35.0-46.0) % MCV 98.6 (80.0-100.0) fL MCH 33.1 (27.0-34.0) pg MCHC 33.6 (32.0-36.0) % RDW 14.0 (11.6-17.2) % Plt Count 180 (150-450) th/mm3 MPV 7.5 (7.0-11.0) fL Neut % (Auto) 78.3 H (16.0-70.0) % Lymph % (Auto) 14.4 (9.0-44.0) % [place] % (Auto) 5.4 (0.0-8.0) % Eos % (Auto) 1.3 (0.0-4.0) % Baso % (Auto) 0.6 (0.0-2.0) % Neut # (Auto) 7.5 (1.8-7.7) th/mm3 Lymph # (Auto) 1.4 (1.0-4.8) th/mm3 [place] # (Auto) 0.5 (0.0-0.9) th/mm3 Eos # (Auto) 0.1 (0.0-0.4) th/mm3 Baso # (Auto) 0.1 (0.0-0.2) th/mm3 WBC Differential . Differential Comment Auto diff final Sodium 126 L (136-145) meq/L Potassium 4.2 (3.5-5.1) meq/L Chloride 90 L (98-107) meq/L Carbon Dioxide 24.0 (21.0-32.0) meq/L Anion Gap 12 (5-15) meq/L BUN 56 H (7-18) mg/dL Creatinine 10.75 H* (0.50-1.00) mg/dL Estimated GFR 4 L (>89) mL/min POC Glucose (68-110) mg/dl Random Glucose 431 H (74-106) mg/dL Calcium 9.1 (8.5-10.1) mg/dL Magnesium 3.0 H (1.5-2.5) mg/dL Total Bilirubin 0.3 (0.2-1.0) mg/dL AST 13 L (15-37) U/L ALT 16 (10-53) U/L Alkaline Phosphatase 163 H (45-117) U/L Total Creatine Kinase 55 (26-192) U/L Troponin I Less than 0.02 L (0.02-0.05) ng/mL B-Natriuretic Peptide 48 (0-100) pg/mL Total Protein 8.3 H (6.4-8.2) g/dL Albumin 3.6 (3.4-5.0) g/dL Hepatitis A IgM Ab (Nonreactive) Hep Bs Antigen (Nonreactive) Hep B Core IgM Ab (Nonreactive) Hep C IgG Ab (Nonreactive) 04/14/18 04/14/18 04/14/18 Range/Units 05:03 09:01 10:31 WBC (4.0-11.0) th/mm3 RBC (4.00-5.30) mil/mm3 Hgb (11.6-15.3) gm/dL Hct (35.0-46.0) % MCV (80.0-100.0) fL MCH (27.0-34.0) pg MCHC (32.0-36.0) % RDW (11.6-17.2) % Plt Count (150-450) th/mm3 MPV (7.0-11.0) fL Neut % (Auto) (16.0-70.0) % Lymph % (Auto) (9.0-44.0) % [place] % (Auto) (0.0-8.0) % Eos % (Auto) (0.0-4.0) % Baso % (Auto) (0.0-2.0) % Neut # (Auto) (1.8-7.7) th/mm3 Lymph # (Auto) (1.0-4.8) th/mm3 [place] # (Auto) (0.0-0.9) th/mm3 Eos # (Auto) (0.0-0.4) th/mm3 Baso # (Auto) (0.0-0.2) th/mm3 WBC Differential Differential Comment Sodium (136-145) meq/L Potassium (3.5-5.1) meq/L Chloride (98-107) meq/L Carbon Dioxide (21.0-32.0) meq/L Anion Gap (5-15) meq/L BUN (7-18) mg/dL Creatinine (0.50-1.00) mg/dL Estimated GFR (>89) mL/min POC Glucose 427 H 581 H* (68-110) mg/dl Random Glucose (74-106) mg/dL Calcium (8.5-10.1) mg/dL Magnesium (1.5-2.5) mg/dL Total Bilirubin (0.2-1.0) mg/dL AST (15-37) U/L ALT (10-53) U/L Alkaline Phosphatase (45-117) U/L Total Creatine Kinase (26-192) U/L Troponin I (0.02-0.05) ng/mL B-Natriuretic Peptide (0-100) pg/mL Total Protein (6.4-8.2) g/dL Albumin (3.4-5.0) g/dL Hepatitis A IgM Ab Nonreactive (Nonreactive) Hep Bs Antigen Nonreactive (Nonreactive) Hep B Core IgM Ab Nonreactive (Nonreactive) Hep C IgG Ab Nonreactive (Nonreactive) 04/14/18 04/14/18 04/14/18 Range/Units 12:00 12:02 16:33 WBC (4.0-11.0) th/mm3 RBC (4.00-5.30) mil/mm3 Hgb (11.6-15.3) gm/dL Hct (35.0-46.0) % MCV (80.0-100.0) fL MCH (27.0-34.0) pg MCHC (32.0-36.0) % RDW (11.6-17.2) % Plt Count (150-450) th/mm3 MPV (7.0-11.0) fL Neut % (Auto) (16.0-70.0) % Lymph % (Auto) (9.0-44.0) % [place] % (Auto) (0.0-8.0) % Eos % (Auto) (0.0-4.0) % Baso % (Auto) (0.0-2.0) % Neut # (Auto) (1.8-7.7) th/mm3 Lymph # (Auto) (1.0-4.8) th/mm3 [place] # (Auto) (0.0-0.9) th/mm3 Eos # (Auto) (0.0-0.4) th/mm3 Baso # (Auto) (0.0-0.2) th/mm3 WBC Differential Differential Comment Sodium (136-145) meq/L Potassium (3.5-5.1) meq/L Chloride (98-107) meq/L Carbon Dioxide (21.0-32.0) meq/L Anion Gap (5-15) meq/L BUN (7-18) mg/dL Creatinine (0.50-1.00) mg/dL Estimated GFR (>89) mL/min POC Glucose Greater than 600 H* 206 H (68-110) mg/dl Random Glucose 647 H* D (74-106) mg/dL Calcium (8.5-10.1) mg/dL Magnesium (1.5-2.5) mg/dL Total Bilirubin (0.2-1.0) mg/dL AST (15-37) U/L ALT (10-53) U/L Alkaline Phosphatase (45-117) U/L Total Creatine Kinase (26-192) U/L Troponin I (0.02-0.05) ng/mL B-Natriuretic Peptide (0-100) pg/mL Total Protein (6.4-8.2) g/dL Albumin (3.4-5.0) g/dL Hepatitis A IgM Ab (Nonreactive) Hep Bs Antigen (Nonreactive) Hep B Core IgM Ab (Nonreactive) Hep C IgG Ab (Nonreactive) 04/14/18 04/15/18 04/15/18 Range/Units 21:07 00:42 03:04 WBC (4.0-11.0) th/mm3 RBC (4.00-5.30) mil/mm3 Hgb (11.6-15.3) gm/dL Hct (35.0-46.0) % MCV (80.0-100.0) fL MCH (27.0-34.0) pg MCHC (32.0-36.0) % RDW (11.6-17.2) % Plt Count (150-450) th/mm3 MPV (7.0-11.0) fL Neut % (Auto) (16.0-70.0) % Lymph % (Auto) (9.0-44.0) % [place] % (Auto) (0.0-8.0) % Eos % (Auto) (0.0-4.0) % Baso % (Auto) (0.0-2.0) % Neut # (Auto) (1.8-7.7) th/mm3 Lymph # (Auto) (1.0-4.8) th/mm3 [place] # (Auto) (0.0-0.9) th/mm3 Eos # (Auto) (0.0-0.4) th/mm3 Baso # (Auto) (0.0-0.2) th/mm3 WBC Differential Differential Comment Sodium (136-145) meq/L Potassium (3.5-5.1) meq/L Chloride (98-107) meq/L Carbon Dioxide (21.0-32.0) meq/L Anion Gap (5-15) meq/L BUN (7-18) mg/dL Creatinine (0.50-1.00) mg/dL Estimated GFR (>89) mL/min POC Glucose 353 H 237 H 144 H (68-110) mg/dl Random Glucose (74-106) mg/dL Calcium (8.5-10.1) mg/dL Magnesium (1.5-2.5) mg/dL Total Bilirubin (0.2-1.0) mg/dL AST (15-37) U/L ALT (10-53) U/L Alkaline Phosphatase (45-117) U/L Total Creatine Kinase (26-192) U/L Troponin I (0.02-0.05) ng/mL B-Natriuretic Peptide (0-100) pg/mL Total Protein (6.4-8.2) g/dL Albumin (3.4-5.0) g/dL Hepatitis A IgM Ab (Nonreactive) Hep Bs Antigen (Nonreactive) Hep B Core IgM Ab (Nonreactive) Hep C IgG Ab (Nonreactive) 04/15/18 04/15/18 04/15/18 Range/Units 04:19 04:19 07:33 WBC 10.9 (4.0-11.0) th/mm3 RBC 4.04 (4.00-5.30) mil/mm3 Hgb 13.3 (11.6-15.3) gm/dL Hct 39.0 (35.0-46.0) % MCV 96.6 (80.0-100.0) fL MCH 33.0 (27.0-34.0) pg MCHC 34.1 (32.0-36.0) % RDW 13.9 (11.6-17.2) % Plt Count 182 (150-450) th/mm3 MPV 7.8 (7.0-11.0) fL Neut % (Auto) 82.0 H (16.0-70.0) % Lymph % (Auto) 12.3 (9.0-44.0) % [place] % (Auto) 5.1 (0.0-8.0) % Eos % (Auto) 0.2 (0.0-4.0) % Baso % (Auto) 0.4 (0.0-2.0) % Neut # (Auto) 9.0 H (1.8-7.7) th/mm3 Lymph # (Auto) 1.3 (1.0-4.8) th/mm3 [place] # (Auto) 0.6 (0.0-0.9) th/mm3 Eos # (Auto) 0.0 (0.0-0.4) th/mm3 Baso # (Auto) 0.0 (0.0-0.2) th/mm3 WBC Differential . Differential Comment Auto diff final Sodium 133 L (136-145) meq/L Potassium 3.8 (3.5-5.1) meq/L Chloride 93 L (98-107) meq/L Carbon Dioxide 29.2 (21.0-32.0) meq/L Anion Gap 11 (5-15) meq/L BUN 50 H (7-18) mg/dL Creatinine 8.80 H (0.50-1.00) mg/dL Estimated GFR 5 L (>89) mL/min POC Glucose 51 L (68-110) mg/dl Random Glucose 113 H D (74-106) mg/dL Calcium 9.3 (8.5-10.1) mg/dL Magnesium (1.5-2.5) mg/dL Total Bilirubin (0.2-1.0) mg/dL AST (15-37) U/L ALT (10-53) U/L Alkaline Phosphatase (45-117) U/L Total Creatine Kinase (26-192) U/L Troponin I (0.02-0.05) ng/mL B-Natriuretic Peptide (0-100) pg/mL Total Protein (6.4-8.2) g/dL Albumin (3.4-5.0) g/dL Hepatitis A IgM Ab (Nonreactive) Hep Bs Antigen (Nonreactive) Hep B Core IgM Ab (Nonreactive) Hep C IgG Ab (Nonreactive) 04/15/18 04/15/18 04/15/18 Range/Units 08:20 12:02 15:55 WBC (4.0-11.0) th/mm3 RBC (4.00-5.30) mil/mm3 Hgb (11.6-15.3) gm/dL Hct (35.0-46.0) % MCV (80.0-100.0) fL MCH (27.0-34.0) pg MCHC (32.0-36.0) % RDW (11.6-17.2) % Plt Count (150-450) th/mm3 MPV (7.0-11.0) fL Neut % (Auto) (16.0-70.0) % Lymph % (Auto) (9.0-44.0) % [place] % (Auto) (0.0-8.0) % Eos % (Auto) (0.0-4.0) % Baso % (Auto) (0.0-2.0) % Neut # (Auto) (1.8-7.7) th/mm3 Lymph # (Auto) (1.0-4.8) th/mm3 [place] # (Auto) (0.0-0.9) th/mm3 Eos # (Auto) (0.0-0.4) th/mm3 Baso # (Auto) (0.0-0.2) th/mm3 WBC Differential Differential Comment Sodium (136-145) meq/L Potassium (3.5-5.1) meq/L Chloride (98-107) meq/L Carbon Dioxide (21.0-32.0) meq/L Anion Gap (5-15) meq/L BUN (7-18) mg/dL Creatinine (0.50-1.00) mg/dL Estimated GFR (>89) mL/min POC Glucose 156 H 460 H* Greater than 600 H* (68-110) mg/dl Random Glucose (74-106) mg/dL Calcium (8.5-10.1) mg/dL Magnesium (1.5-2.5) mg/dL Total Bilirubin (0.2-1.0) mg/dL AST (15-37) U/L ALT (10-53) U/L Alkaline Phosphatase (45-117) U/L Total Creatine Kinase (26-192) U/L Troponin I (0.02-0.05) ng/mL B-Natriuretic Peptide (0-100) pg/mL Total Protein (6.4-8.2) g/dL Albumin (3.4-5.0) g/dL Hepatitis A IgM Ab (Nonreactive) Hep Bs Antigen (Nonreactive) Hep B Core IgM Ab (Nonreactive) Hep C IgG Ab (Nonreactive) 04/15/18 04/15/18 04/15/18 Range/Units 16:40 17:21 17:44 WBC (4.0-11.0) th/mm3 RBC (4.00-5.30) mil/mm3 Hgb (11.6-15.3) gm/dL Hct (35.0-46.0) % MCV (80.0-100.0) fL MCH (27.0-34.0) pg MCHC (32.0-36.0) % RDW (11.6-17.2) % Plt Count (150-450) th/mm3 MPV (7.0-11.0) fL Neut % (Auto) (16.0-70.0) % Lymph % (Auto) (9.0-44.0) % [place] % (Auto) (0.0-8.0) % Eos % (Auto) (0.0-4.0) % Baso % (Auto) (0.0-2.0) % Neut # (Auto) (1.8-7.7) th/mm3 Lymph # (Auto) (1.0-4.8) th/mm3 [place] # (Auto) (0.0-0.9) th/mm3 Eos # (Auto) (0.0-0.4) th/mm3 Baso # (Auto) (0.0-0.2) th/mm3 WBC Differential Differential Comment Sodium (136-145) meq/L Potassium (3.5-5.1) meq/L Chloride (98-107) meq/L Carbon Dioxide (21.0-32.0) meq/L Anion Gap (5-15) meq/L BUN (7-18) mg/dL Creatinine (0.50-1.00) mg/dL Estimated GFR (>89) mL/min POC Glucose Greater than 600 H* Greater than 600 H* (68-110) mg/dl Random Glucose 834 H* D (74-106) mg/dL Calcium (8.5-10.1) mg/dL Magnesium (1.5-2.5) mg/dL Total Bilirubin (0.2-1.0) mg/dL AST (15-37) U/L ALT (10-53) U/L Alkaline Phosphatase (45-117) U/L Total Creatine Kinase (26-192) U/L Troponin I (0.02-0.05) ng/mL B-Natriuretic Peptide (0-100) pg/mL Total Protein (6.4-8.2) g/dL Albumin (3.4-5.0) g/dL Hepatitis A IgM Ab (Nonreactive) Hep Bs Antigen (Nonreactive) Hep B Core IgM Ab (Nonreactive) Hep C IgG Ab (Nonreactive) 04/15/18 04/15/18 04/15/18 Range/Units 18:21 20:29 20:44 WBC (4.0-11.0) th/mm3 RBC (4.00-5.30) mil/mm3 Hgb (11.6-15.3) gm/dL Hct (35.0-46.0) % MCV (80.0-100.0) fL MCH (27.0-34.0) pg MCHC (32.0-36.0) % RDW (11.6-17.2) % Plt Count (150-450) th/mm3 MPV (7.0-11.0) fL Neut % (Auto) (16.0-70.0) % Lymph % (Auto) (9.0-44.0) % [place] % (Auto) (0.0-8.0) % Eos % (Auto) (0.0-4.0) % Baso % (Auto) (0.0-2.0) % Neut # (Auto) (1.8-7.7) th/mm3 Lymph # (Auto) (1.0-4.8) th/mm3 [place] # (Auto) (0.0-0.9) th/mm3 Eos # (Auto) (0.0-0.4) th/mm3 Baso # (Auto) (0.0-0.2) th/mm3 WBC Differential Differential Comment Sodium (136-145) meq/L Potassium (3.5-5.1) meq/L Chloride (98-107) meq/L Carbon Dioxide (21.0-32.0) meq/L Anion Gap (5-15) meq/L BUN (7-18) mg/dL Creatinine (0.50-1.00) mg/dL Estimated GFR (>89) mL/min POC Glucose Greater than 600 H* Greater than 600 H* (68-110) mg/dl Random Glucose 655 H* D (74-106) mg/dL Calcium (8.5-10.1) mg/dL Magnesium (1.5-2.5) mg/dL Total Bilirubin (0.2-1.0) mg/dL AST (15-37) U/L ALT (10-53) U/L Alkaline Phosphatase (45-117) U/L Total Creatine Kinase (26-192) U/L Troponin I (0.02-0.05) ng/mL B-Natriuretic Peptide (0-100) pg/mL Total Protein (6.4-8.2) g/dL Albumin (3.4-5.0) g/dL Hepatitis A IgM Ab (Nonreactive) Hep Bs Antigen (Nonreactive) Hep B Core IgM Ab (Nonreactive) Hep C IgG Ab (Nonreactive) 04/16/18 04/16/18 04/16/18 Range/Units 00:02 03:27 07:29 WBC (4.0-11.0) th/mm3 RBC (4.00-5.30) mil/mm3 Hgb (11.6-15.3) gm/dL Hct (35.0-46.0) % MCV (80.0-100.0) fL MCH (27.0-34.0) pg MCHC (32.0-36.0) % RDW (11.6-17.2) % Plt Count (150-450) th/mm3 MPV (7.0-11.0) fL Neut % (Auto) (16.0-70.0) % Lymph % (Auto) (9.0-44.0) % [place] % (Auto) (0.0-8.0) % Eos % (Auto) (0.0-4.0) % Baso % (Auto) (0.0-2.0) % Neut # (Auto) (1.8-7.7) th/mm3 Lymph # (Auto) (1.0-4.8) th/mm3 [place] # (Auto) (0.0-0.9) th/mm3 Eos # (Auto) (0.0-0.4) th/mm3 Baso # (Auto) (0.0-0.2) th/mm3 WBC Differential Differential Comment Sodium (136-145) meq/L Potassium (3.5-5.1) meq/L Chloride (98-107) meq/L Carbon Dioxide (21.0-32.0) meq/L Anion Gap (5-15) meq/L BUN (7-18) mg/dL Creatinine (0.50-1.00) mg/dL Estimated GFR (>89) mL/min POC Glucose 536 H* 314 H 107 (68-110) mg/dl Random Glucose (74-106) mg/dL Calcium (8.5-10.1) mg/dL Magnesium (1.5-2.5) mg/dL Total Bilirubin (0.2-1.0) mg/dL AST (15-37) U/L ALT (10-53) U/L Alkaline Phosphatase (45-117) U/L Total Creatine Kinase (26-192) U/L Troponin I (0.02-0.05) ng/mL B-Natriuretic Peptide (0-100) pg/mL Total Protein (6.4-8.2) g/dL Albumin (3.4-5.0) g/dL Hepatitis A IgM Ab (Nonreactive) Hep Bs Antigen (Nonreactive) Hep B Core IgM Ab (Nonreactive) Hep C IgG Ab (Nonreactive) 04/16/18 Range/Units 11:51 WBC (4.0-11.0) th/mm3 RBC (4.00-5.30) mil/mm3 Hgb (11.6-15.3) gm/dL Hct (35.0-46.0) % MCV (80.0-100.0) fL MCH (27.0-34.0) pg MCHC (32.0-36.0) % RDW (11.6-17.2) % Plt Count (150-450) th/mm3 MPV (7.0-11.0) fL Neut % (Auto) (16.0-70.0) % Lymph % (Auto) (9.0-44.0) % [place] % (Auto) (0.0-8.0) % Eos % (Auto) (0.0-4.0) % Baso % (Auto) (0.0-2.0) % Neut # (Auto) (1.8-7.7) th/mm3 Lymph # (Auto) (1.0-4.8) th/mm3 [place] # (Auto) (0.0-0.9) th/mm3 Eos # (Auto) (0.0-0.4) th/mm3 Baso # (Auto) (0.0-0.2) th/mm3 WBC Differential Differential Comment Sodium (136-145) meq/L Potassium (3.5-5.1) meq/L Chloride (98-107) meq/L Carbon Dioxide (21.0-32.0) meq/L Anion Gap (5-15) meq/L BUN (7-18) mg/dL Creatinine (0.50-1.00) mg/dL Estimated GFR (>89) mL/min POC Glucose 162 H (68-110) mg/dl Random Glucose (74-106) mg/dL Calcium (8.5-10.1) mg/dL Magnesium (1.5-2.5) mg/dL Total Bilirubin (0.2-1.0) mg/dL AST (15-37) U/L ALT (10-53) U/L Alkaline Phosphatase (45-117) U/L Total Creatine Kinase (26-192) U/L Troponin I (0.02-0.05) ng/mL B-Natriuretic Peptide (0-100) pg/mL Total Protein (6.4-8.2) g/dL Albumin (3.4-5.0) g/dL Hepatitis A IgM Ab (Nonreactive) Hep Bs Antigen (Nonreactive) Hep B Core IgM Ab (Nonreactive) Hep C IgG Ab (Nonreactive) Imaging Data Radiologist's impression: Chest X-Ray 04/13/18 22:03 CONCLUSION: No acute findings. Chest CTA 04/14/18 00:18 CONCLUSION: 1. No evidence of pulmonary emboli. 2. Mild patchy opacity in both lung bases. This could represent an early pneumonia. Discharge Plan Discharge Disposition Patient Disposition: ED Admit(ED Internal Use Only) Discharge Condition Condition: Stable Discharge Order Discharge Orders: Discharge Order (Routine); Ordered 04/16/18 Ordered By: Padmini Trujillo ED Use Only Admit Order (Routine); Ordered 04/14/18 Ordered By: Marlin Cordova Discharge Details Anticipated Discharge Date: 04/16/18 Discharge Comment: Discharge pending home oxygen walk test Diagnosis: Hyponatremia, HTN (hypertension), ESRD (end stage renal disease) on dialysis, Cough, Shortness of breath Physicians Team ED Provider: Valeri Heredia ED Midlevel Provider: Marlin Cordova Primary Care Provider: UNKNOWN, Attending Provider: Louis Pulido Other Providers: Bello Solorzano V Status ED Status: Left Department Discharge Information Discharge Date/Time: 04/14/18 04:50
[2018-04-13 22:40] LABS: Baso # (Auto) 0.1 th/mm3 (0.0-0.2); Baso % (Auto) 0.6 % (0.0-2.0); Eos # (Auto) 0.1 th/mm3 (0.0-0.4); Eos % (Auto) 1.3 % (0.0-4.0); Hematocrit 42.1 % (35.0-46.0); Hemoglobin 14.1 gm/dL (11.6-15.3); Lymph # (Auto) 1.4 th/mm3 (1.0-4.8); Lymph % (Auto) 14.4 % (9.0-44.0); Mean Corpuscular HGB Conc 33.6 % (32.0-36.0); Mean Corpuscular Hemoglobin 33.1 pg (27.0-34.0); Mean Corpuscular Volume 98.6 fL (80.0-100.0); Mean Platelet Volume 7.5 fL (7.0-11.0); Mono # (Auto) 0.5 th/mm3 (0.0-0.9); Mono % (Auto) 5.4 % (0.0-8.0); Neut # (Auto) 7.5 th/mm3 (1.8-7.7); Neut % (Auto) 78.3 % (16.0-70.0); Platelet Count 180 th/mm3 (150-450); Red Blood Count 4.27 mil/mm3 (4.00-5.30); White Blood Count 9.6 th/mm3 (4.0-11.0)
[2018-04-13 23:24] LABS: Alanine Aminotransferase 16 U/L (10-53); Albumin 3.6 g/dL (3.4-5.0); Anion Gap 12 meq/L (5-15); Aspartate Aminotransferase 13 U/L (15-37); Blood Urea Nitrogen 56 mg/dL (7-18); Calcium 9.1 mg/dL (8.5-10.1); Chloride 90 meq/L (98-107); Glomerular Filtration Rate 4 mL/min (>89); Glucose,Random 431 mg/dL (74-106); Potassium 4.2 meq/L (3.5-5.1); Sodium 126 meq/L (136-145)
[2018-04-13 23:29] LABS: Alkaline Phosphatase 163 U/L (45-117); Total Protein 8.3 g/dL (6.4-8.2)
[2018-04-13 23:30] LABS: Creatine Kinase 55 U/L (26-192)
[2018-04-14] MEDS ORDERED: Acetaminophen 325 MG Tablet PO PRN ×2 (01:16→09:20)
[2018-04-14] MEDS: Heparin - SQ 10,000 UNITS/ML Vial SQ SCH ×4 (02:24→17:59)
--- NOTE | 2018-04-14 02:24 | CT ---
EXAM DATE: 04/14/2018 1:55 AM EST AGE/SEX: 37 years / Female INDICATIONS: Chest pain, shortness of breath. CLINICAL DATA: This is the patient's initial encounter. Patient reports that signs and symptoms have been present for 1 day and indicates a pain score of 6/10. MEDICAL/SURGICAL HISTORY: Deep venous thrombosis. Peripheral artery disease. Hypertension. Renal failure. Dialysis. Diabetes. None. RADIATION DOSE: 10.40 CTDI (mGy) COMPARISON: [facility] – [place], CHEST 1V SINGLE AP, 04/13/2018. . TECHNIQUE: Volumetric scanning was performed using a multi-row detector CT scanner during bolus infu melvi of 73 ml Omnipaque 350 (iohexol) nonionic water-soluble contrast as a single exam dose. The estrada a was post processed with a variety of visualization algorithms including full volume maximum intensi ty projection and sliding thin slab reformation. Using automated exposure control and adjustment of t he mA and/or kV according to patient size, radiation dose was kept as low as reasonably achievable to obtain optimal diagnostic quality images. DICOM format image data is available electronically for r eview and comparison. FINDINGS: Pulmonary Arteries: No filling defects are seen in the pulmonary arteries out to the subsegmental ve ssels. The left and right pulmonary arteries are normal in diameter. Lung: Mild patchy opacity is present in both lung bases right greater than left. Effusion: None. Mediastinum: No evidence of mediastinal or hilar adenopathy. Other: The axilla is unremarkable. CONCLUSION: 1. No evidence of pulmonary emboli. 2. Mild patchy opacity in both lung bases. This could represent an early pneumonia. Electronically signed by: Dany Li MD Board Certified Radiologist 04/14/2018 2:23 AM EST
--- NOTE | 2018-04-14 03:21 | P.HPIM ---
History of Present Illness Primary Care Physician: none- but sees PA at dialysis clinic CC: cough, congestion for one month HPI: History from patient, ER physician communication, and review of medical records. Patient reported that she came to the hospital because she has been having cough for the past 1 month with associated fevers. Also reports of nausea. However denies any vomiting or diarrhea. Reports her shortness of breath. Denies any palpitations/dizziness/syncopal episodes/falls. Denies any urinary burning or pain on urination or frequent urination. Patient states that she does not have a primary care doctor and she sees a PA at the dialysis center at times. When she discussed this with the PA, she was advised to come to hospital. She reports that she always felt congested in the past 1 month. However denies missing her dialysis sessions. She goes for dialysis on Tuesdays and Saturdays. Her last one was on . Suspect that patient's blood pressure has not been controlled at home as well. She only takes clonidine 0.2 mg daily dose with Norvasc 10 mg daily. She does not measure her blood pressures at home.Her blood pressure was in the 200s over 100s while in ER. She required clonidine 0.2 mg p.o. x2 doses. She was also noted to be tachycardic and tachypneic on minimal exertion to the bathroom in ER. Past medical history: Hypertension Diabetes End-stage renal disease on hemodialysis History of DVT of the right upper extremity about 3 years ago secondary to permacath placement Denies any prior history of heart history/lung problems/liver problems/thyroid problem/cancers/strokes/seizures. Past surgical history: Left AV fistula placement Permacath placements x3 x2 Right lower extremity venous grafting for her AV fistula Family history: Reports her mom has iron deficiency anemia. Also multiple members of the family have diabetes, asthma. Social history: Denies smoking/alcohol abuse/drug abuse. Medications: Patient is able to recall the names and doses of all her medications. Insulin Novolin R 10 units twice daily Insulin Novolin N 30 units twice daily Calcium acetate 667 mg q. before meals Clonidine 0.2 mg p.o. daily Amlodipine 10 mg p.o. daily Zoloft 100 mg p.o. daily And Abilify 2 mg p.o. daily Review of Systems Review of Systems: all other systems reviewed are negative FOR[facility]LY [facility] Medical History Medical History Anemia (Acute) DVT (deep venous thrombosis) (Acute) Diabetes (Acute) Hemodialysis access site with arteriovenous graft (Acute) Hypertension (Acute) PVD (peripheral vascular disease) (Acute) Renal failure (Acute) Secondary hyperparathyroidism (Acute) Social History Social History Substance History: No History of Abuse Second Hand Smoke Exposure: No Smoking Status: Never smoker How Often Do You Have a Drink Containing Alcohol: Never Recent Travel in [facility] within the Last 8 Weeks: No Recent Out of Country Travel within the Last 8 Weeks: No Immunization History Tetanus Immunization: Unsure Medications and Allergies Allergies Allergy/AdvReac Type Severity Reaction Status Date / Time penicillin G Allergy Severe HIVES,RASH Verified 10/27/17 00:54 Home Medications Medication Instructions Recorded Confirmed Type calcium acetate 667 mg PO TID 10/27/17 04/14/18 History clonidine HCl 0.2 mg PO DAILY 10/27/17 04/14/18 History sertraline [Zoloft] 100 mg PO DAILY 12/16/17 04/14/18 History Active Medications: Active Medications Acetaminophen (Tylenol) 650 mg PO Q4H PRN PRN Reason: Temp > 100.4 Heparin Sodium (Porcine) (Heparin Inj) 5,000 units SQ Q8H [facility] Last Admin: 04/14/18 02:24 Dose: 5,000 units Ondansetron HCl (Zofran Inj) 4 mg IV.PUSH Q6H PRN PRN Reason: NAUSEA OR VOMITING Sodium Chloride (Ns Flush) 2 ml IV.FLUSH PRN PRN PRN Reason: FLUSH AFTER USING IV ACCESS Sodium Chloride (Ns Flush) 2 ml IV.FLUSH BID [facility] Physical Exam Vital signs: Last Vital Signs Temp 98.3 F 04/13/18 21:46 Pulse 94 H 04/14/18 02:09 Resp 20 04/14/18 02:09 BP 191/87 H 04/14/18 02:09 Pulse Ox 96 04/13/18 23:32 Intake & Output 04/11/18 04/12/18 04/13/18 04/14/18 06:59 06:59 06:59 06:59 Weight 99 kg GENERAL: This is a well-nourished, well-developed patient, in no apparent distress.Morbidly obese. Generalized anasarca CARDIOVASCULAR: Regular rate and rhythm without murmurs, gallops, or rubs. RESPIRATORY: Bilateral equal air entry. Decreased air entry secondary to body habitus.No wheezes, rales, or rhonchi. GASTROINTESTINAL: Abdomen soft, non-tender, nondistended. Normal active bowel sounds MUSCULOSKELETAL: Extremities without clubbing, cyanosis, or edema.Left AV fistula site. NEURO: Alert & Oriented x4 to person, place, time, situation. Moves all ext x4 Results Labs CBC & Chem 7: 04/13/18 22:05 04/13/18 22:05 Imaging Impressions Chest X-Ray 04/13/18 22:03 CONCLUSION: No acute findings. Chest CTA 04/14/18 00:18 CONCLUSION: 1. No evidence of pulmonary emboli. 2. Mild patchy opacity in both lung bases. This could represent an early pneumonia. Caprini VTE Risk Assessment Caprini VTE Risk Assessment: Moderate/High Risk (score >= 2) Caprini Risk Assessment Model: Point Value = 1 Point Value = 2 Point Value = 3 Point Value = 5 Age 41-60 Minor surgery BMI > 25 kg/m2 Swollen legs Varicose veins or History of unexplained or recurrent spontaneous Oral contraceptives or hormone replacement Sepsis (< 1 month) Serious lung disease, including pneumonia (< 1 month) Abnormal pulmonary function Acute myocardial infarction Congestive heart failure (< 1 month) History of inflammatory bowel disease Medical patient at bed rest Age 61-74 Arthroscopic surgery Major open surgery (> 45 min) Laparoscopic surgery (> 45 min) Malignancy Confined to bed (> 72 hours) Immobilizing plaster cast Central venous access Age >= 75 History of VTE Family history of VTE Factor V Leiden Prothrombin [id number] Lupus anticoagulant Anticardiolipin antibodies Elevated serum homocysteine Heparin-induced thrombocytopenia Other congenital or acquired thrombophilia Stroke (< 1 month) Elective arthroplasty Hip, pelvis, or leg fracture Acute spinal cord injury (< 1 month) Prophylaxis Regimen: Total Risk Factor Score Risk Level Prophylaxis Regimen 0-1 Low Early ambulation 2 Moderate Order ONE of the following: *Sequential Compression Device (SCD) *Heparin 5000 units SQ BID 3-4 Higher Order ONE of the following medications: *Heparin 5000 units SQ TID *Enoxaparin/Lovenox 40 mg SQ daily (WT < 150 kg, CrCl > 30 mL/min) *Enoxaparin/Lovenox 30 mg SQ daily (WT < 150 kg, CrCl > 10-29 mL/min) *Enoxaparin/Lovenox 30 mg SQ BID (WT < 150 kg, CrCl > 30 mL/min) AND/OR *Sequential Compression Device (SCD) 5 or more Highest Order ONE of the following medications: *Heparin 5000 units SQ TID (Preferred with Epidurals) *Enoxaparin/Lovenox 40 mg SQ daily (WT < 150 kg, CrCl > 30 mL/min) *Enoxaparin/Lovenox 30 mg SQ daily (WT < 150 kg, CrCl > 10-29 mL/min) *Enoxaparin/Lovenox 30 mg SQ BID (WT < 150 kg, CrCl > 30 mL/min) AND *Sequential Compression Device (SCD) Assessment and Plan Plan Impression: Bilateral pneumonia Tachycardia and tachypnea on exertion while in the ER Suspect underlying sleep apnea Accelerated hypertension in ER Hypertension Diabetes End-stage renal disease on hemodialysis History of DVT of the right upper extremity about 3 years ago secondary to permacath placement Plan: Initially, patient was thought to have bronchitis however she easily gets tachypneic and tachycardic with minimal exertion. I have therefore requested for CT pulmonary angiogram with arrangements for her to get dialyzed within [address] is negative for pulmonary embolism but did show bilateral pneumonia. Start patient on Rocephin 1 g IV every 12 hours. Azithromycin 500 mg p.o. daily. We will consult nephrology for dialysis in a.m. Resume home meds.Would increase clonidine to 0.2 mg p.o. twice daily. Monitor fingersticks and cover with sliding scale coverage. DVT prophylaxis with heparin.
[2018-04-14] MEDS: Azithromycin 250 MG Tablet PO SCH ×2 (04:15→08:44)
[2018-04-14] MEDS ORDERED: Dextrose 50% in Water 50 ML Vial IV.PUSH PRN (08:24)
[2018-04-14] MEDS: Sertraline 100 MG Tablet PO SCH (08:52)
[2018-04-14] MEDS: Calcium Acetate 667 MG Capsule PO SCH ×3 (08:52→17:59)
[2018-04-14] MEDS: amLODIPine 10 MG Tablet PO SCH (08:52)
[2018-04-14] MEDS ORDERED: Sod Chloride 0.9% Inj 1,000 ML IV.CONT PRN (09:20)
[2018-04-14] MEDS ORDERED: Albumin Human 25% Inj 100 ML IV.SIG PRN (09:20)
[2018-04-14] MEDS ORDERED: Gelatin 12 MM/7 MM Topical Foam TOPICAL PRN (09:20)
[2018-04-14] MEDS ORDERED: Heparin 10,000 UNITS/10 ML Vial (for IV use) OTHER PRN ×2 (09:20)
[2018-04-14] MEDS ORDERED: Sod Chloride 0.9% Inj 1,000 ML OTHER PRN ×2 (09:20)
[2018-04-14 12:00] LABS: Hepatitits B Surface Antigen Nonreactive (Nonreactive)
[2018-04-14 12:02] LABS: Hepatitis A IgM Antibody Nonreactive (Nonreactive)
[2018-04-14] MEDS: Insulin NovoLOG Aspart Correctional Sugar Inj SQ SCH ×4 (12:45→21:18)
--- NOTE | 2018-04-14 14:19 | ECG ---
Date Performed: 04/13/2018 Time Performed: 23:02:55 PTAGE: 37 years EKG: Sinus rhythm POSSIBLE LEFT ATRIAL ENLARGEMENT NONSPECIFIC T-WAVE ABNORMALITY BORDERLINE ECG Atrial abnormality is slightly more prominent since PREVIOUS TRACING and t waves slightly flattened. PREVIOUS TRACIN12/17/2017 10.26 DOCTOR: Blake Arenas Interpretating Date/Time 04/14/2018 14:18:05
--- NOTE | 2018-04-14 15:20 | MB ---
cc: Bello Solorzano MD DATE: 04/14/2018 REASON FOR CONSULTATION: End-stage renal disease management. HISTORY OF PRESENT ILLNESS: This is a 37-year-old female with history of end-stage renal disease. She is on hemodialysis, Tuesdays, , and Saturdays and follows up as an outpatient with Dr. Barraza. The patient came to the ER with complaints of cough with congestion, and shortness of breath for approximately 1 month[address] She had a CT angiogram done here, which showed findings of bilateral pneumonia. No signs of any other pulmonary embolism otherwise. The patient was admitted here. She initially had a systolic blood pressure in the 200s. She was restarted on her blood pressure medications. She initially has presented with hyperglycemia. She has history of diabetes and her glucose was in the 600s at this point. Given end-stage renal disease management, nephrology was consulted for further evaluation of dialysis. The patient is seen on dialysis at this time and is tolerating dialysis well via a left upper arm fistula. REVIEW OF SYSTEMS: The patient denies any fevers, chills, however, has had some shortness of breath, no nausea, no vomiting, no diarrhea, no constipation. No dysuria. No chest pains. Otherwise, review of systems negative. PAST MEDICAL HISTORY: Includes hypertension, diabetes, ESRD, on dialysis Monday, , Saturdays followed up as an outpatient with Dr. Barraza. Also history of right upper extremity DVT secondary to catheter placement. PAST SURGICAL HISTORY: Includes left upper arm AV fistula with surgical revision using saphenous vein. Also, history of multiple tunneled dialysis catheters, C-sections x2. FAMILY HISTORY: Mother with iron deficiency anemia. Multiple members of the family with diabetes and asthma. SOCIAL HISTORY: No alcohol, tobacco or drug use. MEDICATIONS AT HOME: Included: 1. Insulin. 2. PhosLo. 3. Clonidine. 4. Amlodipine. 5. Zoloft. 6. Abilify. REVIEW OF SYSTEMS: At time of evaluation otherwise negative other than as previously reviewed. ALLERGIES: INCLUDE PENICILLIN. PHYSICAL EXAMINATION: VITAL SIGNS: At time of evaluation, temperature 98.2, pulse 75, respiratory rate 18, blood pressure 137/71, 96% oxygen saturation. GENERAL: Awake, alert, oriented, in no apparent distress. NECK: Soft, supple. CARDIAC: Regular rate and rhythm. PULMONARY: Clear to auscultation. ABDOMEN: Soft, nontender, nondistended. EXTREMITIES: No edema. LABORATORY DATA: White count 9.6, hemoglobin 14.1, hematocrit 42.1, platelet count of 180. Sodium 126, potassium 4.2, chloride 90, bicarbonate 24, BUN 56, creatinine 10.7, glucose level initially 430, repeat level greater than 600, AST 13, ALT is 16, alkaline phosphatase 163. Troponin less than 0.02. Albumin 3.6. Hepatitis panel nonreactive. ASSESSMENT AND PLAN: 1. End-stage renal disease. The patient is on dialysis, Tuesdays, , and Saturdays and follows up as an outpatient with Dr. Barraza. We will continue dialysis here with ultrafiltration as tolerated. The patient is tolerating dialysis well via left upper arm AV fistula. 2. Pneumonia. The patient presented with shortness of breath, symptoms of cough. Imaging reveals signs of bilateral pneumonia. The patient has been started on azithromycin as well as Rocephin. Continue to monitor at this point. Otherwise, afebrile. 3. Hypertension. Blood pressure initially 200s/100s. Blood pressure is improved at this point. Continue medications. 4. Diabetes. Continue with insulin management. The patient has elevated glucose level of 600s at this time, continue with insulin management and control as needed. MD ZURDO MadisonP/ct , 03:02 PM , 03:11 PM
[2018-04-15] MEDS: Heparin - SQ 10,000 UNITS/ML Vial SQ SCH ×4 (02:11→17:31)
[2018-04-15] MEDS: Insulin NovoLOG Aspart Correctional Sugar Inj SQ SCH ×5 (03:06→20:40)
[2018-04-15 04:56] LABS: Baso % (Auto) 0.4 % (0.0-2.0); Eos % (Auto) 0.2 % (0.0-4.0); Hemoglobin 13.3 gm/dL (11.6-15.3); Lymph # (Auto) 1.3 th/mm3 (1.0-4.8); Lymph % (Auto) 12.3 % (9.0-44.0); Mean Corpuscular HGB Conc 34.1 % (32.0-36.0); Mean Corpuscular Volume 96.6 fL (80.0-100.0); Mean Platelet Volume 7.8 fL (7.0-11.0); Mono # (Auto) 0.6 th/mm3 (0.0-0.9); Mono % (Auto) 5.1 % (0.0-8.0); Platelet Count 182 th/mm3 (150-450); Red Blood Count 4.04 mil/mm3 (4.00-5.30); Red Cell Distribution Width 13.9 % (11.6-17.2); White Blood Count 10.9 th/mm3 (4.0-11.0)
[2018-04-15 05:27] LABS: Calcium 9.3 mg/dL (8.5-10.1); Carbon Dioxide 29.2 meq/L (21.0-32.0); Potassium 3.8 meq/L (3.5-5.1)
--- NOTE | 2018-04-15 07:55 | P.PNIM ---
Subjective Interval history: Follow up on patient with bilateral pneumonia. Patient seen and examined. Patient reports continued congestion with cough with greenish sputum production. Patient says she was short of breath moving around the room this morning. She denies any fever or chills. She reports pleuritic chest pain. Her blood sugar dropped to 51 earlier this morning but improved to 156 after juice/crackers. Physical Exam Vital signs: Last Vital Signs Temp 98.0 F 04/15/18 07:05 Pulse 80 04/15/18 07:05 Resp 18 04/15/18 07:05 BP 140/63 04/15/18 07:05 Pulse Ox 93 L 04/15/18 07:05 Intake & Output 04/13/18 04/14/18 04/15/18 04/16/18 06:59 06:59 06:59 06:59 Intake Total 100 / 100 880 / 880 Output Total 4000 / 4000 Balance 100 / 100 -3120 / -3120 Weight 99 kg Narrative: GENERAL: WDWN female, INAD. Awake and alert. Sitting on side of bed. SKIN: Warm and dry. No generalized rash. HEENT: Atraumatic. Normocephalic. Pupils equal and round. No scleral icterus. No injection or drainage. No nasal bleeding or discharge. Mucous membranes pink and moist. NECK: Trachea midline. CARDIOVASCULAR: Regular rate and rhythm. No murmur appreciated. RESPIRATORY: No accessory muscle use. Coarse breath sounds noted thru out lung carson. GASTROINTESTINAL: Abdomen soft, non-tender, nondistended. Bowel sounds normal. MUSCULOSKELETAL: Extremities without clubbing, cyanosis, or edema. No obvious deformities. NEUROLOGICAL: Awake and alert. No obvious cranial nerve deficits. Able to move all extremities spontaneously. Normal speech. PSYCHIATRIC: Appropriate mood and affect; insight and judgment normal. Results Labs CBC & Chem 7: 04/15/18 04:19 04/15/18 04:19 Labs: Microbiology 04/14/18 04:45 Nasal Wash Influenza Types A,B Antigen - Final Negative for FLU A and B antigen Infection due to influenza A or B cannot be ruled out since the antigen present in the sample may be below the detection limit of the test. Assessment and Plan Plan 37yo female with brittle DM and ESRD on HD admitted with bilateral lobe PNA: Bilateral pneumonia CTA + mild patchy opacity in both lung bases consistent with early pneumonia -Continue on IV Rocephin and azithromycin -Continue on scheduled duo nebs -Mucinex twice daily -Symbicort BID -Supplemental oxygen as needed -Continue to monitor respiratory status Hypertensive urgency, improved BP 200s/100s initially -Continue on Norvasc 10mg daily and Clonidine 0.2mg BID -Hydralazine as needed with hold parameters -Continue to monitor BP and adjust treatment accordingly Diabetes, poorly controlled, labile blood sugars Blood sugar greater than 600 BS 51 this am, better now -Continue on scheduled Novolin N NPH 30u daily, decrease evening dose to 10u. Add Aspart 3u TIDAC -accucheks and ISS, change from high to med Stage renal disease on hemodialysis -Nephrology following, appreciate assistance. Resume HD per nephro instructions. -continue on Phoslo History of DVT right upper extremity 3 years ago status post permacath placement -not active, monitor DVT prophylaxis -heparin Progress Note: Quality VTE Deep Vein Thrombosis/Pulmonary Embolism Present on Admission: No
[2018-04-15] MEDS: amLODIPine 10 MG Tablet PO SCH (08:22)
[2018-04-15] MEDS: Calcium Acetate 667 MG Capsule PO SCH ×3 (08:22→17:31)
[2018-04-15] MEDS: Azithromycin 250 MG Tablet PO SCH (08:23)
[2018-04-15] MEDS: Sertraline 100 MG Tablet PO SCH (08:23)
[2018-04-15] MEDS ORDERED: hydrALAZINE 10 MG Tablet PO PRN (12:12)
[2018-04-15] MEDS: guaiFENesin 600 MG ER Tablet PO SCH ×2 (13:00→20:36)
[2018-04-15] MEDS: Budesonide-Formoterol 160/4.5 MCG 6 GM Inhaler INH SCH ×2 (13:00→20:37)
--- NOTE | 2018-04-15 17:55 | P.PNNP ---
Subjective Interval history: some ongoing shortness of breath, glucose in 600s today Tolerated HD yesterday Physical Exam Vital signs: Vital Signs 04/14/18 20:00 04/15/18 00:00 04/15/18 01:23 Temperature 99.1 F 98.8 F Pulse Rate 78 77 82 Respiratory Rate 20 20 Blood Pressure 123/58 L 124/65 Pulse Oximetry 94 L 96 04/15/18 03:35 04/15/18 06:01 04/15/18 07:05 Temperature 98 F 98.0 F Pulse Rate 70 69 80 Respiratory Rate 20 18 Blood Pressure 139/71 140/63 Pulse Oximetry 96 93 L 04/15/18 08:00 04/15/18 11:32 04/15/18 12:58 Temperature 97.9 F Pulse Rate 77 82 80 Respiratory Rate 16 18 Blood Pressure 141/71 H Pulse Oximetry 94 L 04/15/18 16:00 Temperature 98.8 F Pulse Rate 81 Respiratory Rate 18 Blood Pressure 156/72 H Pulse Oximetry 97 Intake & Output 04/14/18 04/15/18 04/15/18 18:59 06:59 18:59 Intake Total 100 / 100 780 / 780 100 / 100 Output Total 4000 / 4000 Balance -3900 / -3900 780 / 780 100 / 100 Intake: IV 100 / 100 100 / 100 100 / 100 Rocephin Inj 1,000 MG In NS Inj 100 / 100 100 / 100 100 / 100 100 ML @ 200 mls/hr IV.SIG Q12H [facility] Rx#:[id number] Oral 680 / 680 Output: Hemodialysis Amount 4000 / 4000 Other: # Voids 0 0 Date of Last Bowel Movement 04/13/18 04/14/18 - Constitutional no acute distress - Routine HEENT Exam Head: Present: normocephalic Eye: Present: EOMI ENT: Present: mucous membranes moist - Routine Neck Exam Present: supple - Routine Respiratory Exam Present: decreased breath sounds - Routine Cardiovascular Exam Present: RRR - Routine Abdominal Exam Present: soft - Routine Skin Exam Present: intact - Routine Neurological Exam Present: alert, oriented X3 - Routine Psychiatric Exam Present: normal affect Assessment and Plan - Assessment (1) ESRD (end stage renal disease) on dialysis Code(s): N18.6 - End stage renal disease; Z99.2 - Dependence on renal dialysis Status: Chronic Plan: The patient is on dialysis, Tuesdays, , and Saturdays and follows up as an outpatient with Dr. Barraza. HD done yesterday with 4L UF Plan for next HD Monday. The patient is tolerating dialysis well via left upper arm AV fistula. (2) Diabetes Code(s): E11.9 - Type 2 diabetes mellitus without complications Status: Acute Plan: Glucose in 600s - continue insulin management (3) Pneumonia Code(s): J18.9 - Pneumonia, unspecified organism Status: Acute Plan: on Azithromycin as well as Rocephin. Continue to monitor at this point. Otherwise, afebrile. (4) HTN (hypertension) Code(s): I10 - Essential (primary) hypertension Status: Chronic Qualifiers: Plan: Blood pressure initially 200s/100s. Blood pressure is improved at this point. Continue medications.
[2018-04-16] MEDS: Heparin - SQ 10,000 UNITS/ML Vial SQ SCH ×2 (00:40→09:28)
[2018-04-16] MEDS: Insulin NovoLOG Aspart Correctional Sugar Inj SQ SCH ×3 (03:35→13:09)
[2018-04-16] MEDS: amLODIPine 10 MG Tablet PO SCH (09:29)
[2018-04-16] MEDS: Sertraline 100 MG Tablet PO SCH (09:29)
[2018-04-16] MEDS: Calcium Acetate 667 MG Capsule PO SCH ×2 (09:29→13:08)
[2018-04-16] MEDS: Azithromycin 250 MG Tablet PO SCH (09:29)
[2018-04-16] MEDS: guaiFENesin 600 MG ER Tablet PO SCH (09:29)
[2018-04-16] MEDS: Budesonide-Formoterol 160/4.5 MCG 6 GM Inhaler INH SCH (09:30)
[2018-04-16 11:02] VITALS: O2SAT 94
[2018-04-16 12:29] VITALS: BP 127/72; TEMP 97.9
--- NOTE | 2018-04-16 12:49 | P.DS ---
DS: Providers Date of admission: 04/14/18 03:36 Primary care physician: UNKNOWN Consults: 04/14/18 01:16 Consult to Nephrology Routine Consulting Provider: Bello Solorzano V Does the patient have a Cnc Lathe Machine Operator who follows them?: Yes Preferred Nephrology Licensed Professional Counselor:: Zane Barraza Reason for Consultation: esrd on hd Notified:: Service Spoke with:: Yovani Date Notified:: 04/14/18 Time Notified:: 02:11 Ordering Provider: CATRACHO Attending physician on discharge: Louis Pulido Anticipated date of discharge: 04/16/18 Brief History from admission: History from patient, ER physician communication, and review of medical records. Patient reported that she came to the hospital because she has been having cough for the past 1 month with associated fevers. Also reports of nausea. However denies any vomiting or diarrhea. Reports her shortness of breath. Denies any palpitations/dizziness/syncopal episodes/falls. Denies any urinary burning or pain on urination or frequent urination. Patient states that she does not have a primary care doctor and she sees a PA at the dialysis center at times. When she discussed this with the PA, she was advised to come to hospital. She reports that she always felt congested in the past 1 month. However denies missing her dialysis sessions. She goes for dialysis on Tuesdays and Saturdays. Her last one was on . Suspect that patient's blood pressure has not been controlled at home as well. She only takes clonidine 0.2 mg daily dose with Norvasc 10 mg daily. She does not measure her blood pressures at home.Her blood pressure was in the 200s over 100s while in ER. She required clonidine 0.2 mg p.o. x2 doses. She was also noted to be tachycardic and tachypneic on minimal exertion to the bathroom in ER. Patient update on day of discharge: Patient seen and examined. Patient states that she did not have any shortness of breath with ambulation around the room and out to the bathroom today. She says her breathing is improved. She continues to have cough but it is less. She denies any sputum production. She denies any chest pain. She denies any nausea, vomiting or abdominal pain. DS: Diagnosis Discharge Diagnosis (1) ESRD (end stage renal disease) on dialysis: Status: Chronic (2) Diabetes: Status: Acute (3) Pneumonia: Status: Acute (4) HTN (hypertension): Status: Chronic DS: Summary Patient admitted with bilateral pneumonia and started on IV Rocephin and oral azithromycin. Patient also started on Symbicort inhaler and scheduled duo nebs as well as Mucinex. Patient with hypertensive urgency BP 200s over 100s initially. Patient was seen in consultation by nephrology who managed patient' s ongoing hemodialysis schedule. Patient noted to be very brittle diabetic with labile blood sugars ranging from 51 to more than 800. Patient improved clinically. Her blood pressure improved to 127/72. Patient's blood sugars improved and was within acceptable range at time of discharge. Patient reached maximum benefit of her hospitalization. Patient underwent home oxygen walk test and after walking more than 200 feet desatted to only to 97%. Patient was instructed to resume her normal hemodialysis schedule Monday following discharge. Patient was also advised to follow-up with assistant oceanographer as an outpatient. Time Spent with Patient Total time spent providing and/or coordinating discharge services: Greater than 30 minutes Status at Discharge Functional status at discharge: independent ambulation Quality: VTE Deep Vein Thrombosis/Pulmonary Embolism Present on Admission: No Exam Narrative Exam Narrative: GENERAL: WDWN female, INAD. Awake and alert. Sitting up in bedside chair playing on her phone. Breathing well on room air. SKIN: Warm and dry. No generalized rash. HEENT: Atraumatic. Normocephalic. Pupils equal and round. No scleral icterus. No injection or drainage. No nasal bleeding or discharge. Mucous membranes pink and moist. NECK: Trachea midline. CARDIOVASCULAR: Regular rate and rhythm. No murmur appreciated. RESPIRATORY: No accessory muscle use. Coarse breath sounds noted thru out lung carson. GASTROINTESTINAL: Abdomen soft, non-tender, nondistended. Bowel sounds normal. MUSCULOSKELETAL: Extremities without clubbing, cyanosis, or edema. No obvious deformities. NEUROLOGICAL: Awake and alert. No obvious cranial nerve deficits. Able to move all extremities spontaneously. Normal speech. PSYCHIATRIC: Appropriate mood and affect; insight and judgment normal. Results Labs on day of discharge: Labs from last 24 hours 04/16/18 04/16/18 04/16/18 11:51 07:29 03:27 POC Glucose 162 H 107 314 H Random Glucose 04/16/18 04/15/1819 00:02 20:44 20:29 POC Glucose 536 H* Greater than 600 H* Random Glucose 655 H* D 04/15/18 04/15/18 04/15/18 18:21 17:44 17:21 POC Glucose Greater than 600 H* Greater than 600 H* Greater than 600 H* Random Glucose 04/15/18 04/15/18 16:40 15:55 POC Glucose Greater than 600 H* Random Glucose 834 H* D Impressions ITS Impressions Chest X-Ray 04/13/18 22:03 CONCLUSION: No acute findings. Chest CTA 04/14/18 00:18 CONCLUSION: 1. No evidence of pulmonary emboli. 2. Mild patchy opacity in both lung bases. This could represent an early pneumonia. Discharge Plan Discharge Disposition Patient Disposition: Discharge Home Discharge Condition Condition: Stable Discharge Order Discharge Orders: Discharge Order (Routine); Ordered 04/16/18 Ordered By: Padmini Trujillo Discharge Details Anticipated Discharge Date: 04/16/18 Discharge Comment: Discharge pending home oxygen walk test Physicians Team Primary Care Provider: UNKNOWN, Attending Provider: Louis Pulido Other Providers: Bello Solorzano V Rxs /Orders / Referrals /Forms Prescriptions: New azithromycin 250 mg Tablet 500 mg PO DAILY 7 Days Qty: 14 RF: 0 insulin aspart U-100 [Novolog U-100 Insulin aspart] 100 unit/mL Solution 3 unit subcut TIDAC 30 Days Qty: 10 RF: 0 budesonide-formoterol [Symbicort] 160-4.5 mcg/actuation Hfa Aerosol Inhaler 2 puff Inhalation BID 10 Days Qty: 10.2 RF: 0 guaifenesin [Mucinex] 600 mg Tablet Extended Release 12hr 600 mg PO BID 10 Days Qty: 20 RF: 0 albuterol sulfate [Ventolin HFA] 90 mcg/actuation HFA aerosol inhaler 2 inh INHALATION Q4-6H PRN (Reason: shortness of breath or wheezing) Qty: 18 RF: 0 Continue calcium acetate 667 mg Capsule 667 mg PO TID RF: 0 sertraline [Zoloft] 100 mg Tablet 100 mg PO DAILY RF: 0 clonidine HCl 0.2 mg Tablet 0.2 mg PO DAILY 30 Days Qty: 30 RF: 0 amlodipine 10 mg Tablet 10 mg PO DAILY 30 Days Qty: 30 RF: 0 insulin NPH isoph U-100 human [Novolin N NPH U-100 Insulin] 100 unit/mL Suspension 30 unit SUB-Q BID 30 Days Qty: 18 RF: 0 Referrals: Electrician [Outside] - See Instructions ( Please call the physician's office to book the appointment to be seen within one week.) Primary Care Provider [Outside] - See Instructions ( Please call the physician's office to book the appointment to be seen within one week.) UNKNOWN, [Primary Care Provider] - See Instructions Discharge Instructions Patient Printed Instructions: Albuterol (By breathing), Guaifenesin (By mouth) , Azithromycin (By mouth), Budesonide (By breathing), Insulin Aspart Protamine/ Insulin Aspart (By injection) Post Discharge Care Plan Care Plan Goals: Your Health Problems: Goals to Promote Your Health: * To prevent worsening of your condition * To maintain your health at the optimal level Directions to Meet Your Goals: * Take your medications as prescribed * Follow your dietary instruction * Follow activity as directed * Keep your appointments as scheduled * Take your immunizations and boosters as scheduled * If your symptoms worsen call your PCP * If no PCP go to Urgent Care or Emergency Room Smoking is dangerous to your health. Avoid second hand smoke. You may reach the 24-hour crisis hotline for domestic abuse at . Discharge Care Plan Goals for Pneumonia You have been diagnosed with pneumonia. This is a serious lung infection. Most cases of pneumonia are caused by bacteria. Pneumonia most often occurs in older adults, young children, and people with chronic health problems. Directions to Meet your Goals: 1. Home care: * Take your medicine exactly as directed. Dont skip doses. Continue taking your antibiotics as until they are all gone, even if you start to feel better. This will prevent the pneumonia from coming back. * Drink at least 8 glasses of water daily, unless directed otherwise. This helps to loosen and thin secretions so that you can cough them up. * Use a cool-mist humidifier in your bedroom. Be sure to clean the humidifier daily. * Dont use medicines to suppress your cough unless your cough is dry, painful, or interferes with your sleep. Coughing up mucus is normal. You may use an expectorant if your doctor says its okay. * You can use warm compresses or a heating pad on the lowest setting to relieve chest discomfort. Use several times a day for 15-20 minutes at a time. To prevent injury to your skin, set the temperature to warm, not hot. Dont put the compress or pad directly on your skin. Make certain it has a cover or wrap it in a towel. This is to prevent skin peters. * Get plenty of rest until your fever, shortness of breath, and chest pain go away. * Plan to get a flu shot every year. The flu is a common cause of pneumonia. Getting a flu shot every year can help prevent both the flu and pneumonia. 2. Getting the pneumococcal vaccine: * Talk with your doctor about getting the pneumococcal vaccine. Pneumococcal pneumonia is caused by bacteria that spread from person to person. It can cause minor problems, such as ear infections. But it can also turn into life- threatening illnesses of the lungs (pneumonia), the covering of the brain and spinal cord (meningitis), and the blood (bacteremia). * Make sure to ask your doctor if you should have the vaccine. Children under 2 years of age, adults over age 65, people with certain health conditions, and smokers are at the highest risk of pneumococcal disease. This vaccine can help prevent pneumococcal disease in both adults and children. 3. Follow-up care: Do Not miss your follow-up appointment. Keep up with all your appointments and yearly check ups 4. When to call your doctor: Call your doctor immediately if you have any of the following: Fever of 100.4F (38C) or higher, or as directed by your healthcare provider Mucus from the lungs (sputum) thats yellow, green, bloody, or smells bad Vomiting Any symptoms that get worse 5. Call 911: Call 911 right away if you have any of the following: Chest pain Trouble breathing Blue lips or fingernails Status ED Status: Left Department Discharge Information Discharge Date/Time: 04/16/18 14:44
[2018-04-16 14:05] VITALS: PULSE 78; RESP 17
--- NOTE | 2018-04-16 15:25 | P.PNNP ---
Subjective Interval history: Seen in AM. Reports shortness of breath on exertion. Denies any nausea or vomiting. <Neli Delgado - Last Filed: 04/16/18 15:21> Physical Exam Vital signs: Vital Signs 04/15/18 16:00 04/15/18 19:20 04/15/18 19:30 Temperature 98.8 F Pulse Rate 81 80 85 Respiratory Rate 18 18 Blood Pressure 156/72 H Pulse Oximetry 97 Pulse Oximetry [Exertion on Room Air] Pulse Oximetry [Resting on Room Air] 04/15/18 20:17 04/16/18 00:00 04/16/18 04:00 Temperature 98.6 F 98.2 F 97.9 F Pulse Rate 88 81 78 Respiratory Rate 16 20 18 Blood Pressure 138/66 128/62 145/75 H Pulse Oximetry 96 96 95 Pulse Oximetry [Exertion on Room Air] Pulse Oximetry [Resting on Room Air] 04/16/18 07:39 04/16/18 08:00 04/16/18 10:01 Temperature 97.8 F Pulse Rate 78 96 H Respiratory Rate 19 16 Blood Pressure 134/64 Pulse Oximetry 94 L Pulse Oximetry [Exertion on Room Air] 97 Pulse Oximetry [Resting on Room Air] 98 04/16/18 12:00 04/16/18 14:04 Temperature 97.9 F Pulse Rate 78 78 Respiratory Rate 16 17 Blood Pressure 127/72 Pulse Oximetry 94 L Pulse Oximetry [Exertion on Room Air] Pulse Oximetry [Resting on Room Air] Intake & Output 04/15/18 04/16/18 04/16/18 18:59 06:59 18:59 Intake Total 600 / 600 100 / 100 Balance 600 / 600 100 / 100 Weight 99 kg Intake: IV 100 / 100 100 / 100 Rocephin Inj 1,000 MG In NS Inj 100 / 100 100 / 100 100 ML @ 200 mls/hr IV.SIG Q12H MAURA Rx#:[id number] Oral 500 / 500 Other: Date of Last Bowel Movement 04/14/18 Weight On Admission 99 kg Narrative: GENERAL Awake and alert. NAD SKIN: Warm and dry. No generalized rash. NECK: Trachea midline. No JVD CARDIOVASCULAR: Regular rate and rhythm. No murmur appreciated. RESPIRATORY: No accessory muscle use. Coarse breath sounds noted thru out lung carson. GASTROINTESTINAL: Abdomen soft, non-tender, nondistended. Bowel sounds normal. MUSCULOSKELETAL: Extremities without clubbing, cyanosis, or edema. No obvious deformities. NEUROLOGICAL: Awake and alert. No obvious cranial nerve deficits. Able to move all extremities spontaneously. Normal speech. PSYCHIATRIC: Appropriate mood and affect; insight and judgment normal. <Neli Delgado - Last Filed: 04/16/18 15:21> Vital signs: Vital Signs 04/15/18 19:20 04/15/18 19:30 04/15/18 20:17 Temperature 98.6 F Pulse Rate 80 85 88 Respiratory Rate 18 16 Blood Pressure 138/66 Pulse Oximetry 96 Pulse Oximetry [Exertion on Room Air] Pulse Oximetry [Resting on Room Air] 04/16/18 00:00 04/16/18 04:00 04/16/18 07:39 Temperature 98.2 F 97.9 F Pulse Rate 81 78 78 Respiratory Rate 20 18 19 Blood Pressure 128/62 145/75 H Pulse Oximetry 96 95 Pulse Oximetry [Exertion on Room Air] Pulse Oximetry [Resting on Room Air] 04/16/18 08:00 04/16/18 10:01 04/16/18 12:00 Temperature 97.8 F 97.9 F Pulse Rate 96 H 78 Respiratory Rate 16 16 Blood Pressure 134/64 127/72 Pulse Oximetry 94 L 94 L Pulse Oximetry [Exertion on Room Air] 97 Pulse Oximetry [Resting on Room Air] 98 04/16/18 14:04 Temperature Pulse Rate 78 Respiratory Rate 17 Blood Pressure Pulse Oximetry Pulse Oximetry [Exertion on Room Air] Pulse Oximetry [Resting on Room Air] Intake & Output 04/15/18 04/16/18 04/16/18 18:59 06:59 18:59 Intake Total 600 / 600 100 / 100 Balance 600 / 600 100 / 100 Weight 99 kg Intake: IV 100 / 100 100 / 100 Rocephin Inj 1,000 MG In NS Inj 100 / 100 100 / 100 100 ML @ 200 mls/hr IV.SIG Q12H MAURA Rx#:[id number] Oral 500 / 500 Other: Date of Last Bowel Movement 04/14/18 Weight On Admission 99 kg <Clifford Doe - Last Filed: 04/16/18 16:10> Assessment and Plan - Assessment (1) ESRD (end stage renal disease) on dialysis Code(s): N18.6 - End stage renal disease; Z99.2 - Dependence on renal dialysis Status: Chronic Plan: The patient is on dialysis, Tuesdays, , and Saturdays and follows up as an outpatient with Dr. Barraza. The patient is tolerating dialysis well via left upper arm AV fistula. HD planned for Monday either here or dialysis center. Discharge plans underway. (2) Diabetes Code(s): E11.9 - Type 2 diabetes mellitus without complications Status: Acute Plan: Glucose elevated at times. On insulin (3) Pneumonia Code(s): J18.9 - Pneumonia, unspecified organism Status: Acute Plan: on antibiotics. Continue to monitor at this point. Otherwise, afebrile. (4) HTN (hypertension) Code(s): I10 - Essential (primary) hypertension Status: Chronic Plan: Blood pressure initially 200s/100s. Blood pressure is improved at this point. Continue medications. <Neli Delgado - Last Filed: 04/16/18 15:21> - Assessment (1) ESRD (end stage renal disease) on dialysis Code(s): N18.6 - End stage renal disease; Z99.2 - Dependence on renal dialysis Status: Chronic Plan: Patient with end stage renal disease, had HD done on Sat, BP was elevated. Now for discharge, to continue HD TTS. (2) Diabetes Code(s): E11.9 - Type 2 diabetes mellitus without complications Status: Acute (3) Pneumonia Code(s): J18.9 - Pneumonia, unspecified organism Status: Acute (4) HTN (hypertension) Code(s): I10 - Essential (primary) hypertension Status: Chronic Qualifiers: <Clifford Doe - Last Filed: 04/16/18 16:10>
== END 2018-04-16 14:44 | disposition home or self-care (01) | DRG 193 ==
LOC: NEPE 21:35 → NEDA 21:35 → NEPGCP 04-14 04:36
PROVIDERS: ADMIT Family Medicine; ATTEND Family Medicine
DX: Z99.2 Dependence on renal dialysis; R00.0 Tachycardia, unspecified; Z83.3 Family history of diabetes mellitus; E11.51 Type 2 diabetes mellitus with diabetic peripheral angiopathy without gangrene; E11.65 Type 2 diabetes mellitus with hyperglycemia; Z86.718 Personal history of other venous thrombosis and embolism; E87.1 Hypo-osmolality and hyponatremia; Z79.51 Long term (current) use of inhaled steroids; R06.82 Tachypnea, not elsewhere classified; J18.9 Pneumonia, unspecified organism; Z68.39 Body mass index [BMI] 39.0-39.9, adult; E66.01 Morbid (severe) obesity due to excess calories; I16.0 Hypertensive urgency; Z82.5 Family history of asthma and other chronic lower respiratory diseases; Z79.4 Long term (current) use of insulin; I12.0 Hypertensive chronic kidney disease with stage 5 chronic kidney disease or end stage renal disease; Z79.899 Other long term (current) drug therapy; E11.22 Type 2 diabetes mellitus with diabetic chronic kidney disease; Z88.0 Allergy status to penicillin; N18.6 End stage renal disease
CPT/HCPCS: 71010; 71045; 71275; 80048; 80053; 80074; 82550; 82947; 82948; 82962; 83520; 83735; 83880; 84484; 85025; 87275; 87276; 87804; 90774; 90775; 90784; 90935; 93005; 94150; 94618; 94620; 94640; 94664; 94665; 94667; 96374; 96375; 99285; C8952; J0696; J1644; J1815; J2930; Q9967